=== PATIENT | female | born 1940 | race Caucasian/White ===

== ENCOUNTER 2020-10-01 11:09 | Outpatient (REF) | payer MEDICARE, SELFPAY | END 2020-10-01 11:10 | disposition home or self-care (01) | LOC: HO.HMGCLDS 11:09 | PROVIDERS: PCP Internal Medicine; Visit Provider Internal Medicine | DX: Z13.89 Encounter for screening for other disorder (principal) ==

== ENCOUNTER 2020-10-13 14:41 | Outpatient (REF) | payer MEDICARE, SELFPAY ==
--- NOTE | ~2020-10-13 | US_ITS ---
EXAMINATION: US EXTRACRANIAL CAROTID DUPLEX, BILATERAL CLINICAL INFORMATION: This is an 80-year-old female with left carotid bruit. Carotid artery disease. COMPARISON: None TECHNIQUE: Real-time ultrasound and Doppler techniques (integrating B-mode 2-D vascular images, Doppler spectral analysis and color-flow Doppler imaging) were utilized to interrogate the extracranial carotid arteries, the vertebral arteries and proximal subclavian arteries bilaterally. The degree of stenosis is determined by criteria similar to NASCET. FINDINGS: Right Side: 1. There is minimal atherosclerotic plaque seen in the bifurcation/proximal ICA region. 2. The common carotid artery PSV proximally is 123 cm/s and distally 104 cm/s. 3. The proximal internal carotid artery velocities are 95 cm/s systolic and 11 cm/s diastolic. 4. The proximal external carotid artery PSV is 106 cm/s. 5. The vertebral artery shows antegrade flow. 6. The subclavian artery waveforms are are stenotic with elevated velocities. The velocity measures 220 cm/s. Left Side: 1. There is minimal atherosclerotic plaque seen in the bifurcation/proximal ICA region. 2. The common carotid artery PSV proximally is 155 cm/s and distally 90 cm/s. 3. The proximal internal carotid artery velocities are 90 cm/s systolic and 22 cm/s diastolic. 4. The proximal external carotid artery PSV is 87 cm/s. 5. The vertebral artery shows antegrade flow. 6. The subclavian artery waveforms are normal. US/US carotid duplex BI IMPRESSION: 1. RIGHT: Minimal, non-hemodynamically significant stenosis of the proximal right internal carotid artery corresponding to a 0-49% stenosis by velocity criteria. 2. LEFT: Minimal, non-hemodynamically significant stenosis of the proximal left internal carotid artery corresponding to a 0-49% stenosis by velocity criteria. 3. There is a hemodynamically significant stenosis within the right subclavian artery. However, both vertebral arteries are antegrade.
== END 2020-10-13 14:42 | disposition home or self-care (01) ==
LOC: HO.US 14:41
PROVIDERS: PCP Internal Medicine; Visit Provider Internal Medicine
DX: R09.89 Other specified symptoms and signs involving the circulatory and respiratory systems (principal); E78.5 Hyperlipidemia, unspecified
CPT/HCPCS: 93880

== ENCOUNTER 2021-05-23 18:01 | Emergency (ER) | payer MEDICARE, SELFPAY ==
--- NOTE | ~2021-05-23 | CT_ITS ---
EXAMINATION: CT HEAD WITHOUT CONTRAST CLINICAL INFORMATION: Agitation. Altered mental status. COMPARISON: None TECHNIQUE: Contiguous axial imaging was performed from the skull base to vertex without intravenous administration of contrast. This CT examination was performed using dose optimization techniques as appropriate, variously including the following: *Automated exposure control *Adjustment of mA and/or kV according to patient size (this includes techniques or standardized protocols for targeted exams where dose is matched to indication/reason for exam; i.e. extremities or head) *Use of iterative reconstruction technique DLP: 647 mGy-cm FINDINGS: There is no evidence of an extra-axial collection. There is no evidence of intra or extra-axial hemorrhage. The ventricles and extra-axial CSF spaces are slightly prominent compatible with mild generalized atrophy. There is nonspecific periventricular white matter disease. No mass, mass effect or infarct is seen. Review of bone windows is normal. No skull fracture is seen. Visualized paranasal sinuses, mastoid air cells and middle ears are clear. CT/CT head/brain wo con IMPRESSION: No acute findings. Mild generalized atrophy and nonspecific periventricular white matter disease.
--- NOTE | ~2021-05-23 | XR_ITS ---
EXAMINATION: XR CHEST CLINICAL INFORMATION: Leukocytosis. Altered mental status. COMPARISON: None TECHNIQUE: Frontal view of the chest was obtained. FINDINGS: The cardiac and mediastinal contours are normal. There is question of atelectasis or small infiltrate at the right lung base. The lungs are otherwise clear. There is no pleural effusion or pneumothorax. There are degenerative changes of the spine. XR/XR chest 1V IMPRESSION: Question atelectasis or small infiltrate at the right lung base.
[2021-05-23 18:09] VITALS: BP 191/95; PULSE 86; RESP 18; TEMP 36.6; O2SAT 95; BMI 30.9
--- NOTE | 2021-05-23 18:33 | ECG_ITS ---
Test Reason : GENERAL MEDICAL Blood Pressure : / mmHG Vent. Rate : 091 BPM Atrial Rate : 091 BPM P-R Int : 174 ms QRS Dur : 072 ms QT Int : 376 ms P-R-T Axes : 063 028 043 degrees QTc Int : 462 ms Normal sinus rhythm Nonspecific ST abnormality Borderline ECG No previous ECGs available Referred By: Melina Bailey Electronically Signed By:LUIS DANIEL STEWART MD
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
[2021-05-23 19:32] LABS: MANUAL DIFF FLAG NO
[2021-05-23 19:33] LABS: Basophils Absolute Auto 0.1 X10*3/uL (0.0-0.2); Basophils Percent Auto 0.4 % (0-2); Eosinophils Absolute Auto 0.2 X10*3/uL (0.0-0.4); Eosinophils Percent Auto 1.2 % (0-4); Hematocrit 41.1 % (37.0-47.0); Hemoglobin 14.5 g/dl (12.0-16.0); Imm Gran Abs Auto 0.03 X10*3/uL (0.00-0.03); Imm Gran Pct Auto 0.2 % (0.0-0.4); Lymphocytes Absolute Auto 2.8 X10*3/uL (1.2-4.9); Lymphocytes Percent Auto 20.6 % (20-40); Mean Corpuscular HGB Conc 35.3 g/dl (31.0-35.0); Mean Corpuscular Hemoglobin 31.6 pg (27.0-33.0); Mean Corpuscular Volume 89.5 fL (80.0-98.0); Monocytes Absolute Auto 0.8 X10*3/uL (0.1-1.2); Monocytes Percent Auto 6.1 % (2-11); Neutrophils Absolute Auto 9.7 x10*3/uL (2.0-8.3); Neutrophils Percent Auto 71.5 % (45-73); Platelet Count 311 X10*3/uL (160-400); Red Blood Count 4.59 X10*6/uL (4.20-5.50); Red Cell Distribution Width 12.2 % (11.0-16.0); White Blood Count 13.5 X10*3/uL (4.8-10.8)
[2021-05-23 19:35] LABS: Appearance Urine CLEAR; Color Urine STRAW; Glucose Urine UA NEG (NEG); Leukocyte Esterase Urine NEG (NEG); Nitrite Urine NEG (NEG); Specific Gravity - Urine <= 1.005 (1.005-1.025); Urine Blood NEG (NEG); Urine Ketones 5 MG/DL (NEG); Urine Protein TRACE MG/DL (NEG-TRACE)
[2021-05-23 19:39] LABS: Ammonia 31 umol/L (13-55)
[2021-05-23 19:45] LABS: Ethanol < 10 mg/dL
[2021-05-23 19:48] LABS: Amphetamine Screen Urine Not Detected (Not Detect); Barbiturates, Urine Not Detected (Not Detect); Benzodiazepines Screen Urine Not Detected (Not Detect); Cannabinoid Screen Urine Not Detected (Not Detect); Cocaine Screen Urine Not Detected (Not Detect); Fentanyl, urine Not Detected (Not Detect); Opiate Screen Urine Not Detected (Not Detect); Phencyclidine Screen Urine Not Detected (Not Detect)
[2021-05-23 19:49] LABS: Alanine Aminotransferase 20 U/L (0-31); Albumin Level 4.4 g/dL (3.5-5.0); Alkaline Phosphatase 60 U/L (39-117); Anion Gap 15 (12-20); Aspartate Amino Transferase 27 U/L (5-31); Bilirubin Direct 0.3 mg/dL (0.0-0.5); Bilirubin Total 0.8 mg/dL (0.0-1.0); Blood Urea Nitrogen 11 mg/dL (9-16); Calcium 9.6 mg/dL (8.4-10.2); Carbon Dioxide 26 mmol/L (22-29); Chloride 103 mmol/L (96-108); Creatinine Clr Calc Pharmacy 42.7; Estimated Glomerular Filt Rate 54; Glucose Random 110 mg/dL (60-115); Magnesium 2.1 mg/dL (1.6-2.6); Potassium 3.5 mmol/L (3.3-5.1); Sodium 140 mmol/L (135-145); Total Protein 6.9 g/dL (6.5-8.0)
[2021-05-23 20:08] LABS: COVID-19 Test Negative (Negative)
[2021-05-23 23:28] VITALS: BP 134/55; PULSE 68; RESP 14; O2SAT 96
[2021-05-24 00:17] VITALS: BP 128/50; PULSE 68; RESP 16; TEMP 36.9; O2SAT 93
--- NOTE | 2021-05-24 04:23 | PC.NURSE ---
CHERELLE referral completed and confirmed by Berenice [facility] overnight intake specialists
--- NOTE | 2021-05-24 06:00 | PC.NURSE ---
Patient just got transferred from main ED, wandered little bit in the POD, currently in bed resting quietly, [facility] referral completed but on hold due to care team involvement with the patient, patient thought process is coherent, thought content paranoid, VSS, will continue to monitor.
--- NOTE | 2021-05-24 08:00 | PC.NURSE ---
patient appears to remain at rest at present respirations are even and unlabored, patient appears in no distress
--- NOTE | 2021-05-24 09:44 | MHC.CARE ---
CARE Team web development intern spoke with pt's son, Bennett, who expressed concerns regarding pt's recent memory difficulties and erratic behavior in the community. Bennett did not have specific concerns relating to medication management and advocated for inpatient admission due to concerns that pt will be upset when she returns home. This sports writer discussed the criteria for inpatient admission and recommendations from the CARE Team for further neurological testing in determining outpatient treatment course. This sports writer discussed with Bennett that case management will consult the case and reach out regarding available services and recommendations. CARE Team consulted case management who will follow up.
--- NOTE | 2021-05-24 11:27 | MHC.CM.ED ---
Received case management consult from Care Team. Patient was brought to the ER by Jostin MACEDO. Patient has been cleared by the Care Team. Patient's son, Bennett, is requesting additional resources. Patient has an undiagnosed memory issue. Information provided on [facility]. Bennett will be here around 11am to transport patient home. Farrah TRAMMELL and Dr Shah aware. Continue to monitor for d/c needs.
== END 2021-05-24 11:37 | disposition home or self-care (01) ==
PROVIDERS: Physician Assistant; Emergency Provider Emergency Medicine; PCP Internal Medicine
DX: R41.82 Altered mental status, unspecified (principal); R45.1 Restlessness and agitation; R51.9 Headache, unspecified; F43.20 Adjustment disorder, unspecified; F41.1 Generalized anxiety disorder; F43.0 Acute stress reaction; Z20.822 Contact with and (suspected) exposure to COVID-19; Z79.899 Other long term (current) drug therapy; Z63.79 Other stressful life events affecting family and household
CPT/HCPCS: 36415; 70450; 71045; 80048; 80076; 80307; 81003; 82077; 82140; 83735; 85025; 87635; 93005; 99284; 99285

== ENCOUNTER 2022-06-07 12:50 | Outpatient (REF) | payer OTHER, SELFPAY | END 2022-06-07 12:51 | disposition home or self-care (01) | LOC: HO.SH 12:50 | PROVIDERS: Visit Provider Internal Medicine | DX: Z01.118 Encounter for examination of ears and hearing with other abnormal findings (principal); H90.3 Sensorineural hearing loss, bilateral | CPT/HCPCS: 92557; 92567 ==

== ENCOUNTER 2022-08-31 15:01 | Outpatient (REF) | payer OTHER, SELFPAY ==
[2022-08-31 16:49] LABS: MANUAL DIFF FLAG NO
[2022-08-31 16:56] LABS: Basophils Absolute Auto 0.1 X10*3/uL (0.0-0.2); Basophils Percent Auto 0.8 % (0-2); Eosinophils Absolute Auto 0.2 X10*3/uL (0.0-0.4); Eosinophils Percent Auto 1.8 % (0-4); Hematocrit 41.5 % (37.0-47.0); Hemoglobin 14.2 g/dl (12.0-16.0); Imm Gran Abs Auto 0.03 X10*3/uL (0.00-0.03); Imm Gran Pct Auto 0.3 % (0.0-0.4); Lymphocytes Absolute Auto 3.8 X10*3/uL (1.2-4.9); Lymphocytes Percent Auto 35.5 % (20-40); Mean Corpuscular HGB Conc 34.2 g/dl (31.0-35.0); Mean Corpuscular Hemoglobin 31.1 pg (27.0-33.0); Mean Platelet Volume 10.6 fL (9.4-12.3); Monocytes Absolute Auto 0.7 X10*3/uL (0.1-1.2); Monocytes Percent Auto 6.8 % (2-11); Neutrophils Absolute Auto 5.8 x10*3/uL (2.0-8.3); Neutrophils Percent Auto 54.8 % (45-73); Platelet Count 373 X10*3/uL (160-400); Red Blood Count 4.56 X10*6/uL (4.20-5.50); Red Cell Distribution Width 11.9 % (11.0-16.0); White Blood Count 10.6 X10*3/uL (4.8-10.8)
[2022-08-31 18:28] LABS: Alanine Aminotransferase 20 U/L (0-31); Albumin Level 4.4 g/dL (3.5-5.0); Alkaline Phosphatase 76 U/L (39-117); Anion Gap 15 (12-20); Aspartate Amino Transferase 27 U/L (5-31); Bilirubin Total 0.6 mg/dL (0.0-1.0); Blood Urea Nitrogen 16 mg/dL (9-16); C Reactive Protein 0.98 mg/dL (< or = 0.50); Calcium 9.8 mg/dL (8.4-10.2); Carbon Dioxide 30 mmol/L (22-29); Chloride 101 mmol/L (96-108); Estimated Glomerular Filt Rate 50; Glucose Random 91 mg/dL (60-115); Potassium 4.6 mmol/L (3.3-5.1); Sodium 141 mmol/L (135-145)
[2022-08-31 18:48] LABS: Folate 11.6 ng/mL (> or = 4.0); TSH reflex Free T4 2.18 uIU/mL (0.32-4.0); Vitamin B12 600 pg/mL (200-900); Vitamin D 25-OH Total 54.9 ng/mL (>30)
== END 2022-08-31 15:02 | disposition home or self-care (01) ==
LOC: HO.HMGCLDS 15:01
PROVIDERS: PCP Internal Medicine; Visit Provider Internal Medicine
DX: R26.89 Other abnormalities of gait and mobility (principal); I10 Essential (primary) hypertension
CPT/HCPCS: 36415; 80053; 82306; 82607; 82746; 84443; 85025; 86140

== ENCOUNTER 2022-12-12 10:39 | Day surgery (SDC) | payer OTHER, MEDICARE, SELFPAY ==
[2022-12-07 13:20] VITALS: BMI 32.6
--- NOTE | 2022-12-09 08:12 | MHC.SHP ---
Pre-Procedural Eval Section A Date of Service: 12/09/22 The patient is an INPATIENT: No Changes since office visit: No Cold of Flu in the past 2 weeks, No New Medical Problems, No Changes in Medication and No Patient answered all questions The History & Physical has been completed within 30 days and I have reviewed it.: Yes Section B Chief Complaint: Age-related nuclear cataract, right eye Allergies: Allergies Allergy/AdvReac Type Severity Reaction Status Date / Time No Known Allergies Allergy Verified 12/07/22 12:39 Plan Diagnosis/Plan: Unchanged I have reviewed the history and physical and performed a pertinent physical examination on my patient. No changes have occurred unless specified. Time Spent With Patient Time: Total time managing care of this patient today ____ minutes.
--- NOTE | 2022-12-09 09:37 | P.CONAN_ITS ---
Documented by User: Bhumi Govea NP 12/09/22 09:38 HPI - Anesthesia Eval Consult details Narrative: 82yo F for Right Cataract Multifocal with IOL Insertion PCP cleared No previous cataract on record PMF Active Problems Active Problems: All Active Problems (Updated 12/07/22 @ 13:35 by Betty Arevalo MD) Cataract (Acute) Tooth pulpitis (Acute) Poor dentition (Acute) Hearing loss (Acute) HTN (hypertension) (Acute) Poor balance (Acute) Glaucoma (Acute) Hyperlipidemia (Acute) Left carotid bruit (Acute) Past Medical History Medical History Glaucoma Head trauma HTN (hypertension) Hyperlipidemia Left carotid bruit Family History Family History Father No problems noted. Mother No problems noted. Surgical History Surgical History H/O colonoscopy H/O left knee surgery Social History Social History Household Members: Children Household Members Other:: [facility] - assisted Living Housing: House Are you a primary property caretaker to a significant other at home: No Alcohol intake: current Alcohol intake frequency: holidays/special occasions only Patient Tobacco Use Status: Never used Tobacco e-Cigarette/Vaping Use: Never Used Second Hand Smoke Exposure: No Use of substances other than those prescribed or required for medical reasons: No Have you been hit, kicked, punched, or otherwise hurt by someone within the past year? If so, by whom?: No Are you DNR?: No Advance Directives: No Advance Directives Information Provided: Yes Advance Directives on File: No Recently lost weight without trying: No Eating poorly because of decreased appetite: No Nutrition Risks: No Nutritional Risk Current occupational status: retired Cognitive needs: No Hearing needs: No Vision needs: Yes Meds Allergies Allergy/AdvReac Type Severity Reaction Status Date / Time No Known Allergies Allergy Verified 12/07/22 12:39 Home Medications Medication Instructions Recorded Confirmed Last Taken Type brimonidine 0.2 % eye drops 1 drp ophthalmic (eye) BID 05/24/21 09/08/22 Unknown History latanoprost 0.005 % eye drops 1 drp ophthalmic (eye) BEDTIME 05/24/21 12/07/22 Unknown History omega-3 fatty acids 1,000 mg PO DAILY 05/24/21 12/07/22 Unknown History elderberry fruit 350 mg capsule mg PO 08/31/22 09/08/22 Unknown History Exam Exam Date and Time: December 09, 2022 0937 Height,Weight and Vital Signs: Height 5 ft 2 in Weight 80.739 kg Assessment and Plan Assessment Anesthesia Assessment: Chart Reviewed Documented by User: Jaycob Steiner MD 12/12/22 12:06 [facility]LY [facility] Past Medical History Medical History Glaucoma Head trauma HTN (hypertension) Hyperlipidemia Left carotid bruit Family History Family History Father No problems noted. Mother No problems noted. Family history of problems with anesthesia: No Surgical History Surgical History H/O colonoscopy H/O left knee surgery History of Problems with Anesthesia: No Social History Social History Household Members: Children Household Members Other:: [facility] - assisted Living Housing: House Are you a primary property caretaker to a significant other at home: No Alcohol intake: current Alcohol intake frequency: holidays/special occasions only Patient Tobacco Use Status: Never used Tobacco e-Cigarette/Vaping Use: Never Used Second Hand Smoke Exposure: No Use of substances other than those prescribed or required for medical reasons: No Have you been hit, kicked, punched, or otherwise hurt by someone within the past year? If so, by whom?: No Are you DNR?: No Advance Directives: No Advance Directives Information Provided: Yes Advance Directives on File: No Recently lost weight without trying: No Eating poorly because of decreased appetite: No Nutrition Risks: No Nutritional Risk Current occupational status: retired Cognitive needs: No Hearing needs: No Vision needs: Yes Meds Allergies Allergy/AdvReac Type Severity Reaction Status Date / Time No Known Allergies Allergy Verified 12/07/22 12:39 Home Medications Medication Instructions Recorded Confirmed Last Taken Type brimonidine 0.2 % eye drops 1 drp ophthalmic (eye) BID 05/24/21 09/08/22 Unknown History latanoprost 0.005 % eye drops 1 drp ophthalmic (eye) BEDTIME 05/24/21 12/07/22 Unknown History omega-3 fatty acids 1,000 mg PO DAILY 05/24/21 12/07/22 Unknown History elderberry fruit 350 mg capsule mg PO 08/31/22 09/08/22 Unknown History Exam Airway Mallampati Class: II TM Dist: >3cm Neck ROM: Full Loose/Missing/Broken Teeth: Yes (extremely poor dentition globally) Heart: [id number] Lungs: cta b/l Assessment and Plan Assessment Anesthesia Assessment: Anesthesia Plan Discussed Final Anesthetic Review Family History of Problems with Anesthesia: No History of Problems with Anesthesia: No NPO: Yes ASA Class: III Final Preanesthetic Review: No Changes in Pt Med Stat, Meds/Allgs Chart Reviewed, Consent Obtained/Reviewed and Anes Risks/Benef Reviewed Patient Risk: Intermediate Procedure Risk: Low Assessment/Block/Sedation in SS: Assess/Block/Sedation-SS Anesthetic Plan Anesthetic Plan: MAC: and Agree w/ Assess. and Plan Disposition: Standard PACU
[2022-12-12 11:14] VITALS: BP 157/75; PULSE 81; RESP 16; TEMP 36.4; O2SAT 95
[2022-12-12] MEDS: Tetracaine HCl/PF 0.5% Oph Sol 4 ML DROPS 1 DROP EYE-RIGHT (11:17)
[2022-12-12] MEDS: Lactated Ringers 500 ML 50 ML IV (11:17)
[2022-12-12] MEDS: Cyclopentolate 1 % Ophth Sol 2 ML DRPBTL 1 DROP EYE-RIGHT ×3 (11:18→11:28)
[2022-12-12] MEDS: Tropicamide 1 % Ophth Sol 3 ML BTL 1 DROP EYE-RIGHT ×3 (11:19→11:29)
[2022-12-12] MEDS: Ketorolac Tromethamine 0.5% Op 5 ML DROPS 1 DROP EYE-RIGHT ×3 (11:20→11:29)
[2022-12-12] MEDS: Phenylephrine HCL 2.5% Oph SoL 2 ML BOTTLE 1 DROP EYE-RIGHT ×3 (11:23→11:31)
--- NOTE | 2022-12-12 11:54 | HO.PNOPHT ---
Ophthalmology Procedure Procedure Date of Service: 12/12/22 Ophthalmology Viscoelastic: Jes Umanzort Dual Pack Pro Ophthalmology Lenses: TECSHALOM [id number] (21) Procedure Notes: PREOPERATIVE DIAGNOSIS: Decreased visual acuity right eye secondary to cataract POSTOPERATIVE DIAGNOSIS: Same PROCEDURE: Right cataract extraction with intraocular lens insertion SURGEON: Chintan Good M.D. ANESTHESIA: Topical/MAC ESTIMATED BLOOD LOSS: None COMPLICATIONS: None After obtaining informed consent, the patient was brought to the operating room suite and placed in the supine position. After adequate sedation per anesthesia, topical drops of Tetracaine were given to the right eye. The eye was then prepped and draped in the usual sterile fashion. The operating room microscope was then positioned over the operative eye and a lid speculum placed. A paracentesis was created. Viscoelastic was then instilled into the anterior chamber. A three plane incision was then created temporally, utilizing a 2.85 mm keratome. Capsulotomy forceps were then utilized to create a circular tear capsulotomy. Hydrodissection and hydrodelineation were carried out until adequate mobilization of the nucleus occurred. Phacoemulsification was then utilized to remove the dense central nucleus followed by removal of the cortical material utilizing the automated aspiration irrigation unit. Viscoelastic was instilled into the posterior capsular bag followed by placement of a posterior chamber intraocular lens without difficulty. The residual Viscoelastic was then removed utilizing the automated IA machine. The wound was checked and found to be watertight. The patient tolerated the procedure well and the lid speculum was removed. Intracameral injection of Vigamox 0.1 mL followed by a subtenon injection of Kenalog-40 0.2 mL were administered. The patient will be seen in the a.m.
[2022-12-12 12:30] VITALS: BP 160/69; PULSE 64; RESP 18; TEMP 36.3; O2SAT 99
== END 2022-12-12 12:41 | disposition home or self-care (01) ==
PROVIDERS: PCP Internal Medicine; Visit Provider Ophthalmology
PROC: (CPT 66985; principal; 2022-12-12 12:50)
DX: H25.11 Age-related nuclear cataract, right eye (principal); H54.7 Unspecified visual loss; H40.1422 Capsular glaucoma with pseudoexfoliation of lens, left eye, moderate stage; Z83.511 Family history of glaucoma; I10 Essential (primary) hypertension; J45.909 Unspecified asthma, uncomplicated; Z79.899 Other long term (current) drug therapy; Z88.8 Allergy status to other drugs, medicaments and biological substances; Z87.891 Personal history of nicotine dependence
CPT/HCPCS: 66984; J2250; J3301; V2632

== ENCOUNTER 2022-12-26 09:22 | Day surgery (SDC) | payer OTHER, SELFPAY ==
[2022-09-07 10:30] VITALS: BMI 31.1
[2022-12-07 15:18] VITALS: BMI 32.6
--- NOTE | 2022-12-22 14:58 | HO.ANESPROP2 ---
Documented by User: Bhumi Govea NP 12/22/22 14:59 HPI - Anesthesia Eval Consult details Narrative: 82yo F for Left Cataract Multifocal with IOL Insertion PCP cleared Right eye 12/12/22 with MAC: midaz 1 PMFSH Active Problems Active Problems: All Active Problems (Updated 12/07/22 @ 13:35 by Betty Arevalo MD) Cataract (Acute) Tooth pulpitis (Acute) Poor dentition (Acute) Hearing loss (Acute) HTN (hypertension) (Acute) Poor balance (Acute) Glaucoma (Acute) Hyperlipidemia (Acute) Left carotid bruit (Acute) Past Medical History Medical History Glaucoma Head trauma HTN (hypertension) Hyperlipidemia Left carotid bruit Family History Family History Father No problems noted. Mother No problems noted. Family history of problems with anesthesia: No Surgical History Surgical History H/O colonoscopy H/O left knee surgery History of Problems with Anesthesia: No Social History Social History Household Members: Children Household Members Other:: [facility] - assisted Living Housing: House Are you a primary healthcare network pricing consultant to a significant other at home: No Alcohol intake: current Alcohol intake frequency: holidays/special occasions only Patient Tobacco Use Status: Never used Tobacco e-Cigarette/Vaping Use: Never Used Second Hand Smoke Exposure: No Are you DNR?: No Advance Directives: No Advance Directives Information Provided: Yes Advance Directives on File: No Recently lost weight without trying: No Nutrition Risks: No Nutritional Risk Current occupational status: retired Cognitive needs: No Hearing needs: No Vision needs: Yes Meds Allergies Allergy/AdvReac Type Severity Reaction Status Date / Time No Known Allergies Allergy Verified 12/07/22 12:39 Home Medications Medication Instructions Recorded Confirmed Last Taken Type brimonidine 0.2 % eye drops 1 drp ophthalmic (eye) BID 05/24/21 09/08/22 Unknown History latanoprost 0.005 % eye drops 1 drp ophthalmic (eye) BEDTIME 05/24/21 12/07/22 Unknown History omega-3 fatty acids 1,000 mg PO DAILY 05/24/21 12/07/22 Unknown History elderberry fruit 350 mg capsule mg PO 08/31/22 09/08/22 Unknown History Exam Exam Date and Time: December 22, 2022 1458 Height,Weight and Vital Signs: Height 5 ft 2 in Weight 80.739 kg Assessment and Plan Assessment Anesthesia Assessment: Chart Reviewed Final Anesthetic Review Family History of Problems with Anesthesia: No History of Problems with Anesthesia: No Documented by User: Sachin Ibrahim MD 12/26/22 10:08 [facility] Past Medical History Medical History Glaucoma Head trauma HTN (hypertension) Hyperlipidemia Left carotid bruit Family History Family History Father No problems noted. Mother No problems noted. Surgical History Surgical History H/O colonoscopy H/O left knee surgery Social History Social History Household Members: Children Household Members Other:: [facility] - assisted Living Housing: House Are you a primary healthcare network pricing consultant to a significant other at home: No Alcohol intake: current Alcohol intake frequency: holidays/special occasions only Patient Tobacco Use Status: Never used Tobacco e-Cigarette/Vaping Use: Never Used Second Hand Smoke Exposure: No Are you DNR?: No Advance Directives: No Advance Directives Information Provided: Yes Advance Directives on File: No Recently lost weight without trying: No Nutrition Risks: No Nutritional Risk Current occupational status: retired Cognitive needs: No Hearing needs: No Vision needs: Yes Meds Allergies Allergy/AdvReac Type Severity Reaction Status Date / Time No Known Allergies Allergy Verified 12/07/22 12:39 Home Medications Medication Instructions Recorded Confirmed Last Taken Type brimonidine 0.2 % eye drops 1 drp ophthalmic (eye) BID 05/24/21 09/08/22 Unknown History latanoprost 0.005 % eye drops 1 drp ophthalmic (eye) BEDTIME 05/24/21 12/07/22 Unknown History omega-3 fatty acids 1,000 mg PO DAILY 05/24/21 12/07/22 Unknown History elderberry fruit 350 mg capsule mg PO 08/31/22 09/08/22 Unknown History Exam Airway Mallampati Class: II TM Dist: >3cm Neck ROM: Full Loose/Missing/Broken Teeth: Yes, Upper and Lower Assessment and Plan Assessment Anesthesia Assessment: Anesthesia Plan Discussed Final Anesthetic Review NPO: Yes ASA Class: II Final Preanesthetic Review: No Changes in Pt Med Stat, Meds/Allgs Chart Reviewed, Consent Obtained/Reviewed and Anes Risks/Benef Reviewed Patient Risk: Low Procedure Risk: Low Anesthetic Plan Anesthetic Plan: MAC: Disposition: Standard PACU
--- NOTE | 2022-12-23 08:56 | MHC.SHP ---
Pre-Procedural Eval Section A Date of Service: 12/23/22 The patient is an INPATIENT: No Changes since office visit: No Cold of Flu in the past 2 weeks, No New Medical Problems, No Changes in Medication and No Patient answered all questions The History & Physical has been completed within 30 days and I have reviewed it.: Yes Section B Chief Complaint: Age-related nuclear cataract, left eye Allergies: Allergies Allergy/AdvReac Type Severity Reaction Status Date / Time No Known Allergies Allergy Verified 12/07/22 12:39 Plan Diagnosis/Plan: Unchanged I have reviewed the history and physical and performed a pertinent physical examination on my patient. No changes have occurred unless specified. Time Spent With Patient Time: Total time managing care of this patient today ____ minutes.
[2022-12-26 09:28] VITALS: BP 170/89; PULSE 77; RESP 20; TEMP 36.1; O2SAT 98
[2022-12-26] MEDS: Phenylephrine HCL 2.5% Oph SoL 2 ML BOTTLE 1 DROP EYE-LEFT ×3 (09:45→09:47)
[2022-12-26] MEDS: Cyclopentolate 1 % Ophth Sol 2 ML DRPBTL 1 DROP EYE-LEFT ×3 (09:45→09:47)
[2022-12-26] MEDS: Ketorolac Tromethamine 0.5% Op 5 ML DROPS 1 DROP EYE-LEFT ×3 (09:45→09:47)
[2022-12-26] MEDS: Tetracaine HCl/PF 0.5% Oph Sol 4 ML DROPS 1 DROP EYE-LEFT (09:45)
[2022-12-26] MEDS: Tropicamide 1 % Ophth Sol 3 ML BTL 1 DROP EYE-LEFT ×3 (09:45→09:47)
[2022-12-26] MEDS: Lactated Ringers 500 ML 50 ML IV (09:45)
--- NOTE | 2022-12-26 10:09 | PC.NURSE ---
PT FELL YESTERDAY DENIES LOC DENIES HITTING HEAD DENIES PAIN ANESTHESIA AWARE NEUROS INTACT
--- NOTE | 2022-12-26 10:33 | HO.PNOPHT ---
Ophthalmology Procedure Procedure Date of Service: 12/26/22 Ophthalmology Viscoelastic: Healon Duet Dual Pack Pro Ophthalmology Lenses: TECNIS [id number] (20.5) Procedure Notes: PREOPERATIVE DIAGNOSIS: Decreased visual acuity left eye secondary to cataract POSTOPERATIVE DIAGNOSIS: Same PROCEDURE: Left cataract extraction with intraocular lens insertion SURGEON: Chintan Good M.D. ANESTHESIA: Topical/MAC ESTIMATED BLOOD LOSS: None COMPLICATIONS: None After obtaining informed consent, the patient was brought to the operation room suite and placed in the supine position. After adequate sedation per anesthesia, topical drops of Tetracaine were given to the left eye. The eye was then prepped and draped in the usual sterile fashion. The operating room microscope was then positioned over the operative eye and a lid speculum placed. A paracentesis was created. Viscoelastic was then instilled into the anterior chamber. A three plane incision was then created temporally, utilizing a 2.85 mm keratome. Capsulotomy forceps were then utilized to create a circular tear capsulotomy. Hydrodissection and hydrodelineation were carried out until adequate mobilization of the nucleus occurred. Phacoemulsification was then utilized to remove the dense central nucleus followed by removal of the cortical material utilizing the automated aspiration irrigation unit. Viscoat elastic was instilled into the posterior capsular bag followed by placement of a posterior chamber intraocular lens without difficulty. The residual Viscoat elastic was then removed utilizing the automated IA machine. The wound was check and found to be watertight. The patient tolerated the procedure well and the lid speculum was removed. Intracameral injection of Vigamox 0.1 mL followed by a subtenon injection of Kenalog-40 0.2 mL were administered. The patient will be seen in the a.m.
[2022-12-26 11:03] VITALS: BP 177/78; PULSE 66; RESP 18; TEMP 36.2; O2SAT 97
== END 2022-12-26 11:06 | disposition home or self-care (01) ==
PROVIDERS: PCP Internal Medicine; Visit Provider Ophthalmology
PROC: (CPT 66985; principal; 2022-12-26 10:50)
DX: H25.12 Age-related nuclear cataract, left eye (principal); H54.7 Unspecified visual loss; H40.1422 Capsular glaucoma with pseudoexfoliation of lens, left eye, moderate stage; I10 Essential (primary) hypertension; E78.5 Hyperlipidemia, unspecified; D64.9 Anemia, unspecified; J45.909 Unspecified asthma, uncomplicated; Z79.899 Other long term (current) drug therapy
CPT/HCPCS: 66984; J2250; J3301; V2632

== ENCOUNTER 2023-03-23 12:17 | Outpatient (AMB) | payer OTHER, SELFPAY ==
--- NOTE | 2023-03-23 12:53 | MHC.PC.OV ---
Vital Signs 03/23/23 12:54 Height 5 ft 2 in Weight 196 lb BMI 35.8 BP 140/82 H Blood Pressure Location Lt brachial Position Sitting Pulse 86 Pulse Source Pulse Oximeter Pulse Oximetry (%) 97 Oxygen Delivery Method Room Air Intake Visit Reasons: ER [facility] after fall 03/17 Intake Note: Pt is here today for ER follow up. Allergies No Known Allergies Allergy (Verified 03/23/23 12:54) Tobacco use date assessed: 03/23/23 Fall risk assessment: 2 + Falls in past year Last assessed Fall Risk: 03/23/23 Dental Screening Dental Screen Date: 03/23/23 Did you have a dental visit in the last 12 months?: No Did you have a dental problem in the last 6 months where you did not have access to dental care?: No Was dental information given to patient?: Patient declined HPI ER [facility] after fall 03/17 HPI Details Pt presents for f/u of ER visit after a fall. She fell on the right side and developed hematoma over the right buttock and thigh that is slowly improving. Workup in the ER including brain CT was negative. Hypertension is controlled on amlodipine PFSH Medical History HTN (hypertension) Hyperlipidemia Left carotid bruit Head trauma Glaucoma Surgical History H/O left knee surgery H/O colonoscopy Family History Father No problems noted. Mother No problems noted. Social History Household Members: Children Household Members Other:: [facility] - assisted Living Housing: House Are you a primary patient care technician to a significant other at home: No Alcohol intake: current Alcohol intake frequency: holidays/special occasions only Patient Tobacco Use Status: Never used Tobacco e-Cigarette/Vaping Use: Never Used Second Hand Smoke Exposure: No Current occupational status: retired Cognitive needs: No Hearing needs: No Vision needs: Yes Questionnaire Thrive Questionnaire Date Thrive assessed: 08/31/22 RADHA-7 AMB Questionnaire RADHA-7 Date RADHA - 7 assessed: 08/31/22 Source: Developed by Drs. Jan Lebron, Rachel Azul, Gualberto Parada and colleagues, with an educational chava from [employer]. Review of Systems Const All systems reviewed & are unremarkable except as noted in HPI and below Reports no additional complaints Eyes Reports no additional complaints ENT Reports no additional complaints Card Reports no additional complaints Resp Reports no additional complaints GI Reports no additional complaints Reports no additional complaints Physical exam (Primary Care) Vital Signs: Last Vital Signs Pulse 86 03/23/23 12:54 BP 160/82 H 03/23/23 12:54 Pulse Ox 97 03/23/23 12:54 Oxygen Delivery Method Room Air 03/23/23 12:54 BMI result Body Mass Index 35.8 Tobacco/Smoking Status: Tobacco use Status Tobacco use date assessed 03/23/23 03/23/23 13:03 Patient Tobacco Use Status Never used Tobacco 03/23/23 13:03 e-Cigarette/Vaping Use Never Used 03/23/23 12:53 Thrive Assessment: Date of Thrive Assessment Date Thrive assessed 08/31/22 03/23/23 12:53 Const General: no acute distress HENMT Mouth: Normal oral and palatal mucosa present Eyes General: appearance normal, both eyes and all related structures Neck Neck: Yes supple Resp Auscultation: clear to auscultation bilaterally Cardio Rhythm: regular rhythm Heart sounds: S1 normal heart sound present and S2 normal heart sound present GI Palpation (GI): Soft to palpation Auscultation: normal bowel sounds Skin Other: Extensive subcutaneous hematoma over right buttock and lateral thigh Assessment and Plan Assessment & Plan (1) HTN (hypertension): Code(s): I10 - Essential (primary) hypertension Plan: Increase amlodipine to 2.5 mg twice a day, patient will monitor blood pressure at home and follow-up in 1 month for blood pressure check (2) Hematoma: Code(s): T14.8XXA - Other injury of unspecified body region, initial encounter Plan: Supportive care discussed with the patient Coding Level of Care Code Est Pt Level 3 (68110) Diagnoses HTN (hypertension) I10 Hematoma T14.8XXA
[2023-03-23 12:54] VITALS: BP 140/82; PULSE 86; O2SAT 97; BMI 35.8
== END 2023-03-23 15:18 | disposition home or self-care (01) ==
PROVIDERS: PCP Internal Medicine; Visit Provider Internal Medicine
DX: I10 Essential (primary) hypertension (principal); T14.8XXA Other injury of unspecified body region, initial encounter
CPT/HCPCS: 99213

== ENCOUNTER 2024-03-28 14:24 | Outpatient (AMB) | payer MEDICARE, OTHER, SELFPAY ==
[2024-03-28 14:31] VITALS: BP 135/80; PULSE 76; O2SAT 97; BMI 34.0
--- NOTE | 2024-03-28 14:31 | MHC.PC.OV ---
Vital Signs 03/28/24 14:31 03/28/24 15:09 Height 5 ft 2 in Weight 186 lb BMI 34.0 BP 135/80 139/78 Blood Pressure Location Rt brachial Rt brachial Position Sitting Standing Pulse 76 Pulse Source Pulse Oximeter Pulse Oximetry (%) 97 Oxygen Delivery Method Room Air Intake Visit Reasons: multiple falls Intake Note: Pt is here today for a follow up visit. Pt states that she had multiple falls. Allergies No Known Allergies Allergy (Verified 03/28/24 14:34) Medication List - Last Reconciled 03/28/24 by Betty Arevalo MD amlodipine 2.5 mg PO DAILY blood pressure monitor As directed to monitor blood pressure brimonidine 0.2% 1 drp ophthalmic (eye) BID cholecalciferol (vitamin D3) (Vitamin D3) 25 mcg PO DAILY elderberry fruit mg PO latanoprost 0.005% 1 drp ophthalmic (eye) BEDTIME miscellaneous medical supply Blood pressure cuff as directed QD; omega-3 fatty acids 1,000 mg PO DAILY Tobacco use date assessed: 03/23/23 Dental Screening Dental Screen Date: 03/23/23 HPI multiple falls HPI Details Patient presents for the follow-up of ER visits for frequent falls. She has been tripping over and falling but denies head injury. Patient reports feeling off balance when standing up. She denies lightheadedness chest pain shortness of breath palpitations. Patient denies weakness or numbness in extremities, change in bowel bladder function. Patient has been taking amlodipine and her blood pressure is usually well controlled according to the patient. [facility] Medical History HTN (hypertension) Hyperlipidemia Left carotid bruit Head trauma Glaucoma Surgical History H/O left knee surgery H/O colonoscopy Family History Father No problems noted. Mother No problems noted. Social History Household Members: Children Household Members Other:: [facility] assisted [facility] Housing: House Are you a primary health care consultant to a significant other at home: No Alcohol intake: current Alcohol intake frequency: holidays/special occasions only Patient Tobacco Use Status: Never used Tobacco e-Cigarette/Vaping Use: Never Used Second Hand Smoke Exposure: No Current occupational status: retired Cognitive needs: No Hearing needs: No Vision needs: Yes Questionnaire PHQ-9 Over the last 2 weeks, how often have you been bothered by any of the following problems? 1. Little interest or pleasure in doing things: not at all 2. Feeling down, depressed, or hopeless: not at all 3. Trouble falling or staying asleep, or sleeping too much: not at all 4. Feeling tired or having little energy: not at all 5. Poor appetite or overeating: not at all 6. Feeling bad about yourself - or that you are a failure or have let yourself or your family down: not at all 7. Trouble concentrating on things, such as reading the newspaper or watching television: not at all 8. Moving or speaking so slowly that other people could have noticed. Or the opposite - being so fidgety or restless that you have been moving around a lot more than usual: not at all 9. Thoughts that you would be better off or of hurting yourself in some way: not at all Total score: 0 Depression Screening Interpretation: Negative Depression Screening Done: Yes 89754 - PHQ-9 Billing: Yes Source: Developed by Drs. Jan Lebron, Rachel Azul, Gualberto Parada and colleagues, with an educational chava from [employer]. Thrive Questionnaire Date Thrive assessed: 03/28/24 I am a: Patient What is your living situation today?: I choose not to answer this question Within the past 12 months, did the food you bought not last and you didn't have the money to get more?: I choose not to answer this question Within the past 12 months, did you worry whether your food would run out before you got money to buy more?: I choose not to answer this question Do you have trouble paying for medicines?: I choose not to answer this question Do you have trouble getting transportation to medical appointments?: I choose not to answer this question Do you have trouble paying your heating and electricity bill?: I choose not to answer this question Do you have trouble taking care of your child, family member or friend?: I choose not to answer this question Do you have trouble with day-to-day activities such as bathing, preparing meals, shopping, managing finances, etc.?: I choose not to answer this question Are you currently unemployed and looking for a job?: I choose not to answer this question Are you interested in more education?: I choose not to answer this question Please select the resources that you would like help with: None Currently or been in a relationship where the following occur: I choose not to answer THRIVE Score: 0 AUDIT C Alcohol Use Questionnaire (AUDIT-C) 1. How often do you have a drink containing alcohol?: Never 3. How often do you have six or more drinks on one occasion?: Never Total Score: 0 RADHA-7 AMB Questionnaire RADHA-7 Date RADHA - 7 assessed: 03/28/24 Feeling nervous, anxious, or on edge: 0 = Not at all Not being able to stop or control worryin = Not at all Worrying too much about different things: 0 = Not at all Trouble relaxin = Not at all Being so restless that it is hard to sit still: 0 = Not at all Becoming easily annoyed or irritable: 0 = Not at all Feeling afraid as if something awful might happen: 0 = Not at all Total RADHA-7 score (0-4 normal; 5-9 mild; 10-14 moderate; 15-21 severe): 0 Source: Developed by Drs. Jan Lebron, Rachel Azul, Gualberto Parada and colleagues, with an educational chava from [employer]. RADHA-7 Assessment Billing RADHA-7 Assessment Tool: RADHA-7 Assessment 22828 Review of Systems Const All systems reviewed & are unremarkable except as noted in HPI and below Eyes Reports no additional complaints Card Reports no additional complaints Resp Reports no additional complaints GI Reports no additional complaints Reports no additional complaints Physical exam (Primary Care) Vital Signs: Last Vital Signs Pulse 76 03/28/24 14:31 Pulse Ox 97 03/28/24 14:31 Oxygen Delivery Method Room Air 03/28/24 14:31 BMI result Body Mass Index 34.0 Tobacco/Smoking Status: Tobacco use Status Tobacco use date assessed 03/23/23 03/28/24 14:37 Patient Tobacco Use Status Never used Tobacco 03/28/24 14:37 e-Cigarette/Vaping Use Never Used 03/28/24 14:37 PHQ-9: PHQ-9 Score PHQ-9: Total score 0 03/28/24 14:37 Depression Screening Interpretation: Negative Thrive Assessment: Date of Thrive Assessment Date Thrive assessed 03/28/24 03/28/24 14:37 Currently or been in a relationship where the following occur: I choose not to answer Const General: no acute distress HENMT Head: Yes normal to inspection Ears: hearing grossly normal bilaterally Eyes General: appearance normal, both eyes and all related structures Neck Neck: Yes supple Resp Effort & Inspection: normal respiratory effort Auscultation: clear to auscultation bilaterally Cardio Rhythm: regular rhythm Heart sounds: S1 normal heart sound present and S2 normal heart sound present GI Inspection: Yes normal to inspection Palpation (GI): Soft to palpation Neuro Other: Masklike face, increase muscle tone upper and lower extremities bilaterally General: CN's II-XI intact bilaterally Gait exam (Neuro): Shuffling gait present Motor exam (neuro): 5/5 motor strength present throughout and Motor abnormalities not present Coordination: [id number] test normal Romberg Test: Negative Assessment and Plan Assessment & Plan (1) HTN (hypertension): Code(s): I10 - Essential (primary) hypertension Plan: Continue amlodipine. Patient will have blood pressure monitored at the assisted living and amlodipine may need to be increased to twice a day if the blood pressure is persistently elevated (2) Poor balance: Code(s): R26.89 - Other abnormalities of gait and mobility Plan: Start physical therapy and refer to [facility] neurologist for evaluation for possible Parkinson's disease Orders: Referrals Neurology Referral G20.A1 - Parkinson's disease without dyskinesia, without mention of fluctuations, R26.89 - Other abnormalities of gait and mobility Coding Level of Care Code Est Pt Level 4 (42958) Diagnoses HTN (hypertension) I10 Poor balance R26.89 Additional Codes RADHA-7 Assessment Billing - RADHA-7 Assessment Tool: RADHA-7 Assessment 09967 ([id number])
[2024-03-28 15:09] VITALS: BP 139/78
== END 2024-03-28 15:06 | disposition home or self-care (01) ==
PROVIDERS: PCP Internal Medicine; Visit Provider Internal Medicine
DX: I10 Essential (primary) hypertension (principal); R26.89 Other abnormalities of gait and mobility

== ENCOUNTER → 2024-03-28 14:24 | Outpatient (BNVA) | payer OTHER, SELFPAY | PROVIDERS: PCP Internal Medicine; Visit Provider Internal Medicine | DX: I10 Essential (primary) hypertension (principal); R26.89 Other abnormalities of gait and mobility; Z79.899 Other long term (current) drug therapy | CPT/HCPCS: 96127; 99212 ==

== ENCOUNTER 2024-06-06 10:59 | Outpatient (AMB) | payer MEDICARE, SELFPAY ==
[2024-06-06 11:16] VITALS: BP 126/66; PULSE 79; O2SAT 97; BMI 34.6
--- NOTE | 2024-06-06 11:16 | A.OFFPC_ITS ---
Vital Signs 06/06/24 11:16 Height 5 ft 2 in Weight 189 lb BMI 34.6 BP 126/66 Blood Pressure Location Lt brachial Position Sitting Pulse 79 Pulse Source Pulse Oximeter Pulse Oximetry (%) 97 Oxygen Delivery Method Room Air Intake Visit Reasons: Follow up Intake Note: Pt is here today for a follow up visit. Pt states that she has been having swelling in her lower legs and feet. Allergies No Known Allergies Allergy (Verified 06/06/24 11:20) Medication List - Last Reconciled 06/06/24 by Betty Arevalo MD amlodipine 10 mg PO DAILY atorvastatin 40 mg PO BEDTIME blood pressure monitor As directed to monitor blood pressure brimonidine 0.2% 1 drp ophthalmic (eye) BID cholecalciferol (vitamin D3) (Vitamin D3) 25 mcg PO DAILY elderberry fruit mg PO latanoprost 0.005% 1 drp ophthalmic (eye) BEDTIME miscellaneous medical supply Blood pressure cuff as directed QD; omega-3 fatty acids 1,000 mg PO DAILY Tobacco use date assessed: 06/06/24 Dental Screening Dental Screen Date: 06/06/24 Did you have a dental visit in the last 12 months?: Yes Did you have a dental problem in the last 6 months where you did not have access to dental care?: No Was dental information given to patient?: Patient has dentist HPI Follow up HPI Details Patient presents for the follow-up of hypertension. She reports increased lower extremities swelling since she increase the dose of amlodipine to 10 mg. She denies chest pain shortness of breath palpitations PND orthopnea. Patient's son reports patient's memory getting progressively worse and patient having difficulty with the balance, tripping and falling. She lives in [facility]. [facility] Medical History HTN (hypertension) Hyperlipidemia Left carotid bruit Head trauma Glaucoma Surgical History H/O left knee surgery H/O colonoscopy Family History Father No problems noted. Mother No problems noted. Social History Household Members: Children Household Members Other:: [facility] assisted [facility] Housing: House Are you a primary child day care provider to a significant other at home: No Alcohol intake: current Alcohol intake frequency: holidays/special occasions only Patient Tobacco Use Status: Never used Tobacco e-Cigarette/Vaping Use: Never Used Second Hand Smoke Exposure: No service: No Current occupational status: retired Cognitive needs: No Hearing needs: No Vision needs: Yes Questionnaire Thrive Questionnaire Date Thrive assessed: 03/28/24 I am a: Patient What is your living situation today?: I choose not to answer this question Within the past 12 months, did the food you bought not last and you didn't have the money to get more?: I choose not to answer this question Within the past 12 months, did you worry whether your food would run out before you got money to buy more?: I choose not to answer this question Do you have trouble paying for medicines?: I choose not to answer this question Do you have trouble getting transportation to medical appointments?: I choose not to answer this question Do you have trouble paying your heating and electricity bill?: I choose not to answer this question Do you have trouble taking care of your child, family member or friend?: I choose not to answer this question Do you have trouble with day-to-day activities such as bathing, preparing meals, shopping, managing finances, etc.?: I choose not to answer this question Are you interested in more education?: I choose not to answer this question Please select the resources that you would like help with: None Currently or been in a relationship where the following occur: I choose not to answer THRIVE Score: 0 RADHA-7 AMB Questionnaire RADHA-7 Date RADHA - 7 assessed: 03/28/24 Source: Developed by Drs. Jan Lebron, Rachel Azul, Gualberto Parada and colleagues, with an educational chava from [employer] Review of Systems Const All systems reviewed & are unremarkable except as noted in HPI and below Eyes Reports no additional complaints ENT Reports no additional complaints Card Reports no additional complaints Resp Reports no additional complaints GI Reports no additional complaints Reports no additional complaints Physical exam (Primary Care) Vital Signs: Last Vital Signs Pulse 79 06/06/24 11:16 BP 126/66 06/06/24 11:16 Pulse Ox 97 06/06/24 11:16 Oxygen Delivery Method Room Air 06/06/24 11:16 BMI result Body Mass Index 34.6 Tobacco/Smoking Status: Tobacco use Status Tobacco use date assessed 06/06/24 06/06/24 11:24 Patient Tobacco Use Status Never used Tobacco 06/06/24 11:16 e-Cigarette/Vaping Use Never Used 06/06/24 11:16 Thrive Assessment: Date of Thrive Assessment Date Thrive assessed 03/28/24 06/06/24 11:16 Currently or been in a relationship where the following occur: I choose not to answer Const General: no acute distress HENMT Head: Yes normal to inspection Throat: Yes posterior oropharynx normal Neck Neck: Yes supple Resp Effort & Inspection: normal respiratory effort Auscultation: clear to auscultation bilaterally Cardio Rhythm: regular rhythm Heart sounds: S1 normal heart sound present and S2 normal heart sound present Neuro Cranial nerves: Yes CN's II-XII intact bilaterally Gait exam (Neuro): Shuffling gait present Motor exam (neuro): 5/5 motor strength present throughout Coordination: [id number] test normal Extrem Other: 3+ pitting edema bilaterally Coding Level of Care Code Est Pt Level 4 (61146) Diagnoses HTN (hypertension) I10 Hyperlipidemia E78.5 Dementia F03.90 Edema R60.9 Poor balance R26.89 Assessment & Plan Assessment & Plan (1) HTN (hypertension): Code(s): I10 - Essential (primary) hypertension Category: Medical Plan: Change amlodipine 10 mg to amlodipine with olmesartan 5/20 mg. Follow-up in 1 month (2) Hyperlipidemia: Comment: Stop Lipitor per patient's son request Code(s): E78.5 - Hyperlipidemia, unspecified Category: Medical Plan: Continue low-cholesterol diet (3) Dementia: Code(s): F03.90 - Unspecified dementia, unspecified severity, without behavioral disturbance, psychotic disturbance, mood disturbance, and anxiety Category: Medical Plan: Check TSH B12 and D level, start donepezil 5 mg a day referred to neurologist (4) Edema: Code(s): R60.9 - Edema, unspecified Category: Medical Plan: Decrease amlodipine to 5 mg (5) Poor balance: Code(s): R26.89 - Other abnormalities of gait and mobility Category: Medical Plan: Patient will schedule physical therapy at [facility] Orders: Orders 2 Lipid Panel Today E78.5 - Hyperlipidemia, unspecified, F03.90 - Unspecified dementia, unspecified severity, without behavioral disturbance, psychotic disturbance, mood disturbance, and anxiety, I10 - Essential (primary) hypertension, R60.9 - Edema, unspecified B Type Natriuretic Peptide Today E78.5 - Hyperlipidemia, unspecified, F03.90 - Unspecified dementia, unspecified severity, without behavioral disturbance, psychotic disturbance, mood disturbance, and anxiety, I10 - Essential (primary) hypertension, R60.9 - Edema, unspecified TSH reflex Free T4 Today E78.5 - Hyperlipidemia, unspecified, F03.90 - Unspecified dementia, unspecified severity, without behavioral disturbance, psychotic disturbance, mood disturbance, and anxiety, I10 - Essential (primary) hypertension, R60.9 - Edema, unspecified Vitamin D 25-OH Total Today E78.5 - Hyperlipidemia, unspecified, F03.90 - Unspecified dementia, unspecified severity, without behavioral disturbance, psychotic disturbance, mood disturbance, and anxiety, I10 - Essential (primary) hypertension, R60.9 - Edema, unspecified Comprehensive [place]. Panel Fast Today E78.5 - Hyperlipidemia, unspecified, F03.90 - Unspecified dementia, unspecified severity, without behavioral disturbance, psychotic disturbance, mood disturbance, and anxiety, I10 - Essential (primary) hypertension, R60.9 - Edema, unspecified Complete Blood Count Auto Diff Today E78.5 - Hyperlipidemia, unspecified, F03.90 - Unspecified dementia, unspecified severity, without behavioral disturbance, psychotic disturbance, mood disturbance, and anxiety, I10 - Essential (primary) hypertension, R60.9 - Edema, unspecified Vitamin B12 and Folate Today E78.5 - Hyperlipidemia, unspecified, F03.90 - Unspecified dementia, unspecified severity, without behavioral disturbance, psychotic disturbance, mood disturbance, and anxiety, I10 - Essential (primary) hypertension, R60.9 - Edema, unspecified PT Evaluation and Treatment Today R26.89 - Other abnormalities of gait and mobility Referrals Neurology Referral E78.5 - Hyperlipidemia, unspecified, F03.90 - Unspecified dementia, unspecified severity, without behavioral disturbance, psychotic disturbance, mood disturbance, and anxiety, I10 - Essential (primary) hypertension, R60.9 - Edema, unspecified Medications: New amlodipine-olmesartan 5-20 mg 1 tab PO DAILY 90 tabs 0RF donepezil 5 mg PO BEDTIME 90 tabs 0RF Discontinued amlodipine Discontinued Reason: Doctor's Order 10 mg PO DAILY 90 tabs 1RF atorvastatin Discontinued Reason: Doctor's Order 40 mg PO BEDTIME 90 tabs 1RF
--- OUTSIDE RECORDS SUMMARY | 2024-06-12 01:48 | XMS_ITS | Clinical Summary ---
Author Organization Unknown Care Team Providers Care Asparagus Buncher Name Role Phone ALIYAH DAVIDSON, SHRUTHI Unavailable Unavailable TINO RN, FARIDEH Unavailable Unavailable ANNAMARIA PT, FATIMAH Unavailable Unavailable DAMIAN SHOE SPRAYER, FRANSISCA Unavailable Unavailable [place] OT, SALENA Unavailable Unavailable KATHERIN LÓPEZN, VADIM Unavailable Unavailable Payers Payer Name Policy Type Policy Number Effective Date Expira tion Date HUMANA.HI.PPO.C.AUTH [id number] Problems Condition Name Condition Details Condition Category Status Onset Date Resolution Date Last Treatment Date Treating Clinician Comments ESSENTIAL (PRIMARY) HYPERTENSION Active 03-20 00:00: 00 REPEATED FALLS Active 03-20 00:00: 00 CONTUSION OF LOWER BACK AND PELVIS, SUBSEQUENT ENCOUNTER Active 03-20 00:00: 00 HYPERLIPIDEM IA, UNSPECIFIED Active 03-20 00:00: 00 UNSPECIFIED GLAUCOMA Active 03-20 00:00: 00 HISTORY OF FALLING Active 03-20 00:00: 00 Allergies, Adverse Reactions, Alerts Allergy Name Allergy Type Status Severity Reaction(s) Onset Date Inactive Date Treating Clinician Comments SEASONAL AIRBORN ALLERGIES Propensity to adverse reactions Active 03-31 18:20: 00 Medications Ordered Medication Name Filled Medication Name Start Date Stop Date Current Medication? Ordering Clinician Indication Dosage Frequency Signature (SIG) Comments Components amlodipine 2.5 mg tablet 03-19 00:00: 00 04-10 23:59 :00 No [id number] HTN 1 tablet DAILY 1 tablet DAILY (route: oral) Med Classific ation: Cardiovas cular Therapy Agents brimonidine 0.2 % eye drops 03-28 00:00: 00 Yes [id number] GLAUCOMA 1 drops 2 TIMES DAILY 1 drops 2 TIMES DAILY (route: ophthalmic (eye)) Med Classific ation: Ophthalmi c Agents cholecalcif corina (vitamin D3) 25 mcg (1,000 unit) capsule 03-28 00:00: 00 Yes [id number] SUPPLEMENT 1 capsule DAILY 1 capsule DAILY (route: oral) Med Classific ation: Electroly te Balance-N utritiona l Products Elderberry Immune Health 45 mg-3.75 mg-50 mg chewable tablet 03-28 00:00: 00 Yes [id number] SUPPLEMENT 1 tablet DAILY 1 tablet DAILY (route: oral) Med Classific ation: Electroly te Balance-N utritiona l Products latanoprost 0.005 % eye drops 03-28 00:00: 00 Yes [id number] GLAUCOMA 1 drops BEDTIME 1 drops BEDTIME (route: ophthalmic (eye)) Med Classific ation: Ophthalmi c Agents omega 3-dha 100 mg-epa 400 mg-fish oil 1,000 mg capsule 03-28 00:00: 00 Yes [id number] SUPPLEMENT 1 capsule DAILY 1 capsule DAILY (route: oral) Med Classific ation: Cardiovas cular Therapy Agents amlodipine 5 mg tablet 2023-07 00:00: 00 Yes [id number] HIGH BLOOD PRESSURE 1 tablet DAILY 1 tablet DAILY (route: oral) Med Classific ation: Cardiovas cular Therapy Agents Vital Signs Vital Name Observation Time Observation Value Commen ts Temperature 2024-04-22 08:31:00.000 98.2 [degF] Temperature 2024-04-18 15:52:00.000 98.7 [degF] Temperature 2024-04-15 10:14:00.000 98 [degF] Temperature 2024-04-10 10:51:00.000 97.6 [degF] Temperature 2024-04-10 10:21:00.000 97.8 [degF] Temperature 2024-04-03 14:08:00.000 97 [degF] Temperature 2024-04-02 10:25:00.000 98 [degF] Temperature 2024-04-01 10:46:00.000 97.2 [degF] Temperature 2024-03-29 11:24:00.000 96.8 [degF] BMI (%) 2024-03-29 11:24:00.000 34 kg/m2 Height 2024-03-29 11:24:00.000 62 [in_us] Pulse 2024-04-22 08:31:00.000 72 /min Pulse 2024-04-18 15:52:00.000 80 /min Pulse 2024-04-15 10:14:00.000 68 /min Pulse 2024-04-10 10:51:00.000 65 /min Pulse 2024-04-10 10:21:00.000 68 /min Pulse 2024-04-03 14:08:00.000 77 /min Pulse 2024-04-02 10:25:00.000 89 /min Pulse 2024-04-01 10:46:00.000 76 /min Pulse 2024-03-29 11:24:00.000 74 /min O2 Saturation (%) 2024-04-22 08:32:00.000 96 % O2 Saturation (%) 2024-04-18 15:52:00.000 97 % O2 Saturation (%) 2024-04-10 10:51:00.000 96 % O2 Saturation (%) 2024-04-03 14:08:00.000 97 % O2 Saturation (%) 2024-04-02 10:25:00.000 96 % O2 Saturation (%) 2024-04-01 10:47:00.000 97 % O2 Saturation (%) 2024-03-29 11:24:00.000 96 % Respirations 2024-04-22 08:31:00.000 18 /min Respirations 2024-04-18 15:52:00.000 16 /min Respirations 2024-04-15 10:14:00.000 18 /min Respirations 2024-04-10 10:51:00.000 16 /min Respirations 2024-04-10 10:21:00.000 18 /min Respirations 2024-04-03 14:08:00.000 16 /min Respirations 2024-04-02 10:25:00.000 16 /min Respirations 2024-04-01 10:46:00.000 18 /min Respirations 2024-03-29 11:24:00.000 18 /min Weight (lbs) 2024-03-29 11:24:00.000 186 [lb_av] Systolic Blood Pressure 2024-04-22 08:31:00.000 168 mm [Hg] Systolic Blood Pressure 2024-04-18 15:52:00.000 170 mm [Hg] Systolic Blood Pressure 2024-04-15 10:14:00.000 176 mm [Hg] Systolic Blood Pressure 2024-04-10 10:51:00.000 166 mm [Hg] Systolic Blood Pressure 2024-04-10 10:21:00.000 180 mm [Hg] Systolic Blood Pressure 2024-04-03 14:08:00.000 150 mm [Hg] Systolic Blood Pressure 2024-04-02 10:25:00.000 140 mm [Hg] Systolic Blood Pressure 2024-04-01 10:46:00.000 118 mm [Hg] Systolic Blood Pressure 2024-03-29 11:24:00.000 122 mm [Hg] Diastolic Blood Pressure 2024-04-22 08:31:00.000 74 mm [Hg] Diastolic Blood Pressure 2024-04-18 15:52:00.000 80 mm [Hg] Diastolic Blood Pressure 2024-04-15 10:14:00.000 74 mm [Hg] Diastolic Blood Pressure 2024-04-10 10:51:00.000 66 mm [Hg] Diastolic Blood Pressure 2024-04-10 10:21:00.000 70 mm [Hg] Diastolic Blood Pressure 2024-04-03 14:08:00.000 80 mm [Hg] Diastolic Blood Pressure 2024-04-02 10:25:00.000 74 mm [Hg] Diastolic Blood Pressure 2024-04-01 10:46:00.000 78 mm [Hg] Diastolic Blood Pressure 2024-03-29 11:24:00.000 70 mm [Hg] Plan of Treatment Planned Activity Planned Date Details Comments Future Scheduled Test RN TO OBSE RVE, ASSESS, EVALUATE, AND DEVELOP AN INDIVIDUALIZED PLAN OF CARE. AGENCY MAY ACCEPT ORDERS FROM CONSULTING PHYSICIANS. REGISTERED NURSE TO OBSERVE AND ASSESS/LICENSED PRACTICAL NURSE TO OBSERVE FOR RISK FOR FALLS AND INSTRUCT IN FALL PREVENTION, HOME SAFETY, MEDICATION MANAGEMENT, INFECTION PREVENTION, AND NUTRITION MANAGEMENT. REGISTERED NURSE/LICENSED PRACTICAL NURSE MAY PERFORM O2 SATURATION LEVEL ON ADMISSION AND FOR RN TO ASSESS/ENGLISH AND READING INSTRUCTOR TO OBSERVE PATIENT, WITH NOTIFICATION TO THE PHYSICIAN IF SATURATION IS 90% IN THE ABSENCE OF MORE SPECIFIC PARAMETERS FROM THE PHYSICIAN. AGENCY MAY PERFORM A RESUMPTION OF CARE VISIT FOLLOWING ANY HOSPITAL ADMISSION. REGISTERED NURSE/LICENSED PRACTICAL NURSE TO MONITOR CO-MORBID CONDITIONS LISTED ON THE PLAN OF CARE AND ANY NEW CONDITIONS THAT PRESENT THEMSELVES DURING THIS EPISODE TO IDENTIFY CHANGES AND INTERVENE TO MINIMIZE COMPLICATIONS. [code = RN TO OBSERVE, ASSESS, EVALUATE, AND DEVELOP AN INDIVIDUALIZED PLAN OF CARE. AGENCY MAY ACCEPT ORDERS FROM CONSULTING PHYSICIANS. REGISTERED NURSE TO OBSERVE AND ASSESS/LICENSED PRACTICAL NURSE TO OBSERVE FOR RISK FOR FALLS AND INSTRUCT IN FALL PREVENTION, HOME SAFETY, MEDICATION MANAGEMENT, INFECTION PREVENTION, AND NUTRITION MANAGEMENT. REGISTERED NURSE/LICENSED PRACTICAL NURSE MAY PERFORM O2 SATURATION LEVEL ON ADMISSION AND FOR RN TO ASSESS/ENGLISH AND READING INSTRUCTOR TO OBSERVE PATIENT, WITH NOTIFICATION TO THE PHYSICIAN IF SATURATION IS 90% IN THE ABSENCE OF MORE SPECIFIC PARAMETERS FROM THE PHYSICIAN. AGENCY MAY PERFORM A RESUMPTION OF CARE VISIT FOLLOWING ANY HOSPITAL ADMISSION. REGISTERED NURSE/LICENSED PRACTICAL NURSE TO MONITOR CO-MORBID CONDITIONS LISTED ON THE PLAN OF CARE AND ANY NEW CONDITIONS THAT PRESENT THEMSELVES DURING THIS EPISODE TO IDENTIFY CHANGES AND INTERVENE TO MINIMIZE COMPLICATIONS.] Future Scheduled Test RISK FOR H OSPITALIZATION; REGISTERED NURSE TO ASSESS /TEACH, LICENSED PRACTICAL NURSE TO OBSERVE/TEACH PATIENT/CAREGIVER ON RISK FOR HOSPITALIZATION/EMERGENCY ROOM VISITS, TEACH SIGNS AND SYMPTOMS THAT PUT PATIENT AT RISK, WHEN TO NOTIFY NURSE/PHYSICIAN OF COMPLICATIONS/DECLINE, AND WHEN TO CALL 911. [code = RISK FOR HOSPITALIZATION; REGISTERED NURSE TO ASSESS /TEACH, LICENSED PRACTICAL NURSE TO OBSERVE/TEACH PATIENT/CAREGIVER ON RISK FOR HOSPITALIZATION/EMERGENCY ROOM VISITS, TEACH SIGNS AND SYMPTOMS THAT PUT PATIENT AT RISK, WHEN TO NOTIFY NURSE/PHYSICIAN OF COMPLICATIONS/DECLINE, AND WHEN TO CALL 911.] Future Scheduled Test MEDICATION MANAGEMENT; REGISTERED NURSE/LICENSED PRACTICAL NURSE TO REVIEW MEDICATIONS FOR INTERACTIONS, EFFECTIVENESS OF DRUG THERAPY, AND SIGNS/SYMPTOMS OF ADVERSE REACTIONS. MAY INSTRUCT AND REINFORCE MEDICATION TEACHING RELATED TO THE USE OF MEDICATIONS, DOSAGE, FREQUENCY, PURPOSE, SIDE EFFECTS, AND TO REPORT COMPLICATIONS. [code = MEDICATION MANAGEMENT; REGISTERED NURSE/LICENSED PRACTICAL NURSE TO REVIEW MEDICATIONS FOR INTERACTIONS, EFFECTIVENESS OF DRUG THERAPY, AND SIGNS/SYMPTOMS OF ADVERSE REACTIONS. MAY INSTRUCT AND REINFORCE MEDICATION TEACHING RELATED TO THE USE OF MEDICATIONS, DOSAGE, FREQUENCY, PURPOSE, SIDE EFFECTS, AND TO REPORT COMPLICATIONS.] Future Scheduled Test CARDIOVASC ULAR SYSTEM; REGISTERED NURSE TO ASSESS /TEACH, LICENSED PRACTICAL NURSE TO OBSERVE/TEACH RELATED TO ALTERED CARDIOVASCULAR STATUS TO MINIMIZE COMPLICATIONS AND REDUCE HOSPITALIZATION. [code = CARDIOVASCULAR SYSTEM; REGISTERED NURSE TO ASSESS /TEACH, LICENSED PRACTICAL NURSE TO OBSERVE/TEACH RELATED TO ALTERED CARDIOVASCULAR STATUS TO MINIMIZE COMPLICATIONS AND REDUCE HOSPITALIZATION.] Future Scheduled Test HYPERTENSI ON MANAGEMENT; REGISTERED NURSE TO ASSESS AND TEACH/LICENSED PRACTICAL NURSE TO OBSERVE AND TEACH WARNING SIGNS AND SYMPTOMS TO AVOID HOSPITALIZATION. [code = HYPERTENSION MANAGEMENT; REGISTERED NURSE TO ASSESS AND TEACH/LICENSED PRACTICAL NURSE TO OBSERVE AND TEACH WARNING SIGNS AND SYMPTOMS TO AVOID HOSPITALIZATION.] Future Scheduled Test PAIN MANAG EMENT; REGISTERED NURSE TO ASSESS AND TEACH/LICENSED PRACTICAL NURSE TO OBSERVE AND TEACH AND PROVIDE EDUCATION ON PAIN MANAGEMENT TECHNIQUES. [code = PAIN MANAGEMENT; REGISTERED NURSE TO ASSESS AND TEACH/LICENSED PRACTICAL NURSE TO OBSERVE AND TEACH AND PROVIDE EDUCATION ON PAIN MANAGEMENT TECHNIQUES.] Future Scheduled Test FALL REDUC TION MANAGEMENT; REGISTERED NURSE TO ASSESS AND TEACH/LICENSED PRACTICAL NURSE TO OBSERVE AND TEACH ON EDUCATION AND INTERVENTION TO IDENTIFY FALL RISK FACTORS SUCH MEDICATIONS THAT MAY CAUSE DIZZINESS, CHRONIC DISEASES, PSYCHOLOGICAL FACTORS, AND EMPOWER/EDUCATE PATIENT/CAREGIVER TO MINIMIZE FALL RISK. [code = FALL REDUCTION MANAGEMENT; REGISTERED NURSE TO ASSESS AND TEACH/LICENSED PRACTICAL NURSE TO OBSERVE AND TEACH ON EDUCATION AND INTERVENTION TO IDENTIFY FALL RISK FACTORS SUCH MEDICATIONS THAT MAY CAUSE DIZZINESS, CHRONIC DISEASES, PSYCHOLOGICAL FACTORS, AND EMPOWER/EDUCATE PATIENT/CAREGIVER TO MINIMIZE FALL RISK.] Future Scheduled Test PHYSICAL T HERAPIST TO EVALUATE FOR STRENGTH AND ENDURANCE TRAINING [code = PHYSICAL THERAPIST TO EVALUATE FOR STRENGTH AND ENDURANCE TRAINING ] Future Scheduled Test OCCUPATION AL THERAPIST TO EVALUATE FOR BATHING, DRESSING AND GROOMING STRATEGIES [code = OCCUPATIONAL THERAPIST TO EVALUATE FOR BATHING, DRESSING AND GROOMING STRATEGIES ] Future Scheduled Test AGENCY MAY PERFORM A RESUMPTION OF CARE VISIT FOLLOWING ANY HOSPITAL ADMISSION. PT TO EVALUATE, OBSERVE / ASSESS, AND MONITOR, SHOE SPRAYER TO OBSERVE AND MONITOR, PROVIDE SKILLED THERAPEUTIC INTERVENTION, ACTIVITY, EDUCATION, AND TRAINING TO ADDRESS; PT/SHOE SPRAYER TO PROVIDE GAIT TRAINING FOR IMPROVED MOBILITY AND /OR TO NORMALIZE GAIT PATTERN NEUROMUSCULAR RE-EDUCATION / BALANCE / POSTURAL CONTROL (PT) BED TRANSFERS (PT/SHOE SPRAYER) SIT TO/FROM STAND TRANSFERS (PT/SHOE SPRAYER) PT / SHOE SPRAYER TO MONITOR AND EDUCATE ON OXYGEN SATURATION DURING ADLS/IADLS, NOTIFY PHYSICIAN AND/OR THE RN CLINICAL EXTENSION SERVICE SPECIALIST IN CHARGE FOR PHYSICIAN NOTIFICATION AND IF O2 SATS BELOW PHYSICIAN ORDERED PARAMETERS AFTER 10 MIN OF REST PT/SHOE SPRAYER TO IDENTIFY FALL RISK FACTORS; EDUCATE THE PATIENT/CAREGIVER ON WAYS TO REDUCE FALL RISK FACTORS AND ESTABLISH HOME EXERCISE PROGRAM TO MINIMIZE FALL RISK. MAY TEACH THE PATIENT FLOOR RECOVERY WHEN CLINICALLY APPROPRIATE PT / SHOE SPRAYER MAY EDUCATE ON PAIN MANAGEMENT CLINICALLY INDICATED, INCLUDING NON-PHARMACOLOGICAL PAIN REDUCTION TECHNIQUES. [code = AGENCY MAY PERFORM A RESUMPTION OF CARE VISIT FOLLOWING ANY HOSPITAL ADMISSION. PT TO EVALUATE, OBSERVE / ASSESS, AND MONITOR, SHOE SPRAYER TO OBSERVE AND MONITOR, PROVIDE SKILLED THERAPEUTIC INTERVENTION, ACTIVITY, EDUCATION, AND TRAINING TO ADDRESS; PT/SHOE SPRAYER TO PROVIDE GAIT TRAINING FOR IMPROVED MOBILITY AND /OR TO NORMALIZE GAIT PATTERN NEUROMUSCULAR RE-EDUCATION / BALANCE / POSTURAL CONTROL (PT) BED TRANSFERS (PT/SHOE SPRAYER) SIT TO/FROM STAND TRANSFERS (PT/SHOE SPRAYER) PT / SHOE SPRAYER TO MONITOR AND EDUCATE ON OXYGEN SATURATION DURING ADLS/IADLS, NOTIFY PHYSICIAN AND/OR THE RN CLINICAL EXTENSION SERVICE SPECIALIST IN CHARGE FOR PHYSICIAN NOTIFICATION AND IF O2 SATS BELOW PHYSICIAN ORDERED PARAMETERS AFTER 10 MIN OF REST PT/SHOE SPRAYER TO IDENTIFY FALL RISK FACTORS; EDUCATE THE PATIENT/CAREGIVER ON WAYS TO REDUCE FALL RISK FACTORS AND ESTABLISH HOME EXERCISE PROGRAM TO MINIMIZE FALL RISK. MAY TEACH THE PATIENT FLOOR RECOVERY WHEN CLINICALLY APPROPRIATE PT / SHOE SPRAYER MAY EDUCATE ON PAIN MANAGEMENT CLINICALLY INDICATED, INCLUDING NON-PHARMACOLOGICAL PAIN REDUCTION TECHNIQUES. ] Future Scheduled Test OCCUPATION AL THERAPY EVALUATION PERFORMED. NO ADDITIONAL VISITS REQUIRED. PROVIDED SKILLED INTERVENTION INCLUDING ORGANIZATION OF BEDROOM AND CLEANING OUT WHAT SHE DOES NOT NEED FOR FALL PREVENTION. BEDROOM IS VERY SMALL. [code = OCCUPATIONAL THERAPY EVALUATION PERFORMED. NO ADDITIONAL VISITS REQUIRED. PROVIDED SKILLED INTERVENTION INCLUDING ORGANIZATION OF BEDROOM AND CLEANING OUT WHAT SHE DOES NOT NEED FOR FALL PREVENTION. BEDROOM IS VERY SMALL. ] Goal 2024-04-22 Patient Goal - NO MORE FALLS Goal Provider Goal - A PLAN OF CARE WILL BE ESTABLISHED THAT MEETS THE PATIENTS NEEDS. PATIENT WILL DEMONSTRATE OXYGEN SATURATION WITHIN NORMAL LIMITS OR PATIENTS OPTIMAL LEVEL ESTABLISHED BY THE PHYSICIAN THROUGHOUT CARE. CHANGES TO CO-MORBID CONDITIONS AND ANY NEW CONDITIONS WILL BE IDENTIFIED AND REPORTED TO THE PHYSICIAN. Goal Provider Goal - PATIENT/CAREGIVER WILL VERBALIZE UNDERSTANDING OF SIGNS AND SYMPTOMS THAT PUT THE PATIENT AT RISK FOR HOSPITALIZATION /EMERGENCY ROOM VISITS, WHEN TO NOTIFY NURSE/PHYSICIAN OF COMPLICATIONS/DECLINE AND WHEN TO CALL 911. Goal Provider Goal - PATIENT/CAREGIVER TO VERBALIZE, AND CONSISTENTLY DEMONSTRATE EFFECTIVE, SAFE MANAGEMENT OF MEDICATION INCLUDING KNOWLEDGE OF EFFECTIVENESS, POTENTIAL SIDE EFFECTS AND DRUG REACTIONS AND WHEN TO CONTACT THE APPROPRIATE CARE PROVIDER. PATIENT/CAREGIVER WILL BE ABLE TO VERBALIZE UNDERSTANDING OF MEDICATION REGIMEN AND ACCURATELY TAKE MEDICATIONS PRESCRIBED WITHOUT ADVERSE EFFECTS BY 05/27/24. Goal Provider Goal - PATIENT / CAREGIVER WILL VERBALIZE/DEMONSTRATE UNDERSTANDING OF MEASURES TO MANAGE ALTERED CARDIOVASCULAR STATUS BY 05/27/24. Goal Provider Goal - PATIENT / CAREGIVER WILL VERBALIZE/DEMONSTRATE AN ABILITY TO ADHERE TO SELF-MANAGEMENT OF HTN TO MINIMIZE COMPLICATIONS AND AVOID HOSPITALIZATION BY END OF EPISODE. Goal Provider Goal - PATIENT / CAREGIVER WILL VERBALIZE / DEMONSTRATE UNDERSTANDING OF PAIN CONTROL MEASURES BY 05/27/24. Goal Provider Goal - PATIENT/CAREGIVER ABLE TO IDENTIFY FALL RISK FACTORS AND IMPLEMENT STRATEGIES TO MINIMIZE FALL RISK. PATIENT/CAREGIVER WILL VERBALIZE/DEMONSTRATE AN ABILITY TO ADHERE TO FALL REDUCTION SELF MANAGEMENT AND LIFE-STYLE CHANGES AT DISCHARGE. PERSONAL GOAL(S) STATED BY PATIENT/CAREGIVER WILL BE MET BY 05/27/24. Goal Provider Goal - PATIENT WILL IMPROVE HOUSEHOLD AMBULATION FROM CGA TO INDEPENDENT IN 8 WEEKS WITH SPC TO PROMOTE IMPROVED MOBILITY THROUGHOUT JENNIFER PATIENT WILL IMPROVE TUG SCORE 24 TO 18 SECONDS AND FIVE TIMES SIT TO STAND FROM 28 TO 18 SECONDS IN 8 WEEKS TO PROMOTE IMPROVED BALANCE INPUT INTEGRATION PATIENT WILL DEMO INDEP PERFORMANCE OF HOUSEHOLD TRANSFERS WITHOUT AD USE IN 4 WEEKS TO PROMOTE IMPROVED FUNCTIONAL MOBILITY PT LTG: PATIENT WILL MAINTAIN OXYGEN SATURATION WITHIN PHYSICIAN ORDERED PARAMETERS THROUGHOUT EPISODE OF CARE. PT LTG: PATIENT/CAREGIVER WILL DEMONSTRATE ADHERENCE TO FALL REDUCTION SELF-MANAGEMENT AND REDUCING FALL RISK FACTORS TO MINIMIZE FALL RISK BY END OF EPISODE PT LTG: PATIENT WILL BE INDEPENDENT WITH IMPLEMENTATION OF HEP WITHIN 4 WEEKS PT LTG: CAREGIVER WILL BE INDEPENDENT ASSISTING PATIENT TO COMPLETE HEP WITHIN 4 WEEKS PT GOAL: PATIENT WILL DEMONSTRATE UNDERSTANDING OF PAIN MANAGEMENT TECHNIQUES BY END OF EPISODE. Goal Provider Goal - PATIENT / CAREGIVER WITHIN 1 VISIT WILL BE ABLE TO VERBALIZE / DEMONSTRATE UNDERSTANDING OF CLEAN UP OF BEDROOM AND REMOVAL OF ITEMS SHE DOES NOT NEED TO PREVENT FURTHER FALLS AND INJURIES. Reason for Visit PATIENT IN FACILITY AT END OF EPISODE Encounters Start Date/Time End Date/Time Encounter Type Admission Type Attending Clinicians Care Facility Care Department Encounter ID Discharge Date Discharge Status Discharge Condition Discharge Reason Percent Goals Met 2024-03-29 00:00:00 2024-04-22 00:00:00 Outpatient NEW ADMISSION EKATERINA JIMÉNEZTHIA [facility] [id number] 2024-04-22 00:00:00 DISCHARGED /TRANSFERR ED TO A HALFWAY FACILITY (SNF) WITH MEDICARE CERTIFICAT ION IN ANTICIPATI ON OF SKILLED CARE PATIENT IN FACILITY AT END OF EPISODE HH ONLY - TRANSFER TO HOSPITAL 34.62
== END 2024-06-06 12:06 | disposition home or self-care (01) ==
PROVIDERS: PCP Internal Medicine; Visit Provider Internal Medicine
DX: I10 Essential (primary) hypertension (principal); E78.5 Hyperlipidemia, unspecified; F03.90 Unspecified dementia, unspecified severity, without behavioral disturbance, psychotic disturbance, mood disturbance, and anxiety; R60.9 Edema, unspecified; R26.89 Other abnormalities of gait and mobility

== ENCOUNTER → 2024-06-06 10:59 | Outpatient (BNVA) | payer MEDICARE, SELFPAY | PROVIDERS: PCP Internal Medicine; Visit Provider Internal Medicine | DX: I10 Essential (primary) hypertension (principal); E78.5 Hyperlipidemia, unspecified; F03.90 Unspecified dementia, unspecified severity, without behavioral disturbance, psychotic disturbance, mood disturbance, and anxiety; R60.9 Edema, unspecified; R26.89 Other abnormalities of gait and mobility | CPT/HCPCS: 99212 ==

== ENCOUNTER 2024-06-07 09:32 | Outpatient (REF) | payer MEDICARE, SELFPAY ==
[2024-06-07 12:57] LABS: MANUAL DIFF FLAG NO
[2024-06-07 13:05] LABS: Basophils Absolute Auto 0.1 X10*3/uL (0.0-0.2); Basophils Percent Auto 0.9 % (0-2); Eosinophils Absolute Auto 0.2 X10*3/uL (0.0-0.4); Eosinophils Percent Auto 2.1 % (0-4); Hemoglobin 13.7 g/dl (12.0-16.0); Imm Gran Abs Auto 0.05 X10*3/uL (0.00-0.03); Imm Gran Pct Auto 0.6 % (0.0-0.4); Lymphocytes Absolute Auto 2.2 X10*3/uL (1.2-4.9); Lymphocytes Percent Auto 24.9 % (20-40); Mean Corpuscular HGB Conc 34.3 g/dl (31.0-35.0); Mean Corpuscular Hemoglobin 31.4 pg (27.0-33.0); Mean Corpuscular Volume 91.7 fL (80.0-98.0); Mean Platelet Volume 11.1 fL (9.4-12.3); Monocytes Absolute Auto 0.7 X10*3/uL (0.1-1.2); Monocytes Percent Auto 7.4 % (2-11); Neutrophils Absolute Auto 5.7 x10*3/uL (2.0-8.3); Neutrophils Percent Auto 64.1 % (45-73); Platelet Count 304 X10*3/uL (160-400); Red Blood Count 4.36 X10*6/uL (4.20-5.50); Red Cell Distribution Width 12.4 % (11.0-16.0); White Blood Count 8.9 X10*3/uL (4.8-10.8)
[2024-06-07 13:17] LABS: B Type Natriuretic Peptide 69 pg/mL (<100)
[2024-06-07 13:23] LABS: Alanine Aminotransferase 28 U/L (0-31); Albumin Level 4.3 g/dL (3.5-5.0); Alkaline Phosphatase 82 U/L (39-117); Anion Gap 12 (12-20); Aspartate Amino Transferase 38 U/L (5-31); Bilirubin Total 0.9 mg/dL (0.0-1.0); Blood Urea Nitrogen 17 mg/dL (9-16); Calcium 9.9 mg/dL (8.4-10.2); Carbon Dioxide 30 mmol/L (22-29); Chloride 106 mmol/L (96-108); Cholesterol 136 mg/dL (<200); Estimated Glomerular Filt Rate 58; Glucose Fasting 99 mg/dL (60-99); HDL Cholesterol 65 mg/dL (>40); LDL Cholesterol Calculated 54 mg/dL (<100); Potassium 3.7 mmol/L (3.3-5.1); Sodium 144 mmol/L (135-145); Total Protein 7.3 g/dL (6.5-8.0); Triglycerides 89 mg/dL (<150)
[2024-06-07 13:41] LABS: TSH reflex Free T4 2.61 uIU/mL (0.32-4.0); Vitamin D 25-OH Total 90.8 ng/mL (>30)
[2024-06-07 13:48] LABS: Vitamin B12 408 pg/mL (200-900)
--- OUTSIDE RECORDS SUMMARY | 2024-06-12 07:02 | XMS_ITS | Clinical Summary ---
Author Organization Unknown Care Team Providers Care Intramural Director Name Role Phone ALIYAH DAVIDSON, SHRUTHI Unavailable Unavailable TINO RN, FARIDEH Unavailable Unavailable ANNAMARIA PT, FATIMAH Unavailable Unavailable DAMIAN LAW FIRM CONSULTANT, FRANSISCA Unavailable Unavailable [place] OT, [place] Unavailable Unavailable KATHERIN LÓPEZN, VADIM Unavailable Unavailable Payers Payer Name Policy Type Policy Number Effective Date Expira tion Date HUMA[employer].AL.PPO.C.AUTH [id number] Problems Condition Name Condition Details Condition Category [...] 03-19 00:00: 00 04-10 23:59 :00 No [id number] HTN 1 tablet DAILY 1 tablet DAILY (route: oral) Med Classific ation: Cardiovas cular Therapy Agents brimonidine 0.2 % eye drops 03-28 00:00: 00 Yes [id number] GLAUCOMA 1 drops 2 TIMES DAILY 1 drops 2 TIMES DAILY (route: ophthalmic (eye)) Med Classific ation: Ophthalmi c Agents cholecalcif corina (vitamin D3) 25 mcg (1,000 unit) capsule 03-28 00:00: 00 Yes [id number] SUPPLEMENT 1 capsule DAILY 1 capsule DAILY (route: oral) Med Classific ation: Electroly te Balance-N utritiona l Products Elderberry Immune Health 45 mg-3.75 mg-50 mg chewable tablet 03-28 00:00: 00 Yes [id number] SUPPLEMENT 1 tablet DAILY 1 tablet DAILY (route: oral) Med Classific ation: Electroly te Balance-N utritiona l Products latanoprost 0.005 % eye drops 03-28 00:00: 00 Yes [id number] GLAUCOMA 1 drops BEDTIME 1 drops BEDTIME (route: ophthalmic (eye)) Med Classific ation: Ophthalmi c Agents omega 3-dha 100 mg-epa 400 mg-fish oil 1,000 mg capsule 03-28 00:00: 00 Yes [id number] SUPPLEMENT 1 capsule DAILY 1 capsule DAILY (route: oral) Med Classific ation: Cardiovas cular Therapy Agents amlodipine 5 mg tablet 2023-07 00:00: 00 Yes [id number] HIGH BLOOD PRESSURE 1 tablet DAILY 1 [...] LEVEL ON ADMISSION AND FOR RN TO ASSESS/SYSTEMS ENGINEER TO OBSERVE PATIENT, WITH NOTIFICATION TO THE [...] LEVEL ON ADMISSION AND FOR RN TO ASSESS/SYSTEMS ENGINEER TO OBSERVE PATIENT, WITH NOTIFICATION TO THE [...] TO EVALUATE, OBSERVE / ASSESS, AND MONITOR, LAW FIRM CONSULTANT TO OBSERVE AND MONITOR, PROVIDE SKILLED THERAPEUTIC INTERVENTION, ACTIVITY, EDUCATION, AND TRAINING TO ADDRESS; PT/LAW FIRM CONSULTANT TO PROVIDE GAIT TRAINING FOR IMPROVED MOBILITY AND /OR TO NORMALIZE GAIT PATTERN NEUROMUSCULAR RE-EDUCATION / BALANCE / POSTURAL CONTROL (PT) BED TRANSFERS (PT/LAW FIRM CONSULTANT) SIT TO/FROM STAND TRANSFERS (PT/LAW FIRM CONSULTANT) PT / LAW FIRM CONSULTANT TO MONITOR AND EDUCATE ON OXYGEN SATURATION DURING ADLS/IADLS, NOTIFY PHYSICIAN AND/OR THE RN CLINICAL PRINTED CIRCUIT BOARD DESIGNER FOR PHYSICIAN NOTIFICATION AND IF O2 SATS BELOW PHYSICIAN ORDERED PARAMETERS AFTER 10 MIN OF REST PT/LAW FIRM CONSULTANT TO IDENTIFY FALL RISK FACTORS; EDUCATE THE PATIENT/CAREGIVER ON WAYS TO REDUCE FALL RISK FACTORS AND ESTABLISH HOME EXERCISE PROGRAM TO MINIMIZE FALL RISK. MAY TEACH THE PATIENT FLOOR RECOVERY WHEN CLINICALLY APPROPRIATE PT / LAW FIRM CONSULTANT MAY EDUCATE ON PAIN MANAGEMENT CLINICALLY INDICATED, INCLUDING NON-PHARMACOLOGICAL PAIN REDUCTION TECHNIQUES. [code = AGENCY MAY PERFORM A RESUMPTION OF CARE VISIT FOLLOWING ANY HOSPITAL ADMISSION. PT TO EVALUATE, OBSERVE / ASSESS, AND MONITOR, LAW FIRM CONSULTANT TO OBSERVE AND MONITOR, PROVIDE SKILLED THERAPEUTIC INTERVENTION, ACTIVITY, EDUCATION, AND TRAINING TO ADDRESS; PT/LAW FIRM CONSULTANT TO PROVIDE GAIT TRAINING FOR IMPROVED MOBILITY AND /OR TO NORMALIZE GAIT PATTERN NEUROMUSCULAR RE-EDUCATION / BALANCE / POSTURAL CONTROL (PT) BED TRANSFERS (PT/LAW FIRM CONSULTANT) SIT TO/FROM STAND TRANSFERS (PT/LAW FIRM CONSULTANT) PT / LAW FIRM CONSULTANT TO MONITOR AND EDUCATE ON OXYGEN SATURATION DURING ADLS/IADLS, NOTIFY PHYSICIAN AND/OR THE RN CLINICAL PRINTED CIRCUIT BOARD DESIGNER FOR PHYSICIAN NOTIFICATION AND IF O2 SATS BELOW PHYSICIAN ORDERED PARAMETERS AFTER 10 MIN OF REST PT/LAW FIRM CONSULTANT TO IDENTIFY FALL RISK FACTORS; EDUCATE THE PATIENT/CAREGIVER ON WAYS TO REDUCE FALL RISK FACTORS AND ESTABLISH HOME EXERCISE PROGRAM TO MINIMIZE FALL RISK. MAY TEACH THE PATIENT FLOOR RECOVERY WHEN CLINICALLY APPROPRIATE PT / LAW FIRM CONSULTANT MAY EDUCATE ON PAIN MANAGEMENT CLINICALLY INDICATED, [...] 2024-04-22 00:00:00 Outpatient NEW ADMISSION EKATERINA JIMÉNEZTHIA [facility] [id number] 2024-04-22 00:00:00 DISCHARGED /TRANSFERR ED TO A SENIOR LIVING FACILITY (SNF) WITH MEDICARE CERTIFICAT ION IN ANTICIPATI ON OF SKILLED CARE PATIENT IN FACILITY AT END OF EPISODE HH ONLY - TRANSFER TO HOSPITAL 34.62
--- OUTSIDE RECORDS SUMMARY | 2024-06-12 07:02 | XMS_ITS | Clinical Summary ---
Author Organization Unknown Care Team Providers Care Film Technician Name Role Phone ALIYAH DAVIDSON, SHRUTHI Unavailable Unavailable TINO RN, FARIDEH Unavailable Unavailable ANNAMARIA PT, FATIMAH Unavailable Unavailable DAMIAN GUEST EXPERIENCE REPRESENTATIVE, FRANSISCA Unavailable Unavailable [place] OT, [place] Unavailable Unavailable KATHERIN LÓPEZN, VADIM Unavailable Unavailable Payers Payer Name Policy Type Policy Number Effective Date Expira tion Date [employer]MANA.[place].PPO.[place].AUTH [id number] Problems Condition Name Condition Details Condition Category [...] 03-19 00:00: 00 04-10 23:59 :00 No [id number] HTN 1 tablet DAILY 1 tablet DAILY (route: oral) Med Classific ation: Cardiovas cular Therapy Agents brimonidine 0.2 % eye drops 03-28 00:00: 00 Yes [id number] GLAUCOMA 1 drops 2 TIMES DAILY 1 drops 2 TIMES DAILY (route: ophthalmic (eye)) Med Classific ation: Ophthalmi c Agents cholecalcif corina (vitamin D3) 25 mcg (1,000 unit) capsule 03-28 00:00: 00 Yes [id number] SUPPLEMENT 1 capsule DAILY 1 capsule DAILY (route: oral) Med Classific ation: Electroly te Balance-N utritiona l Products Elderberry Immune Health 45 mg-3.75 mg-50 mg chewable tablet 03-28 00:00: 00 Yes [id number] SUPPLEMENT 1 tablet DAILY 1 tablet DAILY (route: oral) Med Classific ation: Electroly te Balance-N utritiona l Products latanoprost 0.005 % eye drops 03-28 00:00: 00 Yes [id number] GLAUCOMA 1 drops BEDTIME 1 drops BEDTIME (route: ophthalmic (eye)) Med Classific ation: Ophthalmi c Agents omega 3-dha 100 mg-epa 400 mg-fish oil 1,000 mg capsule 03-28 00:00: 00 Yes [id number] SUPPLEMENT 1 capsule DAILY 1 capsule DAILY (route: oral) Med Classific ation: Cardiovas cular Therapy Agents amlodipine 5 mg tablet 2023-07 00:00: 00 Yes [id number] HIGH BLOOD PRESSURE 1 tablet DAILY 1 [...] LEVEL ON ADMISSION AND FOR RN TO ASSESS/RESEARCH NURSE PRACTITIONER TO OBSERVE PATIENT, WITH NOTIFICATION TO THE [...] LEVEL ON ADMISSION AND FOR RN TO ASSESS/RESEARCH NURSE PRACTITIONER TO OBSERVE PATIENT, WITH NOTIFICATION TO THE [...] TO EVALUATE, OBSERVE / ASSESS, AND MONITOR, GUEST EXPERIENCE REPRESENTATIVE TO OBSERVE AND MONITOR, PROVIDE SKILLED THERAPEUTIC INTERVENTION, ACTIVITY, EDUCATION, AND TRAINING TO ADDRESS; PT/GUEST EXPERIENCE REPRESENTATIVE TO PROVIDE GAIT TRAINING FOR IMPROVED MOBILITY AND /OR TO NORMALIZE GAIT PATTERN NEUROMUSCULAR RE-EDUCATION / BALANCE / POSTURAL CONTROL (PT) BED TRANSFERS (PT/GUEST EXPERIENCE REPRESENTATIVE) SIT TO/FROM STAND TRANSFERS (PT/GUEST EXPERIENCE REPRESENTATIVE) PT / GUEST EXPERIENCE REPRESENTATIVE TO MONITOR AND EDUCATE ON OXYGEN SATURATION DURING ADLS/IADLS, NOTIFY PHYSICIAN AND/OR THE RN CLINICAL DOCUMENTATION MANAGER FOR PHYSICIAN NOTIFICATION AND IF O2 SATS BELOW PHYSICIAN ORDERED PARAMETERS AFTER 10 MIN OF REST PT/GUEST EXPERIENCE REPRESENTATIVE TO IDENTIFY FALL RISK FACTORS; EDUCATE THE PATIENT/CAREGIVER ON WAYS TO REDUCE FALL RISK FACTORS AND ESTABLISH HOME EXERCISE PROGRAM TO MINIMIZE FALL RISK. MAY TEACH THE PATIENT FLOOR RECOVERY WHEN CLINICALLY APPROPRIATE PT / GUEST EXPERIENCE REPRESENTATIVE MAY EDUCATE ON PAIN MANAGEMENT CLINICALLY INDICATED, INCLUDING NON-PHARMACOLOGICAL PAIN REDUCTION TECHNIQUES. [code = AGENCY MAY PERFORM A RESUMPTION OF CARE VISIT FOLLOWING ANY HOSPITAL ADMISSION. PT TO EVALUATE, OBSERVE / ASSESS, AND MONITOR, GUEST EXPERIENCE REPRESENTATIVE TO OBSERVE AND MONITOR, PROVIDE SKILLED THERAPEUTIC INTERVENTION, ACTIVITY, EDUCATION, AND TRAINING TO ADDRESS; PT/GUEST EXPERIENCE REPRESENTATIVE TO PROVIDE GAIT TRAINING FOR IMPROVED MOBILITY AND /OR TO NORMALIZE GAIT PATTERN NEUROMUSCULAR RE-EDUCATION / BALANCE / POSTURAL CONTROL (PT) BED TRANSFERS (PT/GUEST EXPERIENCE REPRESENTATIVE) SIT TO/FROM STAND TRANSFERS (PT/GUEST EXPERIENCE REPRESENTATIVE) PT / GUEST EXPERIENCE REPRESENTATIVE TO MONITOR AND EDUCATE ON OXYGEN SATURATION DURING ADLS/IADLS, NOTIFY PHYSICIAN AND/OR THE RN CLINICAL DOCUMENTATION MANAGER FOR PHYSICIAN NOTIFICATION AND IF O2 SATS BELOW PHYSICIAN ORDERED PARAMETERS AFTER 10 MIN OF REST PT/GUEST EXPERIENCE REPRESENTATIVE TO IDENTIFY FALL RISK FACTORS; EDUCATE THE PATIENT/CAREGIVER ON WAYS TO REDUCE FALL RISK FACTORS AND ESTABLISH HOME EXERCISE PROGRAM TO MINIMIZE FALL RISK. MAY TEACH THE PATIENT FLOOR RECOVERY WHEN CLINICALLY APPROPRIATE PT / GUEST EXPERIENCE REPRESENTATIVE MAY EDUCATE ON PAIN MANAGEMENT CLINICALLY INDICATED, [...] 2024-04-22 00:00:00 Outpatient NEW ADMISSION EKATERINA JIMÉNEZTHIA [facility] [id number] 2024-04-22 00:00:00 DISCHARGED /TRANSFERR ED TO A [facility] FACILITY (SNF) WITH MEDICARE CERTIFICAT ION IN ANTICIPATI ON OF SKILLED CARE PATIENT IN FACILITY AT END OF EPISODE HH ONLY - TRANSFER TO HOSPITAL 34.62
== END 2024-06-07 09:33 | disposition home or self-care (01) ==
LOC: HO.HMGCLDS 09:32
PROVIDERS: PCP Internal Medicine; Visit Provider Internal Medicine
DX: I10 Essential (primary) hypertension (principal); E78.5 Hyperlipidemia, unspecified; F03.90 Unspecified dementia, unspecified severity, without behavioral disturbance, psychotic disturbance, mood disturbance, and anxiety; R60.9 Edema, unspecified
CPT/HCPCS: 36415; 80053; 80061; 82306; 82607; 82746; 83880; 84443; 85025

== ENCOUNTER 2024-06-20 11:05 | Outpatient (AMB) | payer MEDICARE, SELFPAY ==
--- NOTE | 2024-06-20 11:07 | A.OFFPC_ITS ---
Vital Signs 06/20/24 11:08 Height 5 ft 2 in Weight 192 lb BMI 35.1 BP 110/56 L Blood Pressure Location Rt brachial Position Sitting Pulse 69 Pulse Source Pulse Oximeter Pulse Oximetry (%) 95 Oxygen Delivery Method Room Air Intake Visit Reasons: [facility]-fall, med change Intake Note: Pt is here today for hospital follow up visit. Pt states that she was on Furosemide 20 mg daily. Pt states that her legs are still swollen. Allergies No Known Allergies Allergy (Verified 06/20/24 11:13) Medication List - Last Reconciled 06/20/24 by Betty Arevalo MD amlodipine-olmesartan 5-20 mg 1 tab PO DAILY blood pressure monitor As directed to monitor blood pressure brimonidine 0.2% 1 drp ophthalmic (eye) BID cholecalciferol (vitamin D3) (Vitamin D3) 25 mcg PO DAILY donepezil 5 mg PO BEDTIME elderberry fruit mg PO Lasix (furosemide) 20 mg PO Q OTHER DAY NS latanoprost 0.005% 1 drp ophthalmic (eye) BEDTIME miscellaneous medical supply Blood pressure cuff as directed QD; omega-3 fatty acids 1,000 mg PO DAILY Tobacco use date assessed: 06/06/24 Dental Screening Dental Screen Date: 06/06/24 HPI [facility] [place] ER-[facility], med change HPI Details Patient presents for the follow-up of ER visit for trip and fall while last week. Patient denies any serious injuries. She complains of lower extremity swelling was started on furosemide with some relief. Hypertension has been controlled on current medications. [facility] Medical History HTN (hypertension) Hyperlipidemia Left carotid bruit Head trauma Glaucoma Surgical History H/O left knee surgery H/O colonoscopy Family History Father No problems noted. Mother No problems noted. Social History Household Members: Children Household Members Other:: [facility] - assisted [facility] Housing: House Are you a primary ocular care technician to a significant other at home: No Alcohol intake: current Alcohol intake frequency: holidays/special occasions only Patient Tobacco Use Status: Never used Tobacco e-Cigarette/Vaping Use: Never Used Second Hand Smoke Exposure: No service: No Current occupational status: retired Cognitive needs: No Hearing needs: No Vision needs: Yes Questionnaire Thrive Questionnaire Date Thrive assessed: 03/28/24 I am a: Patient What is your living situation today?: I choose not to answer this question Within the past 12 months, did the food you bought not last and you didn't have the money to get more?: I choose not to answer this question Within the past 12 months, did you worry whether your food would run out before you got money to buy more?: I choose not to answer this question Do you have trouble paying for medicines?: I choose not to answer this question Do you have trouble getting transportation to medical appointments?: I choose not to answer this question Do you have trouble paying your heating and electricity bill?: I choose not to answer this question Do you have trouble taking care of your child, family member or friend?: I choose not to answer this question Do you have trouble with day-to-day activities such as bathing, preparing meals, shopping, managing finances, etc.?: I choose not to answer this question Are you interested in more education?: I choose not to answer this question Please select the resources that you would like help with: None Currently or been in a relationship where the following occur: I choose not to answer THRIVE Score: 0 RADHA-7 AMB Questionnaire RADHA-7 Date RADHA - 7 assessed: 03/28/24 Source: Developed by Drs. Jan Lebron, Rachel Azul, Gualberto Parada and colleagues, with an educational chava from [employer]. Review of Systems Const All systems reviewed & are unremarkable except as noted in HPI and below Eyes Reports no additional complaints Card Reports no additional complaints Resp Reports no additional complaints GI Reports no additional complaints Physical exam (Primary Care) Vital Signs: Last Vital Signs Pulse 69 06/20/24 11:08 BP 110/56 L 06/20/24 11:08 Pulse Ox 95 06/20/24 11:08 Oxygen Delivery Method Room Air 06/20/24 11:08 BMI result Body Mass Index 35.1 Tobacco/Smoking Status: Tobacco use Status Tobacco use date assessed 06/06/24 06/20/24 11:11 Patient Tobacco Use Status Never used Tobacco 12/19/24 11:11 e-Cigarette/Vaping Use Never Used 06/20/24 11:11 Thrive Assessment: Date of Thrive Assessment Date Thrive assessed 03/28/24 06/20/24 11:11 Currently or been in a relationship where the following occur: I choose not to answer Const General: no acute distress HENMT Head: Yes normal to inspection Mouth: Normal oral and palatal mucosa present Eyes General: appearance normal, both eyes and all related structures Resp Effort & Inspection: normal respiratory effort Auscultation: clear to auscultation bilaterally Cardio Rhythm: regular rhythm Heart sounds: S1 normal heart sound present and S2 normal heart sound present GI Inspection: Yes normal to inspection Extrem Other: 2+ pitting edema bilaterally Coding Level of Care Code Est Pt Level 4 (91214) Complex EM visit Add On G2211 Diagnoses Edema R60.9 Dementia F03.90 HTN (hypertension) I10 Assessment & Plan Assessment & Plan (1) Edema: Code(s): R60.9 - Edema, unspecified Category: Medical Plan: Continue furosemide every other day. Patient was advised to use compression knee-highs, elevate lower extremity and increase physical activity. She will be starting physical therapy at assisted living facility (2) Dementia: Code(s): F03.90 - Unspecified dementia, unspecified severity, without behavioral disturbance, psychotic disturbance, mood disturbance, and anxiety Category: Medical Plan: Continue donepezil (3) HTN (hypertension): Code(s): I10 - Essential (primary) hypertension Category: Medical Plan: Continue current medications Medications: New Lasix (furosemide) 20 mg PO Q OTHER DAY 30 tabs 3RF NS
[2024-06-20 11:08] VITALS: BP 110/56; PULSE 69; O2SAT 95; BMI 35.1
--- OUTSIDE RECORDS SUMMARY | 2024-06-20 11:09 | XMS_ITS | Clinical Summary ---
Author Organization Unknown Care Team Providers Care Fabric Worker Name Role Phone ALIYAH DAVIDSON, SHRUTHI Unavailable Unavailable TINO RN, FARIDEH Unavailable Unavailable ANNAMARIA PT, FATIMAH Unavailable Unavailable DAMIAN LEAD INFORMATICA DEVELOPER, FRANSISCA Unavailable Unavailable [place] OT, [place] Unavailable Unavailable KATHERIN LÓPEZN, VADIM Unavailable Unavailable Payers Payer Name Policy Type Policy Number Effective Date Expira tion Date [employer].[place].PP[place].AUTH [id number] Problems Condition Name Condition Details Condition Category [...] 03-19 00:00: 00 04-10 23:59 :00 No [id number] HTN 1 tablet DAILY 1 tablet DAILY (route: oral) Med Classific ation: Cardiovas cular Therapy Agents brimonidine 0.2 % eye drops 03-28 00:00: 00 Yes [id number] GLAUCOMA 1 drops 2 TIMES DAILY 1 drops 2 TIMES DAILY (route: ophthalmic (eye)) Med Classific ation: Ophthalmi c Agents cholecalcif corina (vitamin D3) 25 mcg (1,000 unit) capsule 03-28 00:00: 00 Yes [id number] SUPPLEMENT 1 capsule DAILY 1 capsule DAILY (route: oral) Med Classific ation: Electroly te Balance-N utritiona l Products Elderberry Immune Health 45 mg-3.75 mg-50 mg chewable tablet 03-28 00:00: 00 Yes [id number] SUPPLEMENT 1 tablet DAILY 1 tablet DAILY (route: oral) Med Classific ation: Electroly te Balance-N utritiona l Products latanoprost 0.005 % eye drops 03-28 00:00: 00 Yes [id number] GLAUCOMA 1 drops BEDTIME 1 drops BEDTIME (route: ophthalmic (eye)) Med Classific ation: Ophthalmi c Agents omega 3-dha 100 mg-epa 400 mg-fish oil 1,000 mg capsule 03-28 00:00: 00 Yes [id number] SUPPLEMENT 1 capsule DAILY 1 capsule DAILY (route: oral) Med Classific ation: Cardiovas cular Therapy Agents amlodipine 5 mg tablet 2023-07 00:00: 00 Yes [id number] HIGH BLOOD PRESSURE 1 tablet DAILY 1 [...] LEVEL ON ADMISSION AND FOR RN TO ASSESS/GLOBAL COMPENSATION ANALYST TO OBSERVE PATIENT, WITH NOTIFICATION TO THE [...] LEVEL ON ADMISSION AND FOR RN TO ASSESS/GLOBAL COMPENSATION ANALYST TO OBSERVE PATIENT, WITH NOTIFICATION TO THE [...] TO EVALUATE, OBSERVE / ASSESS, AND MONITOR, LEAD INFORMATICA DEVELOPER TO OBSERVE AND MONITOR, PROVIDE SKILLED THERAPEUTIC INTERVENTION, ACTIVITY, EDUCATION, AND TRAINING TO ADDRESS; PT/LEAD INFORMATICA DEVELOPER TO PROVIDE GAIT TRAINING FOR IMPROVED MOBILITY AND /OR TO NORMALIZE GAIT PATTERN NEUROMUSCULAR RE-EDUCATION / BALANCE / POSTURAL CONTROL (PT) BED TRANSFERS (PT/LEAD INFORMATICA DEVELOPER) SIT TO/FROM STAND TRANSFERS (PT/LEAD INFORMATICA DEVELOPER) PT / LEAD INFORMATICA DEVELOPER TO MONITOR AND EDUCATE ON OXYGEN SATURATION DURING ADLS/IADLS, NOTIFY PHYSICIAN AND/OR THE RN CLINICAL TRANSITION SOCIAL WORKER FOR PHYSICIAN NOTIFICATION AND IF O2 SATS BELOW PHYSICIAN ORDERED PARAMETERS AFTER 10 MIN OF REST PT/LEAD INFORMATICA DEVELOPER TO IDENTIFY FALL RISK FACTORS; EDUCATE THE PATIENT/CAREGIVER ON WAYS TO REDUCE FALL RISK FACTORS AND ESTABLISH HOME EXERCISE PROGRAM TO MINIMIZE FALL RISK. MAY TEACH THE PATIENT FLOOR RECOVERY WHEN CLINICALLY APPROPRIATE PT / LEAD INFORMATICA DEVELOPER MAY EDUCATE ON PAIN MANAGEMENT CLINICALLY INDICATED, INCLUDING NON-PHARMACOLOGICAL PAIN REDUCTION TECHNIQUES. [code = AGENCY MAY PERFORM A RESUMPTION OF CARE VISIT FOLLOWING ANY HOSPITAL ADMISSION. PT TO EVALUATE, OBSERVE / ASSESS, AND MONITOR, LEAD INFORMATICA DEVELOPER TO OBSERVE AND MONITOR, PROVIDE SKILLED THERAPEUTIC INTERVENTION, ACTIVITY, EDUCATION, AND TRAINING TO ADDRESS; PT/LEAD INFORMATICA DEVELOPER TO PROVIDE GAIT TRAINING FOR IMPROVED MOBILITY AND /OR TO NORMALIZE GAIT PATTERN NEUROMUSCULAR RE-EDUCATION / BALANCE / POSTURAL CONTROL (PT) BED TRANSFERS (PT/LEAD INFORMATICA DEVELOPER) SIT TO/FROM STAND TRANSFERS (PT/LEAD INFORMATICA DEVELOPER) PT / LEAD INFORMATICA DEVELOPER TO MONITOR AND EDUCATE ON OXYGEN SATURATION DURING ADLS/IADLS, NOTIFY PHYSICIAN AND/OR THE RN CLINICAL TRANSITION SOCIAL WORKER FOR PHYSICIAN NOTIFICATION AND IF O2 SATS BELOW PHYSICIAN ORDERED PARAMETERS AFTER 10 MIN OF REST PT/LEAD INFORMATICA DEVELOPER TO IDENTIFY FALL RISK FACTORS; EDUCATE THE PATIENT/CAREGIVER ON WAYS TO REDUCE FALL RISK FACTORS AND ESTABLISH HOME EXERCISE PROGRAM TO MINIMIZE FALL RISK. MAY TEACH THE PATIENT FLOOR RECOVERY WHEN CLINICALLY APPROPRIATE PT / LEAD INFORMATICA DEVELOPER MAY EDUCATE ON PAIN MANAGEMENT CLINICALLY INDICATED, [...] 2024-04-22 00:00:00 Outpatient NEW ADMISSION EKATERINA JIMÉNEZTHIA [facility] [id number] 2024-04-22 00:00:00 DISCHARGED /TRANSFERR ED TO A [facility] FACILITY (SNF) WITH MEDICARE CERTIFICAT ION IN ANTICIPATI ON OF SKILLED CARE PATIENT IN FACILITY AT END OF EPISODE HH ONLY - TRANSFER TO HOSPITAL 34.62
== END 2024-06-20 15:57 | disposition home or self-care (01) ==
PROVIDERS: PCP Internal Medicine; Visit Provider Internal Medicine
DX: R60.9 Edema, unspecified (principal); F03.90 Unspecified dementia, unspecified severity, without behavioral disturbance, psychotic disturbance, mood disturbance, and anxiety; I10 Essential (primary) hypertension

== ENCOUNTER → 2024-06-20 11:05 | Outpatient (BNVA) | payer MEDICARE, SELFPAY | PROVIDERS: PCP Internal Medicine; Visit Provider Internal Medicine | DX: R60.9 Edema, unspecified (principal); F03.90 Unspecified dementia, unspecified severity, without behavioral disturbance, psychotic disturbance, mood disturbance, and anxiety; I10 Essential (primary) hypertension | CPT/HCPCS: 99212 ==

== ENCOUNTER 2024-07-02 10:26 | Outpatient (REF) | payer MEDICARE, SELFPAY ==
--- OUTSIDE RECORDS SUMMARY | 2024-07-02 10:35 | XMS_ITS | Clinical Summary ---
Author Organization Unknown Care Team Providers Care Change Management Name Role Phone ALIYAH DAVIDSON, SHRUTHI Unavailable Unavailable TINO RN, FARIDEH Unavailable Unavailable ANNAMARIA PT, FATIMAH Unavailable Unavailable DAMIAN HARDNESS TESTER, FRANSISCA Unavailable Unavailable [place] OT, [place] Unavailable Unavailable KATHERIN LÓPEZN, VADIM Unavailable Unavailable Payers Payer Name Policy Type Policy Number Effective Date Expira tion Date [employer].PPO.[place].AUTH [id number] Problems Condition Name Condition Details Condition Category [...] 03-19 00:00: 00 04-10 23:59 :00 No [id number] HTN 1 tablet DAILY 1 tablet DAILY (route: oral) Med Classific ation: Cardiovas cular Therapy Agents brimonidine 0.2 % eye drops 03-28 00:00: 00 Yes [id number] GLAUCOMA 1 drops 2 TIMES DAILY 1 drops 2 TIMES DAILY (route: ophthalmic (eye)) Med Classific ation: Ophthalmi c Agents cholecalcif corina (vitamin D3) 25 mcg (1,000 unit) capsule 03-28 00:00: 00 Yes [id number] SUPPLEMENT 1 capsule DAILY 1 capsule DAILY (route: oral) Med Classific ation: Electroly te Balance-N utritiona l Products Elderberry Immune Health 45 mg-3.75 mg-50 mg chewable tablet 03-28 00:00: 00 Yes [id number] SUPPLEMENT 1 tablet DAILY 1 tablet DAILY (route: oral) Med Classific ation: Electroly te Balance-N utritiona l Products latanoprost 0.005 % eye drops 03-28 00:00: 00 Yes [id number] GLAUCOMA 1 drops BEDTIME 1 drops BEDTIME (route: ophthalmic (eye)) Med Classific ation: Ophthalmi c Agents omega 3-dha 100 mg-epa 400 mg-fish oil 1,000 mg capsule 03-28 00:00: 00 Yes [id number] SUPPLEMENT 1 capsule DAILY 1 capsule DAILY (route: oral) Med Classific ation: Cardiovas cular Therapy Agents amlodipine 5 mg tablet 2023-07 00:00: 00 Yes [id number] HIGH BLOOD PRESSURE 1 tablet DAILY 1 [...] LEVEL ON ADMISSION AND FOR RN TO ASSESS/COMMERCIAL ART INSTRUCTOR TO OBSERVE PATIENT, WITH NOTIFICATION TO [...] LEVEL ON ADMISSION AND FOR RN TO ASSESS/COMMERCIAL ART INSTRUCTOR TO OBSERVE PATIENT, WITH NOTIFICATION TO [...] TO EVALUATE, OBSERVE / ASSESS, AND MONITOR, HARDNESS TESTER TO OBSERVE AND MONITOR, PROVIDE SKILLED THERAPEUTIC INTERVENTION, ACTIVITY, EDUCATION, AND TRAINING TO ADDRESS; PT/HARDNESS TESTER TO PROVIDE GAIT TRAINING FOR IMPROVED MOBILITY AND /OR TO NORMALIZE GAIT PATTERN NEUROMUSCULAR RE-EDUCATION / BALANCE / POSTURAL CONTROL (PT) BED TRANSFERS (PT/HARDNESS TESTER) SIT TO/FROM STAND TRANSFERS (PT/HARDNESS TESTER) PT / HARDNESS TESTER TO MONITOR AND EDUCATE ON OXYGEN SATURATION DURING ADLS/IADLS, NOTIFY PHYSICIAN AND/OR THE RN CLINICAL PHOTO OFFSET PRINTER FOR PHYSICIAN NOTIFICATION AND IF O2 SATS BELOW PHYSICIAN ORDERED PARAMETERS AFTER 10 MIN OF REST PT/HARDNESS TESTER TO IDENTIFY FALL RISK FACTORS; EDUCATE THE PATIENT/CAREGIVER ON WAYS TO REDUCE FALL RISK FACTORS AND ESTABLISH HOME EXERCISE PROGRAM TO MINIMIZE FALL RISK. MAY TEACH THE PATIENT FLOOR RECOVERY WHEN CLINICALLY APPROPRIATE PT / HARDNESS TESTER MAY EDUCATE ON PAIN MANAGEMENT CLINICALLY INDICATED, INCLUDING NON-PHARMACOLOGICAL PAIN REDUCTION TECHNIQUES. [code = AGENCY MAY PERFORM A RESUMPTION OF CARE VISIT FOLLOWING ANY HOSPITAL ADMISSION. PT TO EVALUATE, OBSERVE / ASSESS, AND MONITOR, HARDNESS TESTER TO OBSERVE AND MONITOR, PROVIDE SKILLED THERAPEUTIC INTERVENTION, ACTIVITY, EDUCATION, AND TRAINING TO ADDRESS; PT/HARDNESS TESTER TO PROVIDE GAIT TRAINING FOR IMPROVED MOBILITY AND /OR TO NORMALIZE GAIT PATTERN NEUROMUSCULAR RE-EDUCATION / BALANCE / POSTURAL CONTROL (PT) BED TRANSFERS (PT/HARDNESS TESTER) SIT TO/FROM STAND TRANSFERS (PT/HARDNESS TESTER) PT / HARDNESS TESTER TO MONITOR AND EDUCATE ON OXYGEN SATURATION DURING ADLS/IADLS, NOTIFY PHYSICIAN AND/OR THE RN CLINICAL PHOTO OFFSET PRINTER FOR PHYSICIAN NOTIFICATION AND IF O2 SATS BELOW PHYSICIAN ORDERED PARAMETERS AFTER 10 MIN OF REST PT/HARDNESS TESTER TO IDENTIFY FALL RISK FACTORS; EDUCATE THE PATIENT/CAREGIVER ON WAYS TO REDUCE FALL RISK FACTORS AND ESTABLISH HOME EXERCISE PROGRAM TO MINIMIZE FALL RISK. MAY TEACH THE PATIENT FLOOR RECOVERY WHEN CLINICALLY APPROPRIATE PT / HARDNESS TESTER MAY EDUCATE ON PAIN MANAGEMENT CLINICALLY INDICATED, [...] 2024-04-22 00:00:00 Outpatient NEW ADMISSION EKATERINA JIMÉNEZTHIA [facility] [id number] 2024-04-22 00:00:00 DISCHARGED /TRANSFERR ED TO A CORRECTION FACILITY (SNF) WITH MEDICARE CERTIFICAT ION IN ANTICIPATI ON OF SKILLED CARE PATIENT IN FACILITY AT END OF EPISODE HH ONLY - TRANSFER TO HOSPITAL 34.62
--- OUTSIDE RECORDS SUMMARY | 2024-07-02 10:35 | XMS_ITS | Clinical Summary ---
Author Organization Unknown Care Team Providers Care Toll Test Worker Name Role Phone ALIYAH DAVIDSON, SHRUTHI Unavailable Unavailable TINO RN, FARIDEH Unavailable Unavailable ANNAMARIA PT, FATIMAH Unavailable Unavailable DAMIAN BANQUET PILOT, FRANSISCA Unavailable Unavailable [place] OT, SALENA Unavailable Unavailable KATHERIN LÓPEZN, VADIM Unavailable Unavailable Payers Payer Name Policy Type Policy Number Effective Date Expira tion Date [employer].PPO.C.AUTH [id number] Problems Condition Name Condition Details Condition Category [...] 03-19 00:00: 00 04-10 23:59 :00 No [id number] HTN 1 tablet DAILY 1 tablet DAILY (route: oral) Med Classific ation: Cardiovas cular Therapy Agents brimonidine 0.2 % eye drops 03-28 00:00: 00 Yes [id number] GLAUCOMA 1 drops 2 TIMES DAILY 1 drops 2 TIMES DAILY (route: ophthalmic (eye)) Med Classific ation: Ophthalmi c Agents cholecalcif corina (vitamin D3) 25 mcg (1,000 unit) capsule 03-28 00:00: 00 Yes [id number] SUPPLEMENT 1 capsule DAILY 1 capsule DAILY (route: oral) Med Classific ation: Electroly te Balance-N utritiona l Products Elderberry Immune Health 45 mg-3.75 mg-50 mg chewable tablet 03-28 00:00: 00 Yes [id number] SUPPLEMENT 1 tablet DAILY 1 tablet DAILY (route: oral) Med Classific ation: Electroly te Balance-N utritiona l Products latanoprost 0.005 % eye drops 03-28 00:00: 00 Yes [id number] GLAUCOMA 1 drops BEDTIME 1 drops BEDTIME (route: ophthalmic (eye)) Med Classific ation: Ophthalmi c Agents omega 3-dha 100 mg-epa 400 mg-fish oil 1,000 mg capsule 03-28 00:00: 00 Yes [id number] SUPPLEMENT 1 capsule DAILY 1 capsule DAILY (route: oral) Med Classific ation: Cardiovas cular Therapy Agents amlodipine 5 mg tablet 2023-07 00:00: 00 Yes [id number] HIGH BLOOD PRESSURE 1 tablet DAILY 1 [...] LEVEL ON ADMISSION AND FOR RN TO ASSESS/FICTION AND NONFICTION PROSE WRITER TO OBSERVE PATIENT, WITH NOTIFICATION TO THE [...] LEVEL ON ADMISSION AND FOR RN TO ASSESS/FICTION AND NONFICTION PROSE WRITER TO OBSERVE PATIENT, WITH NOTIFICATION TO THE [...] TO EVALUATE, OBSERVE / ASSESS, AND MONITOR, BANQUET PILOT TO OBSERVE AND MONITOR, PROVIDE SKILLED THERAPEUTIC INTERVENTION, ACTIVITY, EDUCATION, AND TRAINING TO ADDRESS; PT/BANQUET PILOT TO PROVIDE GAIT TRAINING FOR IMPROVED MOBILITY AND /OR TO NORMALIZE GAIT PATTERN NEUROMUSCULAR RE-EDUCATION / BALANCE / POSTURAL CONTROL (PT) BED TRANSFERS (PT/BANQUET PILOT) SIT TO/FROM STAND TRANSFERS (PT/BANQUET PILOT) PT / BANQUET PILOT TO MONITOR AND EDUCATE ON OXYGEN SATURATION DURING ADLS/IADLS, NOTIFY PHYSICIAN AND/OR THE RN CLINICAL AIRCRAFT NAVIGATOR FOR PHYSICIAN NOTIFICATION AND IF O2 SATS BELOW PHYSICIAN ORDERED PARAMETERS AFTER 10 MIN OF REST PT/BANQUET PILOT TO IDENTIFY FALL RISK FACTORS; EDUCATE THE PATIENT/CAREGIVER ON WAYS TO REDUCE FALL RISK FACTORS AND ESTABLISH HOME EXERCISE PROGRAM TO MINIMIZE FALL RISK. MAY TEACH THE PATIENT FLOOR RECOVERY WHEN CLINICALLY APPROPRIATE PT / BANQUET PILOT MAY EDUCATE ON PAIN MANAGEMENT CLINICALLY INDICATED, INCLUDING NON-PHARMACOLOGICAL PAIN REDUCTION TECHNIQUES. [code = AGENCY MAY PERFORM A RESUMPTION OF CARE VISIT FOLLOWING ANY HOSPITAL ADMISSION. PT TO EVALUATE, OBSERVE / ASSESS, AND MONITOR, BANQUET PILOT TO OBSERVE AND MONITOR, PROVIDE SKILLED THERAPEUTIC INTERVENTION, ACTIVITY, EDUCATION, AND TRAINING TO ADDRESS; PT/BANQUET PILOT TO PROVIDE GAIT TRAINING FOR IMPROVED MOBILITY AND /OR TO NORMALIZE GAIT PATTERN NEUROMUSCULAR RE-EDUCATION / BALANCE / POSTURAL CONTROL (PT) BED TRANSFERS (PT/BANQUET PILOT) SIT TO/FROM STAND TRANSFERS (PT/BANQUET PILOT) PT / BANQUET PILOT TO MONITOR AND EDUCATE ON OXYGEN SATURATION DURING ADLS/IADLS, NOTIFY PHYSICIAN AND/OR THE RN CLINICAL AIRCRAFT NAVIGATOR FOR PHYSICIAN NOTIFICATION AND IF O2 SATS BELOW PHYSICIAN ORDERED PARAMETERS AFTER 10 MIN OF REST PT/BANQUET PILOT TO IDENTIFY FALL RISK FACTORS; EDUCATE THE PATIENT/CAREGIVER ON WAYS TO REDUCE FALL RISK FACTORS AND ESTABLISH HOME EXERCISE PROGRAM TO MINIMIZE FALL RISK. MAY TEACH THE PATIENT FLOOR RECOVERY WHEN CLINICALLY APPROPRIATE PT / BANQUET PILOT MAY EDUCATE ON PAIN MANAGEMENT CLINICALLY INDICATED, [...] 2024-04-22 00:00:00 Outpatient NEW ADMISSION EKATERINA [facility]IM[facility]NEZTH[facility] [id number] 2024-04-22 00:00:00 DISCHARGED /TRANSFERR ED TO A SNF FACILITY (SNF) WITH MEDICARE CERTIFICAT ION IN ANTICIPATI ON OF SKILLED CARE PATIENT IN FACILITY AT END OF EPISODE HH ONLY - TRANSFER TO HOSPITAL 34.62
[2024-07-02 12:26] LABS: Vitamin B12 457 pg/mL (200-900)
[2024-07-03 06:34] LABS: Lyme Abs Screen <0.90 index
== END 2024-07-02 10:27 | disposition home or self-care (01) ==
LOC: HO.LAB 10:26
PROVIDERS: PCP Internal Medicine; Visit Provider Psychiatry & Neurology Neurology
DX: F03.90 Unspecified dementia, unspecified severity, without behavioral disturbance, psychotic disturbance, mood disturbance, and anxiety (principal)
CPT/HCPCS: 36415; 82607; 86617; 86618

== ENCOUNTER 2024-07-25 10:17 | Outpatient (AMB) | payer MEDICARE, SELFPAY ==
[2024-07-25 10:50] VITALS: BP 120/62; PULSE 63; TEMP 36.5; O2SAT 97; BMI 33.3
--- NOTE | 2024-07-25 10:50 | A.OFFPC_ITS ---
Vital Signs 07/25/24 10:50 Height 5 ft 2 in Weight 182 lb BMI 33.3 BP 120/62 Blood Pressure Location Rt brachial Position Sitting Pulse 63 Pulse Source Pulse Oximeter Temp 97.7 F Temp Source Oral Pulse Oximetry (%) 97 Oxygen Delivery Method Room Air Intake Visit Reasons: 1m follow up Intake Note: Pt is here today for 1 month follow up visit. Allergies No Known Allergies Allergy (Verified 07/25/24 10:55) Medication List - Last Reconciled 07/25/24 by Betty Arevalo MD amlodipine-olmesartan 5-20 mg 1 tab PO DAILY aspirin (Adult Low Dose Aspirin) 81 mg PO DAILY blood pressure monitor As directed to monitor blood pressure brimonidine 0.2% 1 drp ophthalmic (eye) BID carbidopa-levodopa 25-100 mg 1 tab PO QID cholecalciferol (vitamin D3) (Vitamin D3) 25 mcg PO DAILY donepezil 5 mg PO BEDTIME elderberry fruit mg PO furosemide (Lasix) 20 mg PO Q OTHER DAY latanoprost 0.005% 1 drp ophthalmic (eye) BEDTIME miscellaneous medical supply Blood pressure cuff as directed QD; omega-3 fatty acids 1,000 mg PO DAILY Tobacco use date assessed: 07/25/24 Fall risk assessment: 2 + Falls in past year Last assessed Fall Risk: 07/25/24 Dental Screening Dental Screen Date: 07/25/24 Did you have a dental visit in the last 12 months?: Yes Did you have a dental problem in the last 6 months where you did not have access to dental care?: No Was dental information given to patient?: Patient has dentist HPI 1m follow up HPI Details Patient presents for the follow-up on hypertension chronic lower extremity edema newly diagnosed Parkinson's disease started on carbidopa levodopa by neurologist. Patient is doing better. She is ambulating with a walker and lives in assisted living facility [facility] Medical History HTN (hypertension) Hyperlipidemia Left carotid bruit Head trauma Glaucoma Surgical History H/O left knee surgery H/O colonoscopy Family History Father No problems noted. Mother No problems noted. Social History Household Members: Children Household Members Other:: [facility] - assisted Living Housing: House Are you a primary post acute care nurse practitioner to a significant other at home: No Alcohol intake: current Alcohol intake frequency: holidays/special occasions only Patient Tobacco Use Status: Never used Tobacco e-Cigarette/Vaping Use: Never Used Second Hand Smoke Exposure: No service: No Current occupational status: retired Cognitive needs: No Hearing needs: No Vision needs: Yes Questionnaire PHQ-9 Over the last 2 weeks, how often have you been bothered by any of the following problems? 1. Little interest or pleasure in doing things: not at all 2. Feeling down, depressed, or hopeless: not at all 3. Trouble falling or staying asleep, or sleeping too much: more than half the days 4. Feeling tired or having little energy: not at all 5. Poor appetite or overeating: not at all 6. Feeling bad about yourself - or that you are a failure or have let yourself or your family down: several days 7. Trouble concentrating on things, such as reading the newspaper or watching television: not at all 8. Moving or speaking so slowly that other people could have noticed. Or the opposite - being so fidgety or restless that you have been moving around a lot more than usual: not at all 9. Thoughts that you would be better off or of hurting yourself in some way: not at all Total score: 3 Depression Screening Interpretation: Negative Depression Screening Done: Yes 46363 - PHQ-9 Billing: Yes Source: Developed by Drs. Jan Lebron, Rachel Azul, Gualberto Parada and colleagues, with an educational chava from [employer]. Thrive Questionnaire Date Thrive assessed: 07/25/24 I am a: Patient What is your living situation today?: I have a steady place to live Within the past 12 months, did the food you bought not last and you didn't have the money to get more?: Never true Within the past 12 months, did you worry whether your food would run out before you got money to buy more?: Never true Do you have trouble paying for medicines?: No Do you have trouble getting transportation to medical appointments?: No Do you have trouble paying your heating and electricity bill?: No Do you have trouble taking care of your child, family member or friend?: I choose not to answer this question Do you have trouble with day-to-day activities such as bathing, preparing meals, shopping, managing finances, etc.?: No Are you currently unemployed and looking for a job?: No Are you interested in more education?: No Please select the resources that you would like help with: None Currently or been in a relationship where the following occur: No concerns reported THRIVE Score: 0 AUDIT C Alcohol Use Questionnaire (AUDIT-C) 1. How often do you have a drink containing alcohol?: Monthly or less 2. How many drinks containing alcohol do you have on a typical day when you are drinking?: 1 or 2 3. How often do you have six or more drinks on one occasion?: Never Total Score: 1 RADHA-7 AMB Questionnaire RADHA-7 Date RADHA - 7 assessed: 07/25/24 Feeling nervous, anxious, or on edge: 1 = Several days Not being able to stop or control worryin = Not at all Worrying too much about different things: 0 = Not at all Trouble relaxin = Not at all Being so restless that it is hard to sit still: 0 = Not at all Becoming easily annoyed or irritable: 1 = Several days Feeling afraid as if something awful might happen: 1 = Several days Total RADHA-7 score (0-4 normal; 5-9 mild; 10-14 moderate; 15-21 severe): 3 Source: Developed by Drs. Jan Lebron, Rachel Azul, Gualberto Parada and colleagues, with an educational chava from [employer]. RADHA-7 Assessment Billing RADHA-7 Assessment Tool: RADHA-7 Assessment 63436 Review of Systems Const All systems reviewed & are unremarkable except as noted in HPI and below Eyes Reports no additional complaints ENT Reports no additional complaints Card Reports no additional complaints Resp Reports no additional complaints GI Reports no additional complaints Reports no additional complaints Physical exam (Primary Care) Vital Signs: Last Vital Signs Temp 97.7 F 07/25/24 10:50 Pulse 63 07/25/24 10:50 BP 120/62 07/25/24 10:50 Pulse Ox 97 07/25/24 10:50 Oxygen Delivery Method Room Air 07/25/24 10:50 BMI result Body Mass Index 33.3 Tobacco/Smoking Status: Tobacco use Status Tobacco use date assessed 07/25/24 07/25/24 10:55 Patient Tobacco Use Status Never used Tobacco 07/25/24 10:51 e-Cigarette/Vaping Use Never Used 07/25/24 10:51 PHQ-9: PHQ-9 Score PHQ-9: Total score 3 07/25/24 11:06 Depression Screening Interpretation: Negative Thrive Assessment: Date of Thrive Assessment Date Thrive assessed 07/25/24 07/25/24 11:06 Currently or been in a relationship where the following occur: No concerns reported Const General: no acute distress HENMT Face and sinus: Yes normal facial exam Neck Neck: Yes no lymphadenopathy and Yes supple Resp Effort & Inspection: normal respiratory effort Auscultation: clear to auscultation bilaterally Cardio Rhythm: regular rhythm Heart sounds: S1 normal heart sound present and S2 normal heart sound present GI Inspection: Yes normal to inspection Palpation (GI): Soft to palpation Percussion: Yes normal to percussion Auscultation: normal bowel sounds Coding Level of Care Code Est Pt Level 4 (42035) Complex EM visit Add On G2211 Diagnoses Hyperlipidemia E78.5 HTN (hypertension) I10 Dementia F03.90 Parkinson disease G20.A1 Additional Codes RADHA-7 Assessment Billing - RADHA-7 Assessment Tool: RADHA-7 Assessment 97101 ([id number]) PHQ-9 - 81800 - PHQ-9 Billing: Yes ([id number]) Assessment & Plan Assessment & Plan (1) Hyperlipidemia: Comment: Stop Lipitor per patient's son request Code(s): E78.5 - Hyperlipidemia, unspecified Category: Medical Plan: Continue low-cholesterol diet (2) HTN (hypertension): Code(s): I10 - Essential (primary) hypertension Category: Medical Plan: Continue current medications (3) Dementia: Code(s): F03.90 - Unspecified dementia, unspecified severity, without behavioral disturbance, psychotic disturbance, mood disturbance, and anxiety Category: Medical Plan: Continue donepezil (4) Parkinson disease: Comment: Follow-up with [facility] Neurology Code(s): G20.A1 - Parkinson's disease without dyskinesia, without mention of fluctuations Category: Medical Plan: Continue current medications follow-up with Neurology, pt will return in 6 months with a fasting labs before Orders: Orders Comprehensive [place]. Panel Fast 6 Months E78.5 - Hyperlipidemia, unspecified, F03.90 - Unspecified dementia, unspecified severity, without behavioral disturb ance, psychotic disturbance, mood disturbance, and anxiety, I10 - Essential (primary) hypertension TSH reflex Free T4 6 Months E78.5 - Hyperlipidemia, unspecified, F03.90 - Unspecified dementia, unspecified severity, without behavioral disturbance, psychotic disturbance, mood disturbance, and anxiety, I10 - Essential (primary) hypertension Complete Blood Count Auto Diff 6 Months E78.5 - Hyperlipidemia, unspecified, F03.90 - Unspecified dementia, unspecified severity, without behavioral disturbance, psychotic disturbance, mood disturbance, and anxiety, I10 - Essential (primary) hypertension
== END 2024-07-25 11:47 | disposition home or self-care (01) ==
PROVIDERS: PCP Internal Medicine; Visit Provider Internal Medicine
DX: E78.5 Hyperlipidemia, unspecified (principal); I10 Essential (primary) hypertension; F03.90 Unspecified dementia, unspecified severity, without behavioral disturbance, psychotic disturbance, mood disturbance, and anxiety; G20.A1 Parkinson's disease without dyskinesia, without mention of fluctuations

== ENCOUNTER → 2024-07-25 10:17 | Outpatient (BNVA) | payer MEDICARE, SELFPAY | PROVIDERS: PCP Internal Medicine; Visit Provider Internal Medicine | DX: E78.5 Hyperlipidemia, unspecified (principal); I10 Essential (primary) hypertension; F03.90 Unspecified dementia, unspecified severity, without behavioral disturbance, psychotic disturbance, mood disturbance, and anxiety; G20.A1 Parkinson's disease without dyskinesia, without mention of fluctuations | CPT/HCPCS: 96127; 99212 ==

== ENCOUNTER 2024-08-22 10:09 | Outpatient (AMB) | payer MEDICARE, SELFPAY ==
--- NOTE | 2024-08-22 10:10 | A.OFFPC_ITS ---
Vital Signs 08/22/24 10:14 Height 5 ft 2 in Weight 182 lb BMI 33.3 BP 118/62 Blood Pressure Location Lt brachial Position Sitting Respiration 16 Pulse 73 Pulse Source Pulse Oximeter Temp 97.4 F Temp Source Oral Pulse Oximetry (%) 97 Oxygen Delivery Method Room Air Intake Visit Reasons: f/u finger pain Allergies No Known Allergies Allergy (Verified 08/22/24 10:11) Medication List - Last Reconciled 08/22/24 by Betty Arevalo MD albuterol sulfate 90 mcg/actuation 2 puffs inhalation Q6H PRN amlodipine-olmesartan 5-20 mg 1 tab PO DAILY aspirin 81 mg PO DAILY blood pressure monitor As directed to monitor blood pressure brimonidine 0.2% 1 drp ophthalmic (eye) BID carbidopa-levodopa 25-100 mg 1 tab PO QID cholecalciferol (vitamin D3) (Vitamin D3) 25 mcg PO DAILY donepezil 5 mg PO BEDTIME elderberry fruit mg PO furosemide (Lasix) 20 mg PO Q OTHER DAY latanoprost 0.005% 1 drp ophthalmic (eye) BEDTIME miscellaneous medical supply Blood pressure cuff as directed QD; omega-3 fatty acids 1,000 mg PO DAILY Tobacco use date assessed: 07/25/24 Fall risk assessment: No Falls in past year Last assessed Fall Risk: 08/22/24 Dental Screening Dental Screen Date: 08/22/24 HPI f/u finger pain HPI Details Patient presents complaining of having coughing and choking occasionally when eating solids like rice. She denies odynophagia sore throat GERD symptoms. Patient is established with Neurology for Parkinson's disease and has been taking carbidopa levodopa. Hypertension is controlled on current medications. Patient pulled her 5th right finger a few days ago and went to walk-in. XR was negative. The pain has been improving the patient has been using her hand without difficulty [facility] Medical History (Updated 08/22/24 @ 10:47 by Betty Arevalo MD) HTN (hypertension) Hyperlipidemia Left carotid bruit Head trauma Glaucoma Surgical History H/O left knee surgery H/O colonoscopy Family History Father No problems noted. Mother No problems noted. Social History Household Members: Children Household Members Other:: [facility] - assisted Living Housing: House Are you a primary critical care unit nurse to a significant other at home: No Alcohol intake: current Alcohol intake frequency: holidays/special occasions only Patient Tobacco Use Status: Never used Tobacco e-Cigarette/Vaping Use: Never Used Second Hand Smoke Exposure: No service: No Current occupational status: retired Cognitive needs: No Hearing needs: No Vision needs: Yes Questionnaire Thrive Questionnaire Date Thrive assessed: 07/25/24 RADHA-7 AMB Questionnaire RADHA-7 Date RADHA - 7 assessed: 07/25/24 Source: Developed by Drs. Jan Lebron, Rachel Azul, Gualberto Parada and colleagues, with an educational chava from [employer]. Review of Systems Const All systems reviewed & are unremarkable except as noted in HPI and below Eyes Reports no additional complaints ENT Reports no additional complaints Card Reports no additional complaints Resp Reports no additional complaints GI Reports no additional complaints Reports no additional complaints Physical exam (Primary Care) Vital Signs: Last Vital Signs Temp 97.4 F 08/22/24 10:14 Pulse 73 08/22/24 10:14 Resp 16 08/22/24 10:14 BP 118/62 08/22/24 10:14 Pulse Ox 97 08/22/24 10:14 Oxygen Delivery Method Room Air 08/22/24 10:14 BMI result Body Mass Index 33.3 Tobacco/Smoking Status: Tobacco use Status Tobacco use date assessed 07/25/24 08/22/24 10:10 Patient Tobacco Use Status Never used Tobacco 08/22/24 10:10 e-Cigarette/Vaping Use Never Used 08/22/24 10:10 Thrive Assessment: Date of Thrive Assessment Date Thrive assessed 07/25/24 08/22/24 10:10 Const General: no acute distress HENMT Head: Yes normal to inspection Face and sinus: Yes normal facial exam Mouth: Normal oral and palatal mucosa present Throat: Yes posterior oropharynx normal Neck Neck: Yes supple Resp Effort & Inspection: normal respiratory effort Auscultation: clear to auscultation bilaterally Cardio Rhythm: regular rhythm Heart sounds: S1 normal heart sound present and S2 normal heart sound present Coding Level of Care Code Est Pt Level 4 (86068) Diagnoses Lung nodule R91.1 Aspiration into airway T17.908A HTN (hypertension) I10 Parkinson disease G20.A1 Assessment & Plan Assessment & Plan (1) Lung nodule: Comment: [address] 06/2024, repeat in 6-8 months Code(s): R91.1 - Solitary pulmonary nodule Category: Medical Plan: Repeat CT in 6 months (2) Aspiration into airway: Code(s): T17.908A - Unspecified foreign body in respiratory tract, part unspecified causing other injury, initial encounter Category: Medical Plan: Obtain swallow evaluation to rule out aspiration (3) HTN (hypertension): Code(s): I10 - Essential (primary) hypertension Category: Medical Plan: Continue current medications (4) Parkinson disease: Comment: Follow-up with [facility] Neurology Code(s): G20.A1 - Parkinson's disease without dyskinesia, without mention of fluctuations Category: Medical Plan: Continue current medications Orders: Orders [place] Modified Barium Swallow Today T17.908A - Unspecified foreign body in re spiratory tract, part unspecified causing other injury, initial encounter CT chest wo IV con 6 Months R91.1 - Solitary pulmonary nodule Medications: New albuterol sulfate 90 mcg/actuation 2 puffs inhalation Q6H PRN 6.7 grams 0RF shortness of breath or wheezing
[2024-08-22 10:14] VITALS: BP 118/62; PULSE 73; RESP 16; TEMP 36.3; O2SAT 97; BMI 33.3
--- OUTSIDE RECORDS SUMMARY | 2024-08-22 11:15 | XMS_ITS | Encounter Summary ---
Author Organization [facility] Address [address] [place] [address] Care Team Providers Care Manager Unit Name Role Phone Betty Arevalo MD Primary Care Provider [phone] Encounter Details Date Type Department Care Team (Late st Contact Info) Description 08/22/2024 9:04 AM EST Hospital Encounter [facility] Ortho Xray [address] [place] [address] Pain Social History Tobacco Use Types Packs/Day Years Used Date Smoking Tobacco: Former Cigarettes Smokeless Tobacco: Never Comments:Remote tobacco smok er Alcohol Use Standard Drinks/Week Comments Yes 0 (1 standard drink = 0.6 oz pur e alcohol) very rare Interpersonal Safety Answer Date Record ed Physical Abuse 06/23/2024 Verbal Abuse 06/23/2024 Comments Unknown Sex and Gender Information Value Date Recorded Sex Assigned at Female 06/13/2024 11:26 AM EST Legal Sex Female 3:56 PM EST Gender Identity Female 06/13/2024 11:26 AM EST Sexual Orientation Straight 08/17/2024 9: 18 PM EST Occupation Industry Job Start Date Job End Date Retired nurse Not on file Not on file Not on file documented as of this encounter Functional Status * Are you deaf or do you have serious difficulty hearing? Answer Date of Assessment Author No 06/13/2024 11:19 AM Mitch Eugene RN * Are you blind or do you have serious difficulty seeing, even when wearing glasses? Answer Date of Assessment Author No 06/13/2024 11:19 AM Mitch Eugene RN * Do you have serious difficulty walking or climbing stairs? Answer Date of Assessment Author No 06/13/2024 11:19 AM Mitch Eugene RN * Do you have serious difficulty dressing or bathing? Answer Date of Assessment Author No 06/13/2024 11:19 AM Mitch Eugene RN * Because of a physical, mental, or emotional condition, do you have serious difficulty doing errandsalone such as visiting the doctor? Answer Date of Assessment Author No 06/13/2024 11:19 AM Mitch Eugene RN documented as of this encounter Mental Status * Because of a physical, mental, or emotional condition, do you have serious difficulty concentrating, remembering, or making decisions? (5 years old or older) Answer Entry Date Author No 06/13/2024 11:19 AM Mitch Eugene RN documented in this encounter Plan of Treatment Not on file documented as of this encounter Procedures Procedure Name Priority Date/Time Associated Diagnosis Comments XR HAND 3+ VIEWS RIGHT Routine 08/22/2024 9:15 AM EST Pain documented in this encounter Results * XR Hand 3+ Views Right (08/22/2024 9:15 AM EST) Narrative RIS PACS/VR - 08/22/2024 9:15 AM EST This order has been auto-finalized and does not contain a result. Jayjay Patel MD IMG XR PROCEDURES Final Result RIS PACS/VR documented in this encounter Visit Diagnoses Diagnosis Pain Generalized pain documented in this encounter Care Teams Manager Unit Relationship Specialty Start Date End Date Betty Arevalo MD [address] [place] [address] PCP - General Internal Medicine 06/13/24 documented as of this encounter
--- OUTSIDE RECORDS SUMMARY | 2024-08-22 11:15 | XMS_ITS | Encounter Summary ---
Author Organization [facility] Address [address] [place] [address] Care Team Providers Care Stake Driver Name Role Phone Betty Arevalo MD Primary Care Provider [phone] Reason for Referral * Consultation (Routine) - Pending Review Specialty Diagnoses / Procedures Referred By Renate caputo Referred To Contact Orthopaedics / Orthopedic Procedures [place] VISIT OFFICE OUTPATIENT ESTABLISHED MODERATE LEVEL Jan Moses PA [address] [place] [address] Phone: tel: fax: Referral ID Status Reason Start Date Expiration Date Visits Requested Visits Authorized [id number] Pending Review Specialty Services Required 08/17/2024 08/17/2025 1 1 Reason for Visit * Reason Comments Hand Pain Right 5th finger inj ury after fall last night Encounter Details Date Type Department Care Team (Late st Contact Info) Description 08/17/2024 9:00 PM EST - 08/17/2024 10:34 PM EST Emergency [facility] Emergency [address] [place] [address] Closed dislocation of finger of right hand, initial encounter (Primary Dx) Discharge Disposition: Home or Self Care Social History Tobacco Use Types Packs/Day Years [...] on file documented as of this encounter Last Filed Vital Signs Vital Sign Reading Time Taken Comments Blood Pressure 133/62 08/17/2024 8:03 PM EST Pulse 70 08/17/2024 8:03 PM EST Temperature 37.1 ??C (98.8 ??F) 08/17/2024 8:03 PM ES T Respiratory Rate 18 08/17/2024 8:03 PM EST Oxygen Saturation 97% 08/17/2024 8:03 PM EST Inhaled Oxygen Concentration - - Weight 86.2 kg (190 lb) 08/17/2024 8:03 PM EST Height 157.5 cm (5' 2 ) 08/17/2024 8:03 PM EST Body Mass Index 34.75 08/17/2024 8:03 PM EST documented in this encounter Functional Status * Are you [...] Mitch Eugene RN documented in this encounter Discharge Instructions * Discharge Instructions* YANNI Middleton - 08/17/2024 9:54 PM EST You had a dislocation of your right fifth digit, also known as the pinky finger. Medicine was injected at the base of the finger for numbing purposes and the finger was put back into place. He should keep the splint on throughout the day. Please call the orthopedic office Monday morning and make an appointment to follow-up with them next week. I have given you their contact information, as well as put a referral in. Take Tylenol as needed for any discomfort. Ice the finger. Return to the ER with any new or worsening symptoms. documented in this encounter Medications at Time of Discharge amLODIPine-olmesa rtan (DIONISIO) 5-20 mg per tablet Take 1 tablet by mouth 1 (one) time each day. 06/11/2024 donepeziL (ARICEPT) 5 mg tablet Take 1 tablet (5 mg total) by mouth at bedtime. 06/14/2024 documented as of this encounter Discharge Disposition Disposition Code Departure Means Destination Comment s Home or Self Care documented in this encounter Progress Notes * Ya Dong RN - 08/17/2024 8:11 PM EST PT ARRIVES WITH RT 5TH DIGIT COMPLAINT, STATES FALL LAST PM, NO HEAD STRIKE, NO LOC, DENIES ANY OTHER INJURIES, DENIES ANY SYNCOPE, CHEST PAIN, STATES TRIP AND FALL * Daniel Garcia RN - 08/17/2024 7:49 PM EST BIBA from assisted living c/o right 5th finger pain after fall last night. Denies any other injuries. Obvious deformity and bruising. * YANNI Middleton - 08/17/2024 7:45 PM ESTAssociated Order(s): Digital Block; Splint Application; Orthopedic Injury Treatment - Upper Extremity [facility] Emergency Department Encounter Note Patient Name: Shelby Garner Initial Evaluation: 08/17/2024 : 1940 Patient's PCP: Betty Arevalo MD Emergency Physician: YANNI Monique History of Present Illness Chief Complaint: Chief Complaint Patient presents with Hand Pain Right 5th finger injury after fall last night HPI: Shelby is a pleasant 84 year-old female with reported history of dementia, HTN; who present for evaluation of painful right fifth digit deformity s/p fall last night. Reportedly tripped and fell, denies head strike or LOC. Able to get herself up. Initially thought she'd manage it herself, but with persistent pain today, elected to present by EMS for evaluation. Denies any associated chest pain, dyspnea, lightness, dizziness, visual change or loss. No other complaints. ROS: I have performed a ROS with the pertinent positives and negatives documented in the history ofpresent illness. Previous History Past Medical History: Diagnosis Date Asthma Dementia (CMS/HCC) Hyperlipidemia Hypertension Past Surgical History: Procedure Laterality Date SECTION OOPHORECTOMY TONSILLECTOMY ADENOIDECTOMY, BILATERAL MYRINGOTOMY AND TUBES Social History Tobacco Use Smoking status: Former Types: Cigarettes Smokeless tobacco: Never Tobacco comments: Remote tobacco smoker Substance Use Topics Alcohol use: Yes Comment: very rare Drug use: Never Family History Problem Relation Name Age of Onset Allergies Mother Dementia Sister Dementia Brother has No Known Allergies. No current facility-administered medications on file prior to encounter. Current Outpatient Medications on File Prior to Encounter Medication Sig Dispense Refill amLODIPine-olmesartan (DIONISIO) 5-20 mg per tablet Take 1 tablet by mouth 1 (one) time each day. donepeziL (ARICEPT) 5 mg tablet Take 1 tablet (5 mg total) by mouth at bedtime. furosemide (LASIX) 20 mg tablet Take 1 tablet (20 mg total) by mouth 1 (one) time per week. 4 each 0 Physical Exam ED Triage Vitals [08/17/242002] Temp Heart Rate Resp BP 37.1 ??C (98.8 ??F) 70 18 133/62 SpO2 Temp Source Heart Rate Source Patient Position 97 % Temporal Other (Comment) Sitting BP Location FiO2 (%) -- -- GENERAL: Non-toxic appearing, no acute distress. SKIN: [place], warm, dry. HEENT: Normocephalic, atraumatic. EOMI. NECK: Supple, full ROM. CARDIOVASCULAR: RRR, no MRG. PULMONARY: Breathing adequately on room air. CTAB. ABDOMINAL: No active GI upset. MUSCULOSKELETAL: RUE: Obvious, edematous, closed deformity at the fifth PIP. Unable to actively range due to mechanical intubation. Mild tenderness distally. Otherwise nontender to palpation about the limb. Grossly neurovascularly intact. LUE: Nontender to palpation about the length of the limb. Nonpainful and purposeful movements alongall aspects. Grossly NVI. RLE: Nontender to palpation about the length of the limb. Nonpainful and purposeful movements alongall aspects. Calf supple/nontender. Active dorsiflexion/plantarflexion ability. Grossly NVI. LLE: Nontender to palpation about the length of the limb. Nonpainful and purposeful movements alongall aspects. Calf supple/nontender. Active dorsiflexion/plantarflexion ability. Grossly NVI. NEURO: AOx3 PSYCHIATRIC: Normal affect, fluid speech, good eye contact and appropriate demeanor. Results Labs Reviewed - No data to display Abnormal Labs Reviewed - No data to display XR Fingers 2+ Views Right ED Interpretation Three-view postreduction radiographs of the right fifth digit independently reviewed, demonstratingsuccessful reduction of previously noted dislocation at the PIP. There does appear to be a subcentimeter avulsion fracture from the volar base of the middle phalanx. XR Fingers 2+ Views Right ED Interpretation Three-view radiographs of the right fifth digit independent reviewed, demonstrating an anterior subluxation at the PIP. I have discussed the incidental/abnormal imaging and/or lab abnormalities with the patient and haveinstructed them the need for further evaluation and workup with their primary care doctor. I have provided the patient with a paper copy of the abnormality. The laboratory results, imaging results and other diagnostic exam results were reviewed in the EMR. Differential Diagnosis Finger dislocation Finger fracture Finger sprain Finger strain ? Medical Decision Making On my exam is NAD, nontoxic-appearing, hemodynamically stable and afebrile. Overall she is clinically well-appearing. AOx3, GCS 15. Head is normocephalic and atraumatic. She has no lateralizing or focal deficits. She provides a consistent story, and is adamant that there was no head strike. There is no evidence of head injury on examination. No evidence to support basal skull fracture. Midline spinous processes are without any tenderness. No step-off, deviation or deformity. C-spine cleared perNexus criteria. She is adamant that this fall was mechanical in nature. Radiographs confirmed dislocation of the right fifth PIP. She underwent digital block with good effect, successful reduction confirmed with radiographs, also showing a subcentimeter avulsion fracture at the base of the middle phalanx. None of this appears to be operative in nature. She was placed into a splint. Referral has been given to orthopedics. Recommend Tylenol as needed for discomfort. Ice. Patient is thankful for care provided here today. She has no other complaints and would like to be discharged at this time. She will be discharged back to her assisted living facility. Medically and hemodynamically stable. While she appears to be mentating appropriately with me, she does have a documented history of dementia and would be returning to an assisted living facility. I am hesitant to provide a lift transport for considering the current snowstorm. Will coordinate for EMS transfer back home. Clinical Impressions as of 08/17/242153 Closed dislocation of finger of right hand, initial encounter Medications lidocaine (XYLOCAINE) 1 % injection 20 mL (20 mL infiltration Given 08/17/242136) Procedures Digital Block Date/Time: 08/17/2024 9:14 PM Performed by: YANNI Middleton Authorized by: YANNI Middleton Consent: Consent obtained: Verbal Consent given by: Patient Risks, benefits, and alternatives were discussed: yes Risks discussed: Infection, nerve damage, swelling, intravascular injection, bleeding and allergic reaction Alternatives discussed: No treatment [place] protocol: Procedure explained and questions answered to patient or proxy's satisfaction: yes Imaging studies available: yes Patient identity confirmed: Verbally with patient Indications: Indications: Procedural anesthesia Location: Block location: Finger Finger blocked: R little finger Pre-procedure details: Neurovascular status: intact Skin preparation: Povidone-iodine Procedure details: Needle gauge: 25 G Anesthetic injected: Lidocaine 1% w/o epi Technique: Three-sided block (Volar) Injection procedure: Anatomic landmarks identified, anatomic landmarks palpated, introduced needle,incremental injection and negative aspiration for blood Post-procedure details: Outcome: Anesthesia achieved Procedure completion: Tolerated Splint Application Date/Time: 08/17/2024 9:32 PM Performed by: YANNI Middleton Authorized by: YANNI Middleton Consent: Consent obtained: Verbal Consent given by: Patient Alternatives discussed: No treatment [place] protocol: Procedure explained and questions answered to patient or proxy's satisfaction: yes Imaging studies available: yes Patient identity confirmed: Verbally with patient and arm band Pre-procedure details: Distal neurologic exam: Normal Distal perfusion: distal pulses strong Procedure details: Location: Finger Finger location: R small finger Splint type: Finger Supplies: Fiberglass Post-procedure details: Distal neurologic exam: Normal Distal perfusion: distal pulses strong Procedure completion: Tolerated Orthopedic Injury Treatment - Upper Extremity Date/Time: 08/17/2024 9:33 PM Performed by: YANNI Middleton Authorized by: YANNI Middleton Consent: Consent obtained: Verbal Consent given by: Patient Risks, benefits, and alternatives were discussed: yes Risks discussed: Recurrent dislocation, stiffness, restricted joint movement and irreducible dislocation Alternatives discussed: No treatment [place] protocol: Procedure explained and questions answered to patient or proxy's satisfaction: yes Imaging studies available: yes Patient identity confirmed: Verbally with patient and arm band Location: Location: Finger Finger location: R little finger Finger dislocation type: PIP Pre-procedure details: Pre-procedure imaging: X-ray Imaging findings: no joint dislocation and no fracture Distal perfusion: normal Sedation: Sedation type: None Anesthesia: Anesthesia method: None (see procedure note for digital block) Procedure details: Manipulation performed: yes Finger reduction method: Direct traction Reduction successful: yes Reduction confirmed with imaging: yes Immobilization: Splint Post-procedure details: Neurological function: normal Distal perfusion: normal Range of motion: normal Procedure completion: Tolerated Diagnosis 1. Closed dislocation of finger of right hand, initial encounter Disposition Discharge ED Prescriptions None Physician Attestation Electronically signed by YANNI Monique PA 08/17/242133 YANNI Middleton 08/17/242153 YANNI Middleton 08/17/242219 Cosigned by Jeffrey Hwang MD at 08/18/2024 11:38 PM EST documented in this encounter Plan of Treatment Scheduled Referrals Name Type Priority Associated Diagnoses Order Schedule Ambulatory referral to Orthopedic Outpatient Referral Routine 1 Occurrence s starting 08/17/2024 until 08/17/2025 documented as of this encounter Procedures Procedure Name Priority Date/Time Associated Diagnosis Comments XR FINGERS 2+ VIEWS RIGHT STAT 08/17/2024 9:48 PM EST ED ORTHOPEDIC INJURY TREATMENT - UPPER EXTREMITY Routine 08/17/2024 9:33 PM EST IA CLOSED TX IPJ DISLOCATION SINGLE W/MANIPULATION WO ANESTHESIA Routine 08/17/2024 9:33 PM EST ED SPLINT APPLICATION Routine 08/17/2024 9:32 PM EST IA APPLICATION SPLINT STATIC FINGER Routine 08/17/2024 9:32 PM EST ED DIGITAL BLOCK Routine 08/17/2024 9:14 PM EST XR FINGERS 2+ VIEWS RIGHT STAT 08/17/2024 8:15 PM EST documented in this encounter Results * XR Fingers 2+ Views Right (08/17/2024 9:48 PM EST) Anatomical Region Laterality Modality Upper Extremities, Fingers Right Radio graphic Imaging 08/18/2024 10:5 1 AM EST Impressions 08/18/2024 10:52 AM EST FINDINGS/IMPRESSION: Three views of the right 5th finger demonstrate successful reduction radiographs now in anatomic alignment with visible avulsion fracture at the volar aspect. ??Age-indeterminate avulsion fragment at the distal interphalangeal joint dorsally. ??Prominent soft tissue swelling. ??Osteopenia. -------- FINAL REPORT -------- Dictated By: Roslyn Haney Dictated Date: 08/18/2024 10:51 ET Assigned Physician: Roslyn Haney Reviewed and Electronically Signed By: Roslyn Haney Signed Date: 08/18/2024 10:52 ET Workstation ID: [id number] Transcribed By: Self Edit Transcribed Date: 08/18/2024 10:51 ET Narrative 08/18/2024 10:52 AM EST XR FINGERS 2+ VIEWS RIGHT INDICATION: post reduction TECHNIQUE: XR FINGERS 2+ VIEWS RIGHT COMPARISON: No priors available. Procedure Note Roslyn Haney MD - 08/18/2024 XR FINGERS 2+ VIEWS RIGHT INDICATION: post reduction TECHNIQUE: XR FINGERS 2+ VIEWS RIGHT COMPARISON: No priors available. IMPRESSION: FINDINGS/IMPRESSION: Three views of the right 5th finger demonstratesuccessful reduction radiographs now in anatomic alignment with visibleavulsion fracture at the volar aspect. Age-indeterminate avulsionfragment at the distal interphalangeal joint dorsally. Prominent softtissue swelling. Osteopenia. -------- FINAL REPORT -------- Dictated By: Roslyn Haney Dictated Date: 08/18/2024 10:51 ET Assigned Physician: Roslyn Haney Reviewed and Electronically Signed By: Roslyn Haney Signed Date: 08/18/2024 10:52 ET Workstation ID: [id number] Transcribed By: Self Edit Transcribed Date: 08/18/2024 10:51 ET us Jan LIAO IMG XR PROCEDURES Final R esult * IA CLOSED TX IPJ DISLOCATION SINGLE W/MANIPULATION WO ANESTHESIA, HC TREATMENT DISLOCATION (08/17/2024 9:33 PM EST) Narrative Jeffrey Hwang MD - 08/17/2024 9:33 PM EST YANNI Middleton ? 08/17/2024 10:20 PM Orthopedic Injury Treatment - Upper Extremity Date/Time: 08/17/2024 9:33 PM Performed by: YANNI Middleton Authorized by: YANNI Middleton ?? Consent: ??Consent obtained: ??Verbal ??Consent given by: ??Patient ??Risks, benefits, and alternatives were discussed: yes ?Risks discussed: ??Recurrent dislocation, stiffness, restricted joint movement and irreducible dislocation ??Alternatives discussed: ??No treatment [place] protocol: ??Procedure explained and questions answered to patient or proxy's satisfaction: yes ?Imaging studies available: yes ?Patient identity confirmed: ??Verbally with patient and arm band Location: ??Location: ??Finger ??Finger location: ??R little finger ??Finger dislocation type: PIP ?? Pre-procedure details: ??Pre-procedure imaging: ??X-ray ??Imaging findings: no joint dislocation and no fracture ?Distal perfusion: normal ?? Sedation: ??Sedation type: ??None Anesthesia: ??Anesthesia method: ??None (see procedure note for digital block) Procedure details: ??Manipulation performed: yes ?Finger reduction method: ??Direct traction ??Reduction successful: yes ?Reduction confirmed with imaging: yes ?Immobilization: ??Splint Post-procedure details: ??Neurological function: normal ?Distal perfusion: normal ?Range of motion: normal ?Procedure completion: ??Tolerated us Jan LIAO IN CLINIC/BEDSIDE ORDERAB LES Final Result * IA APPLICATION SPLINT STATIC FINGER, HC APPLICATION SPLINT/CAST/STRAP (08/17/2024 9:32 PM EST) Narrative Jeffrey Hwang MD - 08/17/2024 9:32 PM EST YANNI Middleton ? 08/17/2024 10:20 PM Splint Application Date/Time: 08/17/2024 9:32 PM Performed by: YANNI Middleton Authorized by: YANNI Middleton ?? Consent: ??Consent obtained: ??Verbal ??Consent given by: ??Patient ??Alternatives discussed: ??No treatment [place] protocol: ??Procedure explained and questions answered to patient or proxy's satisfaction: yes ?Imaging studies available: yes ?Patient identity confirmed: ??Verbally with patient and arm band Pre-procedure details: ??Distal neurologic exam: ??Normal ??Distal perfusion: distal pulses strong ?? Procedure details: ??Location: ??Finger ??Finger location: ??R small finger ??Splint type: ??Finger ??Supplies: ??Fiberglass Post-procedure details: ??Distal neurologic exam: ??Normal ??Distal perfusion: distal pulses strong ?Procedure completion: ??Tolerated us Jan LIAO IN CLINIC/BEDSIDE ORDERAB LES Final Result * ED DIGITAL BLOCK (08/17/2024 9:14 PM EST) Narrative Jeffrey Hwang MD - 08/17/2024 9:14 PM EST YANNI Middleton ? 08/17/2024 10:20 PM Digital Block Date/Time: 08/17/2024 9:14 PM Performed by: YANNI Middleton Authorized by: YANNI Middleton ?? Consent: ??Consent obtained: ??Verbal ??Consent given by: ??Patient ??Risks, benefits, and alternatives were discussed: yes ?Risks discussed: ??Infection, nerve damage, swelling, intravascular injection, bleeding and allergic reaction ??Alternatives discussed: ??No treatment [place] protocol: ??Procedure explained and questions answered to patient or proxy's satisfaction: yes ?Imaging studies available: yes ?Patient identity confirmed: ??Verbally with patient Indications: ??Indications: ??Procedural anesthesia Location: ??Block location: ??Finger ??Finger blocked: ??R little finger Pre-procedure details: ??Neurovascular status: intact ?Skin preparation: ??Povidone-iodine Procedure details: ??Needle gauge: ??25 G ??Anesthetic injected: ??Lidocaine 1% w/o epi ??Technique: ??Three-sided block (Volar) ??Injection procedure: ??Anatomic landmarks identified, anatomic landmarks palpated, introduced needle, incremental injection and negative aspiration for blood Post-procedure details: ??Outcome: ??Anesthesia achieved ??Procedure completion: ??Tolerated us Jan LIAO IN CLINIC/BEDSIDE ORDERAB LES Final Result * XR Fingers 2+ Views Right (08/17/2024 8:15 PM EST) Anatomical Region Laterality Modality Upper Extremities, Fingers Right Radio graphic Imaging 08/18/2024 10:5 6 AM EST Impressions 08/18/2024 10:57 AM EST FINDINGS/IMPRESSION: Dorsolateral dislocation of the 5th proximal interphalangeal joint. ??Diffuse osteopenia and significant degenerative changes at the 1st CMC. -------- FINAL REPORT -------- Dictated By: Roslyn Haney Dictated Date: 08/18/2024 10:56 ET Assigned Physician: Roslyn Haney Reviewed and Electronically Signed By: Roslyn Haney Signed Date: 08/18/2024 10:57 ET Workstation ID: [id number] Transcribed By: Self Edit Transcribed Date: 08/18/2024 10:56 ET Narrative 08/18/2024 10:57 AM EST XR FINGERS 2+ VIEWS RIGHT INDICATION: pain FALL YESTERDAY 5 TH FINGER PAIN TECHNIQUE: XR FINGERS 2+ VIEWS RIGHT COMPARISON: No priors available. Procedure Note Roslyn Haney MD - 08/18/2024 XR FINGERS 2+ VIEWS RIGHT INDICATION: pain FALL YESTERDAY 5 TH FINGER PAIN TECHNIQUE: XR FINGERS 2+ VIEWS RIGHT COMPARISON: No priors available. IMPRESSION: FINDINGS/IMPRESSION: Dorsolateral dislocation of the 5th proximalinterphalangeal joint. Diffuse osteopenia and significant degenerativechanges at the 1st CMC. -------- FINAL REPORT -------- Dictated By: Roslyn Haney Dictated Date: 08/18/2024 10:56 ET Assigned Physician: Roslyn Haney Reviewed and Electronically Signed By: Roslyn Haney Signed Date: 08/18/2024 10:57 ET Workstation ID: [id number] Transcribed By: Self Edit Transcribed Date: 08/18/2024 10:56 ET us Jeffrey Hwang MD IMG XR PROCEDURES Final R esult documented in this encounter Visit Diagnoses Diagnosis Closed dislocation of finger of right hand, initial encounter- Primary documented in this encounter Administered Medications Inactive Administered Medications - up to 3 most recent administrations Medication Order MAR Action Action Date Dose Rate Site lidocaine (XYLOCAINE) 1 % injection 20 mL 20 mL, infiltration, Once, On 08/17/24 at 0, For 1 dose Given 08/17/2024 9:37 PM EST 20 mL documented in this encounter Active and Recently Administered Medications Times are shown in EST. Scheduled Medication Order 08/15/2024 08/16/2024 08/17/2024 lidocaine (XYLOCAINE) 1 % injection 20 mL (COMPLETED) 20 mL, infiltration, Once, On 08/17/24 at 0, For 1 dose 2136 (Given - Provid er: Hermelindo Maguire RN - Comment: given by YANNI Flores) documented in this encounter Orders Medications Ordered That Marc ht Not Have Been Administered Count Last Ordered Date First Ordered Date lidocaine (XYLOCAINE) 1 % injection 20 mL 1 08/17/2024 documented in this encounter Care Teams Stake Driver Relationship Specialty Start Date End Date Betty Arevalo MD [address] [place] [address] PCP - General Internal Medicine 06/13/24 documented as of this encounter
--- OUTSIDE RECORDS SUMMARY | 2024-08-22 11:15 | XMS_ITS | Clinical Summary ---
Author Organization [address] [facility] Address [address] [place] [address] Phone Care Team Providers Care Senior Qualitative Researcher Name Role Phone Betty Arevalo MD Primary Care Provider [phone] Allergies No known active allergies Medications amLODIPine-olme sartan (DIONISIO) 5-20 mg per tablet Take 1 tablet by mouth 1 (one) time each day. 4 Active donepeziL (ARICEPT) 5 mg tablet Take 1 tablet (5 mg total) by mouth at bedtime. 4 Active furosemide (LASIX) 20 mg tablet Take 1 tablet (20 mg total) by mouth 1 (one) time per week. 4 each 4 Active aspirin 81 mg EC tablet Take 1 tablet (81 mg total) by mouth 1 (one) time each day. 30 each 4 07/25/19 25 lidocaine 4 % patch Apply 1 patch topically 1 (one) time each day. 30 each 4 07/25/19 25 Active Problems Problem Noted Date Diagnosed Date Syncope 06/23/2024 Encounters Date Type Department Care Team Description 08/22/2024 9:04 AM EST Hospital Encounter [facility] Xray [address] [place] [address] Pain 08/17/2024 9:00 PM EST - 08/17/2024 10:34 PM [facility] Emergency [facility] Emergency [address] [place] [phone] Closed dislocation of finger of right hand, initial encounter (Primary Dx) Discharge Disposition: Home or Self Care 06/23/2024 10:57 AM EST - 06/25/2024 3:47 PM [facility] [address] [place] [phone] Jessie Cheng DO Bukalo, Nermina, MD Alam, Aroosa, MD Surendran, MD Christine TIA (transient ischemic attack) (Primary Dx); Syncope, unspecified syncope type Discharge Disposition: Home-Health Care [facility] [place] 06/20/2024 5:45 PM EST - 06/20/2024 10:04 PM [facility] Emergency [facility] Emergency [address] [place] [phone] Sal Bautista MD Closed head injury, initial encounter (Primary Dx); Pulmonary nodule Discharge Disposition: Home or Self Care 06/13/2024 11:06 AM EST - 06/13/2024 2:30 PM [facility] Emergency [address] [place] [phone] Jessie Cheng DO Fall, initial encounter (Primary Dx) Discharge Disposition: Home or Self Care from Last 3 Months Surgical History Surgery Date Site/Laterality Comments OOPHORECTOMY TONSILLECTOMY ADENOIDECTOMY, BILATERAL MYRINGOTOMY AND TUBES SECTION Medical History Medical History Date Comments Hypertension Dementia (CMS/HCC) Hyperlipidemia Asthma Family History Medical History Relation Name Comments Dementia Brother Allergies Mother Dementia Sister Relation Name Status Comments Brother Mother Sister Social History Tobacco Use Types Packs/Day Years Used Date Smoking Tobacco: Former Cigarettes Smokeless Tobacco: Never Tobacco Cessation:Counseling Given: Not Answered Comments:Remote tobacco smoker Alcohol Use Standard Drinks/Week Comments Yes 0 [...] file Not on file Not on file Obstetrics History Last Filed Vital Signs Vital Sign Reading [...] Mass Index 34.75 08/17/2024 8:03 PM EST Plan of Treatment Health Maintenance Due Date Last Done Comments DTaP,Tdap,and Td Vaccines (1 - Tdap) 01/07/1959 Pneumococcal Vaccine: 50+ Years (1 of 1 - PCV) 01/07/1990 Zoster Vaccines (1 of 2) 01/07/1990 RSV Immunization Patients 60 + Years Old (1 - 1-dose 75+ series) 01/07/2015 Depression Screening 06/01/2022 Medicare Annual Wellness Visit 06/01/2022 Osteoporosis Screening (Bone Density Screening) 06/01/2022 Social Influencers of Health Screening 06/01/2022 COVID-19 Vaccine (3 - 2023-2 5 season) 2024 10/28/2020, 10/07/2020 Influenza Vaccine (#1) 2024 Hypertension/CHF/CAD Annual BMP Blood Test 06/24/2025 06/24/2024, 06/23/2024 Falls Risk Assessment 06/25/2025 06/25/2024 Cholesterol Screening (Lipid Panel) 06/24/2029 06/24/2024 HIB Vaccines Aged Out No longer eligi ble based on patient's age to complete this topic HPV Vaccines Aged Out No longer eligi ble based on patient's age to complete this topic Hepatitis A Vaccines Aged Out No long er eligible based on patient's age to complete this topic Hepatitis B Vaccines Aged Out No long er eligible based on patient's age to complete this topic IPV Vaccines Aged Out No longer eligi ble based on patient's age to complete this topic MMR Vaccines Aged Out No longer eligi ble based on patient's age to complete this topic Meningococcal ACWY Vaccine Aged Out N o longer eligible based on patient's age to complete this topic Meningococcal B Vacine Aged Out No lo nger eligible based on patient's age to complete this topic RSV Immunization Patients Under 20 months Aged Out No longer eligible b ased on patient's age to complete this topic Varicella Vaccines Aged Out No longer eligible based on patient's age to complete this topic Procedures Procedure Name Priority Date/Time Associated Diagnosis Comments XR HAND 3+ VIEWS RIGHT Routine 9:15 AM EST Pain XR FINGERS 2+ VIEWS RIGHT STAT 08/17/2024 9:48 PM EST ED ORTHOPEDIC INJURY TREATMENT - UPPER EXTREMITY Routine 08/17/2024 9:33 PM EST MA CLOSED TX IPJ DISLOCATION SINGLE W/MANIPULATION WO ANESTHESIA Routine 08/17/2024 9:33 PM EST ED SPLINT APPLICATION Routine 08/17/2024 9:32 PM EST MA APPLICATION SPLINT STATIC FINGER Routine 08/17/2024 9:32 PM EST ED DIGITAL BLOCK Routine 08/17/2024 9:14 PM EST XR FINGERS 2+ VIEWS RIGHT STAT 08/17/2024 8:15 PM EST MR BRAIN WO CONTRAST Routine 06/24/2024 2:36 PM EST TRANSTHORACIC ECHOCARDIOGRAM (TTE) COMPLETE W/ CONTRAST Routine 06/24/2024 9:42 AM EST Syncope, unspecified syncope type CBC WITH AUTO DIFFERENTIAL Routine 06/24/2024 6:16 AM EST HEMOGLOBIN A1C Routine 06/24/2024 6:16 AM EST LIPID PANEL WITH REFLEX TO DIRECT LDL Routine 06/24/2024 6:16 AM EST COMPREHENSIVE METABOLIC PANEL Routine 06/24/2024 6:16 AM EST CBC AND DIFFERENTIAL Routine 06/24/2024 6:16 AM EST VAS US DUPLEX LOWER EXT VENOUS BILAT Routine 06/23/2024 4:35 PM EST TIA (transient ischemic attack) B-TYPE NATRIURETIC PEPTIDE STAT 06/23/2024 2:35 PM EST VARGAS URINE CULTURE TUBE STAT 06/23/2024 1:04 PM EST URINALYSIS WITH REFLEX MICROSCOPIC AND CULTURE STAT 06/23/2024 1:04 PM EST URINALYSIS WITH REFLEX MICROSCOPIC AND CULTURE STAT 06/23/2024 1:04 PM EST XR CHEST 1 VIEW STAT 06/23/2024 12:23 PM EST CBC WITH AUTO DIFFERENTIAL STAT 06/23/2024 12:20 PM EST ACTIVATED PARTIAL THROMBOPLASTIN TIME STAT 06/23/2024 12:20 PM EST CBC AND DIFFERENTIAL STAT 06/23/2024 12:20 PM EST LACTATE STAT 06/23/2024 11:41 AM EST POC GLUCOSE STAT 06/23/2024 11:28 AM EST ECG 12-LEAD STAT 06/23/2024 11:25 AM EST POCT GLUCOSE BLOOD Routine 06/23/2024 11 :24 AM EST THYROID STIMULATING HORMONE STAT Add-on 06/23/2024 11:22 AM EST PROTHROMBIN TIME WITH INR STAT 06/23/2024 11:22 AM EST BASIC METABOLIC PANEL STAT 06/23/2024 11:[address] ANGIO HEAD/NECK STROKE WO AND/OR W CONTRAST STAT 06/23/2024 11:[address] HEAD STROKE WO CONTRAST STAT 06/23/2024 11:02 AM EST ECG ANNOTATED 06/23/2024 CT CHEST WO CONTRAST STAT 06/20/2024 8:[address] CERVICAL SPINE WO CONTRAST STAT 06/20/2024 8:[address] HEAD WO CONTRAST STAT 06/20/2024 8 :[address] CERVICAL SPINE WO CONTRAST STAT 06/13/2024 12:[address] HEAD WO CONTRAST STAT 06/13/2024 1 2:07 PM EST ECG OUTSIDE 06/13/2024 from Last 3 Months Results * XR Hand 3+ Views Right (08/22/2024 9:15 AM EST) Narrative RIS PACS/VR - 08/22/2024 9:15 AM EST This order has been auto-finalized and does not contain a result. us Jayjay Patel MD IMG XR PROCEDURES Final Result RIS PACS/VR * XR Fingers 2+ Views Right (08/17/2024 9:48 PM EST) Only the most recent of2 resultswithin the time period is included. Anatomical Region Laterality Modality Upper Extremities, Fingers [...] Signed Date: 08/18/2024 10:52 ET Workstation ID: [id number] Transcribed By: Self Edit Transcribed Date: 08/18/2024 [...] Signed Date: 08/18/2024 10:52 ET Workstation ID: [id number] Transcribed By: Self Edit Transcribed Date: 08/18/2024 10:51 ET us Jan LIAO IMG XR PROCEDURES Final R esult * MA CLOSED TX IPJ DISLOCATION SINGLE W/MANIPULATION WO [...] and irreducible dislocation ??Alternatives discussed: ??No treatment Falcon protocol: ??Procedure explained and questions answered to [...] IN CLINIC/BEDSIDE ORDERAB LES Final Result * MA APPLICATION SPLINT STATIC FINGER, HC APPLICATION SPLINT/CAST/STRAP (08/17/2024 9:32 PM EST) Narrative Jeffrey Hwang MD - 08/17/2024 9:32 PM EST YANNI Middleton ? 08/17/2024 10:20 PM Splint Application Date/Time: 08/17/2024 9:32 PM Performed by: YANNI Middleton Authorized by: YANNI Middleton ?? Consent: ??Consent obtained: ??Verbal ??Consent given by: ??Patient ??Alternatives discussed: ??No treatment Falcon protocol: ??Procedure explained and questions answered to [...] and allergic reaction ??Alternatives discussed: ??No treatment Falcon protocol: ??Procedure explained and questions answered to [...] IN CLINIC/BEDSIDE ORDERAB LES Final Result * MR Brain wo Contrast (06/24/2024 2:36 PM EST) Anatomical Region Laterality Modality Head and Neck Magnetic Resonan ce 06/24/2024 3:20 PM EST Impressions 06/24/2024 3:36 PM EST No acute intracranial findings. -------- FINAL REPORT -------- Dictated By: Agus Strong Dictated Date: 06/24/2024 15:20 ET Assigned Physician: Agus Strong Reviewed and Electronically Signed By: Agus Strong Signed Date: 06/24/2024 15:36 ET Workstation ID: [id number] Transcribed By: Self Edit Transcribed Date: 06/24/2024 15:20 ET Narrative 06/24/2024 3:36 PM EST MRI brain dated 06/24/2024 3:20 PM. HISTORY: Mental status change, unknown cause. COMPARISON: Head CT 06/23/2024. TECHNIQUE: Multiplanar multisequence MRI of the brain without intravenous contrast administration. FINDINGS: BRAIN: No diffusion abnormality. ??No mass or extra-axial fluid collection. ??No hydrocephalus. ??The major intracranial flow voids are preserved. Age commensurate ventricles and sulci. ??Foci of T2 prolongation in the supratentorial white matter are nonspecific but likely sequela of mild chronic microvascular ischemic disease. ORBITS: Lens implants. SINUSES/MASTOIDS: Mild mucosal thickening in the ethmoid air cells. ??Minimal mucosal thickening along the floor the maxillary antra. ??Right larger than left minerva bullosa. CALVARIUM: Mild hyperostosis frontalis interna. OTHER: The visualized skull base soft tissues are normal. ??Partially visible degenerative changes of the cervical spine. Procedure Note Agus Strong MD - 06/24/2024 MRI brain dated 06/24/2024 3:20 PM. HISTORY: Mental status change, unknown cause. COMPARISON: Head CT 06/23/2024. TECHNIQUE: Multiplanar multisequence MRI of the brain without intravenouscontrast administration. FINDINGS: BRAIN: No diffusion abnormality. No mass or extra-axial fluid collection.No hydrocephalus. The major intracranial flow voids are preserved. Agecommensurate ventricles and sulci. Foci of T2 prolongation in thesupratentorial white matter are nonspecific but likely sequela of mildchronic microvascular ischemic disease. ORBITS: Lens implants. SINUSES/MASTOIDS: Mild mucosal thickening in the ethmoid air cells.Minimal mucosal thickening along the floor the maxillary antra. Rightlarger than left minerva bullosa. CALVARIUM: Mild hyperostosis frontalis interna. OTHER: The visualized skull base soft tissues are normal. Partiallyvisible degenerative changes of the cervical spine. IMPRESSION: No acute intracranial findings. -------- FINAL REPORT -------- Dictated By: Agus Strong Dictated Date: 06/24/2024 15:20 ET Assigned Physician: Agus Strong Reviewed and Electronically Signed By: Agus Strong Signed Date: 06/24/2024 15:36 ET Workstation ID: [id number] Transcribed By: Self Edit Transcribed Date: 06/24/2024 15:20 ET Anat LIAO IMG MRI PROCEDURES Final Result * (ABNORMAL) TRANSTHORACIC ECHOCARDIOGRAM (TTE) COMPLETE W/ CONTRAST (06/24/2024 9:42 AM EST) Aortic Sinus Valsalva 2.9 cm CV PACS IVSD 0.9 0.6 - 0.9 cm CV PACS LVIDD 2.3(A) 3.8 - 5.2 cm CV PACS LVIDS 2.0(A) 2.2 - 3.5 cm CV PACS LVOT Diameter 1.9 cm CV PACS LVPWD 0.9 0.6 - 0.9 cm CV PACS MV E' Tissue Velocity Lateral 8 cm/s CV PACS MV E' Tissue Velocity Septal 7 cm/s CV PACS LVOT Area 2.8 cm2 CV PACS E Wave Deceleration Time 225 119 - 242 ms CV PACS MV Peak A Jovanni 0.85 m/s CV PACS MV Peak E Jovanni 1.02 m/s CV PACS RV S' 10 cm/s CV PACS E/E' Ratio Septal 15 CV PACS E/E' Ratio Averaged 14 CV PACS Relative Wall Thickness ratio 0.78 CV PACS FS 13 % CV PACS LV Mass 2D 48 g CV PACS LVIDD Index 1.20 cm/m2 CV PACS LVIDS Index 1.05 cm/m2 CV PACS E/A Ratio 1.2 CV PACS E/E' Ratio Lateral 13 CV PACS LV Mass Index 2D 25 g/m2 CV PACS BSA 1.98 m2 CV PACS Est. RA Pressure 3 mmHg CV PACS Anatomical Region Laterality Modality Ultrasound Narrative 06/24/2024 10:05 AM EST ?Left ventricle cavity size is normal.Left ventricle wall thickness is normal.No regional LV wall motion abnormalities noted. Left ventricular systolic function is in the normal range with an ejection fraction of 65-70%. ?Right ventricular systolic function is normal. ?No significant valve disease. Left Ventricle Left ventricle cavity size is normal. Wall thickness is normal. Systolic function is normal with an ejection fraction of 65-70%. There are no regional LV wall motion abnormalities. Right Ventricle Right ventricular end-systolic volume is normal. Systolic function is normal. Left Atrium Left atrium cavity size is normal. Right Atrium Right atrium cavity is normal. IVC/SVC Inferior vena cava structure is normal. Mitral Valve The leaflets are mildly thickened. There is mild annular calcification. There is no regurgitation or stenosis. Tricuspid Valve The leaflets exhibit normal excursion. There is no regurgitation or stenosis. Aortic Valve The aortic valve is trileaflet. The leaflets are mildly thickened. There is no regurgitation or stenosis. Pulmonic Valve Visualized portions of the pulmonic valve appear normal. There is no regurgitation or stenosis. Ascending Aorta The aorta appears normal in size. Pericardium Pericardium appears normal. There is no pericardial effusion. Study Details Overall the study quality was technically difficult. Definity contrast was given to enhance imaging. us Anat LIAO CV ECHO PROCEDURES Final Result * Lipid panel with reflex to direct LDL (06/24/2024 6:16 AM EST) Cholesterol 148 0 - 200 mg/dL LAB CHEMISTRY METHOD 06/24/2024 8:01 AM [facility] Triglycerides 130 0 - 150 mg/dL LAB CHEMISTRY METHOD 06/24/2024 8:01 AM [facility] HDL 54 >=40 mg/dL LAB CHEMISTRY METHOD 06/24/2024 8:01 AM [facility] LDL Calculated 68 0 - 100 mg/dL LAB CHEMISTRY METHOD 06/24/2024 8:01 AM [facility] VLDL Cholesterol Jose Luis 26 mg/dL LAB CHEMISTRY METHOD 06/24/2024 8:01 AM [facility] Non HDL Chol. (LDL+VLDL) 94 <145 mg/dL LAB CHEMISTRY METHOD 06/24/2024 8:01 AM [facility] Chol/HDL Ratio 2.7 0.0 - 4.4 LAB CHEMISTRY METHOD 06/24/2024 8:01 AM [facility] Blood Venous blood specimen / Unknown Venipuncture / Unknown 06/24/2024 6:16 AM EST 06/24/2024 6:43 AM EST us Anat LIAO LAB BLOOD ORDERABLES Final Resu lt [facility] [address] [place] [address], * (ABNORMAL) CBC auto differential (06/24/2024 6:16 AM EST) Only the most recent of2 resultswithin the time period is included. Pathologist [facility] WBC 6.2 4.8 - 10.8 K/[facility] LAB HEMETOLOGY METHOD 06/24/2024 6:52 AM [facility] RBC 3.70(L) 3.80 - 4.80 M/[facility] LAB HEMETOLOGY METHOD 06/24/2024 6:52 AM [facility] Hemoglobin 11.7 11.5 - 16.0 g/dL LAB HEMETOLOGY METHOD 06/24/2024 6:52 AM [facility] Hematocrit 35.4 35.0 - 47.0 % LAB HEMETOLOGY METHOD 06/24/2024 6:52 AM [facility] MCV 94.9 79.0 - 98.0 FL LAB HEMETOLOGY METHOD 06/24/2024 6:52 AM [facility] MCH 31.4 27.0 - 32.0 pcg LAB HEMETOLOGY METHOD 06/24/2024 6:52 AM [facility] MCHC 33.1 32.0 - 37.0 g/dL LAB HEMETOLOGY METHOD 06/24/2024 6:52 AM [facility] RDW 12.6 11.0 - 15.0 % LAB HEMETOLOGY METHOD 06/24/2024 6:52 AM [facility] Platelets 274 130 - 400 K/mcL LAB HEMETOLOGY METHOD 06/24/2024 6:52 AM [facility] MPV 10.8 7.0 - 11.0 FL LAB HEMETOLOGY METHOD 06/24/2024 6:52 AM [facility] NRBC 0.0 <1.0 % LAB HEMETOLOGY METHOD 06/24/2024 6:52 AM [facility] NRBC Absolute 0.00 <0.10 K/mcL LAB HEMETOLOGY METHOD 06/24/2024 6:52 AM [facility] Neutrophils Relative 48.7 % LAB HEMETOLOGY METHOD 06/24/2024 6:52 AM [facility] Lymphocytes Relative 33.0 % LAB HEMETOLOGY METHOD 06/24/2024 6:52 AM [facility] Monocytes Relative 9.9 % LAB HEMETOLOGY METHOD 06/24/2024 6:52 AM EST [facility] Eosinophils Relative 7.1 % LAB HEMETOLOGY METHOD 06/24/2024 6:52 AM [facility] Basophils Relative 1.0 % LAB HEMETOLOGY METHOD 06/24/2024 6:52 AM [facility] Immature Granulocytes Relative 0.3 % LAB HEMETOLOGY METHOD 06/24/2024 6:52 AM EST [facility] Neutrophils Absolute 3.01 1.50 - 7.00 K/mcL LAB HEMETOLOGY METHOD 06/24/2024 6:52 AM EST [facility] Lymphocytes Absolute 2.04 1.00 - 5.00 K/mcL LAB HEMETOLOGY METHOD 06/24/2024 6:52 AM [facility] Monocytes Absolute 0.61 0.20 - 1.00 K/mcL LAB HEMETOLOGY METHOD 06/24/2024 6:52 AM EST [facility] Eosinophils Absolute 0.44 0.00 - 0.50 K/mcL LAB HEMETOLOGY METHOD 06/24/2024 6:52 AM EST [facility] Basophils Absolute 0.06 0.00 - 0.20 K/mcL LAB HEMETOLOGY METHOD 06/24/2024 6:52 AM [facility] Immature Granulocytes Absolute 0.02 0.00 - 0.03 K/mcL LAB HEMETOLOGY METHOD 06/24/2024 6:52 AM EST [facility] Blood Venous blood specimen / Unknown Venipuncture / Unknown 06/24/2024 6:16 AM EST 06/24/2024 6:43 AM EST us Anat LIAO LAB BLOOD ORDERABLES Final Resu lt [facility] [address] [place] [address], * Hemoglobin A1c (06/24/2024 6:16 AM EST) Pathologist [facility] Hemoglobin A1C 5.9 <6.5 % LAB CHEMISTRY METHOD 06/24/2024 1:24 PM [facility] Mean Bld Glu Estim. 123 mg/dL LAB CHEMISTRY METHOD 06/24/2024 1:24 PM [facility] Blood Venous blood specimen / Unknown Venipuncture / Unknown 06/24/2024 6:16 AM EST 06/24/2024 6:43 AM EST us Anat LIAO LAB BLOOD ORDERABLES Final Resu lt [facility] [address] [place] [address], [place] [phone] * (ABNORMAL) Comprehensive metabolic panel (06/24/2024 6:16 AM EST) [facility] Sodium 142 133 - 145 mmol/L LAB CHEMISTRY METHOD 06/24/2024 8:01 AM [facility] Potassium 4.3 3.5 - 5.5 mmol/L LAB CHEMISTRY METHOD 06/24/2024 8:01 AM [facility] Chloride 108 96 - 110 mmol/L LAB CHEMISTRY METHOD 06/24/2024 8:01 AM [facility] CO2 31 21 - 32 mmol/L LAB CHEMISTRY METHOD 06/24/2024 8:01 AM [facility] Anion Gap 3 3 - 11 LAB CHEMISTRY METHOD 06/24/2024 8:01 AM [facility] Glucose 104(H) 70 - 100 mg/dL LAB CHEMISTRY METHOD 06/24/2024 8:01 AM [facility] BUN 16 5 - 25 mg/dL LAB CHEMISTRY METHOD 06/24/2024 8:01 AM [facility] Creatinine 0.98 0.50 - 1.10 mg/dL LAB CHEMISTRY METHOD 06/24/2024 8:01 AM [facility] eGFR 57(L) >=60 mL/min/1. 73m2 LAB CHEMISTRY METHOD 06/24/2024 8:01 AM [facility] Comment:Calculation based on the??Chronic Kidney Disease Epidemiology Collaboration (CKD-EPI) equation refit??without adjustment for race. BUN/Creatinine Ratio 16.3 LAB CHEMISTRY METHOD 06/24/2024 8:01 AM [facility] Calcium 9.3 8.5 - 10.5 mg/dL LAB CHEMISTRY METHOD 06/24/2024 8:01 AM [facility] AST (SGOT) 24 10 - 42 unit/L LAB CHEMISTRY METHOD 06/24/2024 8:01 AM [facility] ALT (SGPT) 24 10 - 60 unit/L LAB CHEMISTRY METHOD 06/24/2024 8:01 AM [facility] Alkaline Phosphatase 76 42 - 121 unit/L LAB CHEMISTRY METHOD 06/24/2024 8:01 AM [facility] Total Protein 5.8(L) 6.0 - 8.0 g/dL LAB CHEMISTRY METHOD 06/24/2024 8:01 AM [facility] Albumin 3.2 3.2 - 5.0 g/dL LAB CHEMISTRY METHOD 06/24/2024 8:01 AM [facility] Total Bilirubin 0.8 0.0 - 1.4 mg/dL LAB CHEMISTRY METHOD 06/24/2024 8:01 AM [facility] Blood Venous blood specimen / Unknown Venipuncture / Unknown 06/24/2024 6:16 AM EST 06/24/2024 6:43 AM EST us Anat LIAO LAB BLOOD ORDERABLES Final Resu lt [facility] [address] [place] [address], * Vascular US duplex lower extremity venous bilateral (06/23/2024 4:35 PM EST) Anatomical Region Laterality Modality Vascular, Abdomen Ultrasound 06/24/2024 5:01 AM EST Impressions 06/24/2024 5:02 AM EST No deep vein thrombosis identified in the bilateral lower extremities -------- FINAL REPORT -------- Dictated By: Rimma Alcazar Dictated Date: 06/24/2024 05:01 ET Assigned Physician: Rimma Alcazar Reviewed and Electronically Signed By: Rimma Alcazar Signed Date: 06/24/2024 05:02 ET Workstation ID: [id number] Transcribed By: Self Edit Transcribed Date: 06/24/2024 05:01 ET Narrative 06/24/2024 5:02 AM EST INDICATION: edema bilateral leg R>L COMPARISON: None TECHNIQUE: Ultrasound of the ??bilateral lower extremity veins is performed using color-flow Doppler, graded compression with B mode Doppler with spectral analysis FINDINGS: The common femoral, superficial femoral and popliteal veins compress normally throughout their length. Normal response to distal augmentation is seen with calf compression. Included calf vessels are patent on color Doppler. ??A left popliteal cyst is noted measuring 4.4 x 1.4 x 2.3 cm. Procedure Note Rimma Alcazar MD - 06/24/2024 INDICATION: edema bilateral leg R>L COMPARISON: None TECHNIQUE: Ultrasound of the bilateral lower extremity veins is performedusing color-flow Doppler, graded compression with B mode Doppler withspectral analysis FINDINGS: The common femoral, superficial femoral and popliteal veinscompress normally throughout their length. Normal response to distalaugmentation is seen with calf compression. Included calf vessels arepatent on color Doppler. A left popliteal cyst is noted measuring 4.4 x1.4 x 2.3 cm. IMPRESSION: No deep vein thrombosis identified in the bilateral lower extremities -------- FINAL REPORT -------- Dictated By: Rimma Alcazar Dictated Date: 06/24/2024 05:01 ET Assigned Physician: Rimma Alcazar Reviewed and Electronically Signed By: Rimma Alcazar Signed Date: 06/24/2024 05:02 ET Workstation ID: [id number] Transcribed By: Self Edit Transcribed Date: 06/24/2024 05:01 ET us Anat LIAO CV VASCULAR PROCEDURES Final Re sult * B-type natriuretic peptide (06/23/2024 2:35 PM EST) BNP 65 <=100 pcg/mL LAB CHEMISTRY METHOD 06/23/2024 3:48 PM [facility] Blood Venous blood specimen / Unknown Venipuncture / Unknown 06/23/2024 2:35 PM EST 06/23/2024 3:10 PM EST us Manjeet Tyler MD LAB BLOOD ORDERABLES Final Res ult [facility] [address] [place] [address], [place] [phone] * Urinalysis with reflex microscopic and culture (06/23/2024 1:04 PM EST) [facility] Specific [place] Urine 1.029 1.003 - 1.030 LAB URINALYSIS - AUTOMATED METHOD 06/23/2024 1:21 PM [facility] pH, Urine 7.5 5.0 - 8.0 pH LAB URINALYSIS - AUTOMATED METHOD 06/23/2024 1:21 PM [facility] Leukocytes, Urine Negative Negative LAB URINALYSIS - AUTOMATED METHOD 06/23/2024 1:21 PM [facility] Nitrite, Urine Negative Negative LAB URINALYSIS - AUTOMATED METHOD 06/23/2024 1:21 PM [facility] Protein, Urine Negative <=Trace mg/dL LAB URINALYSIS - AUTOMATED METHOD 06/23/2024 1:21 PM [facility] Glucose, Urine Negative Negative mg/dL LAB URINALYSIS - AUTOMATED METHOD 06/23/2024 1:21 PM [facility] Ketones, Urine Negative Negative mg/dL LAB URINALYSIS - AUTOMATED METHOD 06/23/2024 1:21 PM EST [facility] Urobilinogen, Urine 0.2 0.2 - 1.0 mg/dL LAB URINALYSIS - AUTOMATED METHOD 06/23/2024 1:21 PM [facility] Bilirubin, Urine Negative Negative LAB URINALYSIS - AUTOMATED METHOD 06/23/2024 1:21 PM [facility] Blood, Urine Negative Negative LAB URINALYSIS - AUTOMATED METHOD 06/23/2024 1:21 PM [facility] Urine Urine specimen obtained by clean catch procedure / Unknown Non-blood Collection / Unknown 06/23/2024 1:04 PM EST 06/23/2024 1:14 PM EST us Riteshcarla Joni Harry LAB URINE ORDERABLES Preeti l Result [facility] [address] [place] [address], [place] [phone] * Vargas urine culture tube (06/23/2024 1:04 PM EST) Extra Tube Hold for add-ons. 06/23/2024 3:01 PM EST [facility] Comment:Auto resulted. Urine Urine specimen obtained by clean catch procedure / Unknown Non-blood Collection / Unknown 06/23/2024 1:04 PM EST 06/23/2024 1:14 PM EST us [employer]la Quinones Harry DO LAB URINE ORDERABLES Preeti l Result [facility] [address] [place] [address], [place] [phone] * XR Chest 1 View (06/23/2024 12:23 PM EST) Anatomical Region Laterality Modality Body Radiographic Nory ging 06/23/2024 12:2 7 PM EST Impressions 06/23/2024 12:28 PM EST No focal pneumonia or alveolar edema. -------- FINAL REPORT -------- Dictated By: Berto Bond Dictated Date: 06/23/2024 12:27 ET Assigned Physician: Berto Bond Reviewed and Electronically Signed By: Berto Bond Signed Date: 06/23/2024 12:28 ET Workstation ID: [id number] Transcribed By: Self Edit Transcribed Date: 06/23/2024 12:27 ET Narrative 06/23/2024 12:28 PM EST EXAMINATION: CHEST CLINICAL INFORMATION: Possible stroke. Neurologic deficit. COMPARISON: Frontal view 04/22/2024 TECHNIQUE: Frontal portable sitting view of the chest FINDINGS: There is some kyphosis and rotation to the right. Devices overlie the patient. There is some tortuosity of the aorta. The cardiac size and antione are within normal limits. Mild generalized interstitial prominence. No focal pneumonia or large area of atelectasis. No pleural fluid or pneumothorax. There are osteophytes in the spine. Chronic appearing rib deformities Procedure Note Berto Bond MD - 06/23/2024 EXAMINATION: CHEST CLINICAL INFORMATION: Possible stroke. Neurologic deficit. COMPARISON: Frontal view 04/22/2024 TECHNIQUE: Frontal portable sitting view of the chest FINDINGS: There is some kyphosis and rotation to the right. Devices overlie thepatient. There is some tortuosity of the aorta. The cardiac size and antione arewithin normal limits. Mild generalized interstitial prominence. No focalpneumonia or large area of atelectasis. No pleural fluid or pneumothorax. There are osteophytes in the spine. Chronic appearing rib deformities IMPRESSION: No focal pneumonia or alveolar edema. -------- FINAL REPORT -------- Dictated By: Berto Bond Dictated Date: 06/23/2024 12:27 ET Assigned Physician: Berto Bond Reviewed and Electronically Signed By: Berto Bond Signed Date: 06/23/2024 12:28 ET Workstation ID: [id number] Transcribed By: Self Edit Transcribed Date: 06/23/2024 12:27 ET us Jessie Cheng DO IMG XR PROCEDURES Final R esult * Activated partial thromboplastin time (06/23/2024 12:20 PM EST) [facility] aPTT 34.7 24.1 - 39.3 sec LAB COAGULATION METHOD 06/23/2024 1:37 PM EST [facility] Blood Venous blood specimen / Unknown Venipuncture / Unknown 06/23/2024 12:20 PM EST 06/23/2024 1:13 PM EST us Jessie Quinones Harrytito Cheng DO LAB BLOOD ORDERABLES Preeti l Result Performing Organization Address City/[facility]/ZIP Co de Phone Number [facility] [address] [place] [address], [place] [phone] * Lactate (06/23/2024 11:41 AM EST) [facility] Lactate 1.5 0.4 - 2.0 mmol/L LAB CHEMISTRY METHOD 06/23/2024 12:12 PM EST [facility] Blood Venous blood specimen / Unknown Venipuncture / Unknown 06/23/2024 11:41 AM EST 06/23/2024 11:50 AM EST us Awadcarla Joni Harry Prosper SMITH LAB BLOOD ORDERABLES Preeti l Result [facility] [address] [place] [address], [place] [phone] * (ABNORMAL) POC glucose manually resulted (06/23/2024 11:28 AM EST) [facility] Glucose POC 118(A) 70 - 110 mg/dL Blood Capillary blood specimen / Unknown 06/23/2024 11:28 AM EST Jessie Ho Harry DO POINT OF CARE TEST ENTER/ EDIT ORDERABLES Final Result * ECG 12 lead (06/23/2024 11:25 AM EST) Ventricular Rate ECG 67 BPM GEMUSE Atrial Rate 67 BPM GEMUSE P-R Interval 208 ms GEMUSE QRS Duration 68 ms GEMUSE Q-T Interval 406 ms GEMUSE QTc 429 ms GEMUSE P Wave [place] 67 degrees GEMUSE R [place] 24 degrees GEMUSE T [place] 48 degrees GEMUSE ECG Interpretation Normal sinus rhythm Normal ECG When compared with ECG of 22-APR-2024 17:48, No significant change was found Confirmed by DOMINIC MATUTE ([id number]) on 06/24/2024 1:17:24 PM GEMUSE 06/23/2024 11:2 5 AM EST 06/24/2024 1:17 PM EST us Jessie Cheng DO ECG ORDERABLES Final Res ult Performing Organization Address City/[facility]/ZIP Co de Phone Number GEMUSE * (ABNORMAL) POCT Glucose, blood (06/23/2024 11:24 AM EST) [facility] Glucose POCT 118(H) 70 - 100 mg/dL 06/23/2024 11:25 AM EST [facility] Blood Capillary blood specimen / Unknown 06/23/2024 11:24 AM EST 06/23/2024 11:26 AM EST us Jessie Cheng DO LAB POINT OF CARE TEST DOCKED DEVICE UNSOLICITED RESULTS Final Result Performing Organization Address City/[facility]/ZIP Co de Phone Number [facility] [address] [place] [address], [place] [phone] * (ABNORMAL) Prothrombin time with INR (06/23/2024 11:22 AM EST) Pathologist [facility] Protime 10.0(L) 10.6 - 13.9 sec LAB COAGULATION METHOD 06/23/2024 12:07 PM EST [facility] INR 0.8 LAB COAGULATION METHOD 06/23/2024 12:07 PM EST [facility] Blood Venous blood specimen / Unknown Venipuncture / Unknown 06/23/2024 11:22 AM EST 06/23/2024 11:49 AM EST Jessie Cheng LAB BLOOD ORDERABLES Preeti l Result Performing Organization Address [facility]/ZIP Co de Phone Number [facility] [address] [place] [address], [place] [phone] * Thyroid stimulating hormone (TSH) (06/23/2024 11:22 AM EST) [facility] TSH 3.34 0.40 - 4.00 mcIU/mL LAB CHEMISTRY METHOD 06/23/2024 12:53 PM EST [facility] Blood Venous blood specimen / Unknown Venipuncture / Unknown 06/23/2024 11:22 AM EST 06/23/2024 11:49 AM EST Jessie Cheng LAB BLOOD ORDERABLES Preeti l Result Performing Organization Address [facility] Co de Phone Number [facility] [address] [place] [address], [place] [phone] * (ABNORMAL) Basic metabolic panel (06/23/2024 11:22 AM EST) [facility] Sodium 137 133 - 145 mmol/L LAB CHEMISTRY METHOD 06/23/2024 12:33 PM [facility] Potassium 4.2 3.5 - 5.5 mmol/L LAB CHEMISTRY METHOD 06/23/2024 12:33 PM [facility] Chloride 105 96 - 110 mmol/L LAB CHEMISTRY METHOD 06/23/2024 12:33 PM [facility] CO2 28 21 - 32 mmol/L LAB CHEMISTRY METHOD 06/23/2024 12:33 PM [facility] Anion Gap 4 3 - 11 LAB CHEMISTRY METHOD 06/23/2024 12:33 PM [facility] Glucose 104(H) 70 - 100 mg/dL LAB CHEMISTRY METHOD 06/23/2024 12:33 PM [facility] BUN 17 5 - 25 mg/dL LAB CHEMISTRY METHOD 06/23/2024 12:33 PM [facility] Creatinine 1.05 0.50 - 1.10 mg/dL LAB CHEMISTRY METHOD 06/23/2024 12:33 PM [facility] eGFR 53(L) >=60 mL/min/1. 73m2 LAB CHEMISTRY METHOD 06/23/2024 12:33 PM [facility] Comment:Calculation based on the??Chronic Kidney Disease Epidemiology Collaboration (CKD-EPI) equation refit??without adjustment for race. BUN/Creatinine Ratio 16.2 LAB CHEMISTRY METHOD 06/23/2024 12:33 PM [facility] Calcium 9.6 8.5 - 10.5 mg/dL LAB CHEMISTRY METHOD 06/23/2024 12:33 PM [facility] Blood Venous blood specimen / Unknown Venipuncture / Unknown 06/23/2024 11:22 AM EST 06/23/2024 11:49 AM EST us Jessie Cheng DO LAB BLOOD ORDERABLES Preeti l Result [facility] [address] [place] [address], [place] [phone] * CT Head Stroke wo Contrast (06/23/2024 11:02 AM EST) Anatomical Region Laterality Modality Head and Neck Computed Tomogra phy 06/23/2024 11:0 6 AM EST Impressions 06/23/2024 11:12 AM EST No acute intracranial hemorrhage. No acute territorial infarct or mass. ?? Preliminary interpretation by telephone to Dr. Casanova at 1110 hours on 06/23/2024 -------- FINAL REPORT -------- Dictated By: Berto Bond Dictated Date: 06/23/2024 11:06 ET Assigned Physician: Berto Bond Reviewed and Electronically Signed By: Berto Bond Signed Date: 06/23/2024 11:12 ET Workstation ID: [id number] Transcribed By: Self Edit Transcribed Date: 06/23/2024 11:06 ET Narrative 06/23/2024 11:12 AM EST EXAMINATION: CT HEAD WITHOUT CONTRAST CLINICAL INFORMATION: Neural deficit. ??Acute stroke suspected COMPARISON: Portions of a previous head CT 06/20/2024 ?? TECHNIQUE: Multidetector CT. Examination of the head. Examination of the head without IV contrast. Reformatting in the coronal and sagittal planes. DLP: 924 mGy-cm Dose optimization was performed including the use of low-dose iterative reconstruction technique with automatic exposure control based on patient size. Type of contrast: None Volume of IV contrast: None Volume of contrast discarded: 0 mL FINDINGS: Intracranial hemorrhage: No evidence of recent intracranial hemorrhage. Ventricles, cisterns and sulci: ??There is no midline shift. The ventricle cisterns and sulci appear within normal limits. Extra-axial mass or collections: No extra-axial mass or collection ?? Intra-axial mass: No mass demonstrated Acute infarct: No acute territorial infarct demonstrated. ?? White matter disease: No significant white matter disease demonstrated. ?? Vargas-white interface: No disruption of the vargas-white interface. ?? Paranasal sinuses: The visualized paranasal sinuses are well pneumatized and aerated ?? Osseous/Scalp[: ??No focal bony lesion Procedure Note Berto Bond MD - 06/23/2024 EXAMINATION: CT HEAD WITHOUT CONTRAST CLINICAL INFORMATION: Neural deficit. Acute stroke suspected COMPARISON: Portions of a previous head CT 06/20/2024 TECHNIQUE: Multidetector CT. Examination of the head. Examination of the head without IV contrast. Reformatting in the coronal and sagittal planes. DLP: 924 mGy-cm Dose optimization was performed including the use of low-dose iterativereconstruction technique with automatic exposure control based on patientsize. Type of contrast: None Volume of IV contrast: None Volume of contrast discarded: 0 mL FINDINGS: Intracranial hemorrhage: No evidence of recent intracranial hemorrhage. Ventricles, cisterns and sulci: There is no midline shift. The ventriclecisterns and sulci appear within normal limits. Extra-axial mass or collections: No extra-axial mass or collection Intra-axial mass: No mass demonstrated Acute infarct: No acute territorial infarct demonstrated. White matter disease: No significant white matter disease demonstrated. Vargas-white interface: No disruption of the vargas-white interface. Paranasal sinuses: The visualized paranasal sinuses are well pneumatizedand aerated Osseous/Scalp[: No focal bony lesion IMPRESSION: No acute intracranial hemorrhage. No acute territorial infarct or mass. Preliminary interpretation by telephone to Dr. Casanova at 1110 hours on06/23/2024 -------- FINAL REPORT -------- Dictated By: Berot Bodn Dictated Date: 06/23/2024 11:06 ET Assigned Physician: Berto Bond Reviewed and Electronically Signed By: Berto Bond Signed Date: 06/23/2024 11:12 ET Workstation ID: [id number] Transcribed By: Self Edit Transcribed Date: 06/23/2024 11:06 ET Jessie Cheng DO IMG CT PROCEDURES Final R esult * CT Angio Head/Neck Stroke wo and/or w Contrast (06/23/2024 11:02 AM EST) Anatomical Region Laterality Modality Head and Neck Computed Tomogra phy 06/23/2024 11:3 1 AM EST Impressions 06/23/2024 11:31 AM EST Impression: The vasculature of the head and neck is widely patent. No acute process. This document has been electronically signed by: David Be MD on 06/23/2024 11:31:47 Narrative 06/23/2024 11:[address] angiography head and neck with contrast. 3D Postprocessing. Comparison: CT - CT HEAD WO CONTRAST - 06/20/24 20:12 EST Findings: CTA head: There is no aneurysms, dissection, significant stenosis or large vessel occlusion. Anterior and posterior circulation appear widely patent. No abnormal postcontrast enhancement identified. CTA neck: There is a normal branching pattern of the aortic arch. There is mild soft and calcific atherosclerotic disease but there is no significant stenosis, dissection or occlusion involving the bilateral common, internal or external carotid arteries. The vertebral arteries are also widely patent. Lung apices demonstrate no suspicious abnormality. The thyroid gland is mildly heterogeneous. Degenerative changes seen within the spine. Procedure Note David Be MD - 06/23/2024 CT angiography head and neck with contrast. 3D Postprocessing. Comparison: CT - CT HEAD WO CONTRAST - 06/20/24 20:12 EST Findings: CTA head: There is no aneurysms, dissection, significant stenosis or large vessel occlusion. Anterior and posterior circulation appear widely patent. No abnormal postcontrast enhancement identified. CTA neck: There is a normal branching pattern of the aortic arch. There is mild soft and calcific atherosclerotic disease but there is no significant stenosis, dissection or occlusion involving the bilateral common, internal or external carotid arteries. The vertebral arteries are also widely patent. Lung apices demonstrate no suspicious abnormality. The thyroid gland is mildly heterogeneous. Degenerative changes seen within the spine. IMPRESSION: Impression: The vasculature of the head and neck is widely patent. No acute process. This document has been electronically signed by: David Be MD on 06/23/2024 11:31:47 Jessie Cheng DO IMG CT PROCEDURES Final R esult * ECG-Annotated (06/23/2024) Provider Onbase MD ECG ORDERABLES Final Result * CT Cervical Spine wo Contrast (06/20/2024 8:24 PM EST) Only the most recent of2 resultswithin the time period is included. Anatomical Region Laterality Modality Spine, C-spine Computed Tomogra phy 06/20/2024 8:50 PM EST Impressions 06/20/2024 8:50 PM EST Impression: No acute fractures. This document has been electronically signed by: Srinivas Atwood MD on 06/20/2024 20:50:34 Narrative 06/20/2024 8:[address] of the cervical spine without contrast. No comparison. Findings: No acute fractures are seen. There are prominent degenerative changes. Reversal of the normal lordosis is present. Mild malalignment is likely degenerative in nature. Procedure Note Nicholas Atwood MD - 06/20/2024 CT of the cervical spine without contrast. No comparison. Findings: No acute fractures are seen. There are prominent degenerative changes. Reversal of the normal lordosis is present. Mild malalignment is likely degenerative in nature. IMPRESSION: Impression: No acute fractures. This document has been electronically signed by: Srinivas Atwood MD on 06/20/2024 20:50:34 [facility] B Michele DAVIDSON IM CT PROCEDURES Final Result * CT Chest wo Contrast (06/20/2024 8:24 PM EST) Anatomical Region Laterality Modality Body Computed Tomogra phy 06/20/2024 8:56 PM EST Impressions 06/20/2024 8:56 PM EST Impression: No acute injury is seen. Indeterminate 6 mm pulmonary nodule recommend comparison to previous or follow-up. This document has been electronically signed by: Srinivas Atwood MD on 06/20/2024 20:56:47 Narrative 06/20/2024 8:[address] of the chest without contrast. No comparison. Findings: There is no pleural or pericardial effusion. The ascending aorta is upper limits of normal in diameter. No pneumothorax is identified. There is no focal consolidation. Mild motion artifact is present. There is an indeterminate 6 mm left upper lobe pulmonary nodule image 39. No acute fractures are identified. Procedure Note Nicholas Atwood MD - 06/20/2024 CT of the chest without contrast. No comparison. Findings: There is no pleural or pericardial effusion. The ascending aorta is upper limits of normal in diameter. No pneumothorax is identified. There is no focal consolidation. Mild motion artifact is present. There is an indeterminate 6 mm left upper lobe pulmonary nodule image39. No acute fractures are identified. IMPRESSION: Impression: No acute injury is seen. Indeterminate 6 mm pulmonary nodule recommend comparison to previous or follow-up. This document has been electronically signed by: Srinivas Atwood MD on 06/20/2024 20:56:47 Salshabana Bautista MD IMG CT PROCEDURES Final Result * CT Head wo Contrast (06/20/2024 8:24 PM EST) Only the most recent of2 resultswithin the time period is included. Anatomical Region Laterality Modality Head and Neck Computed Tomogra phy 06/20/2024 8:51 PM EST Impressions 06/20/2024 8:51 PM EST Impression: No acute intracranial abnormality is identified. This document has been electronically signed by: Srinivas Atwood MD on 06/20/2024 20:51:11 Narrative 06/20/2024 8:[address] of the head without contrast. No comparison. Findings: There is mild diffuse atrophy. No acute hemorrhage or infarct is seen. No masses are identified and there is no hydrocephalus. There is no mass-effect. Procedure Note Nicholas Atwood MD - 06/20/2024 CT of the head without contrast. No comparison. Findings: There is mild diffuse atrophy. No acute hemorrhage or infarct is seen.No masses are identified and there is no hydrocephalus. There is no mass-effect. IMPRESSION: Impression: No acute intracranial abnormality is identified. This document has been electronically signed by: Srinivas Atwood MD on 06/20/2024 20:51:11 Sal Bautista MD IMG CT PROCEDURES Final Result * ECG-Outside (06/13/2024) Provider Onjessica DAVIDSON ECG ORDERABLES Final Result from Last 3 Months Insurance [employer] on file Advance Directives Documents on File Type Date Recorded Patient Dietetic Intern Expl anation Advance Directives and Living Will 06/27/2024 10:01 AM Advance Directives and Living Will 06/25/2024 11:57 AM Bennett [place] Health Care Proxy Advance Directives and Living Will 06/24/2024 3:50 PM Power of Medical Staff Director 06/24/2024 9:37 AM DURA BLE POA Advance Directives and Living Will 06/21/2024 10:40 AM Advance Directives and Living Will 06/14/2024 12:38 PM DURABLE POA Health Care Decision (hx) 04/25/2024 ADVANCE DIRECTIVE Health Care Decision (hx) 04/25/2024 ADVANCE DIRECTIVE Health Care Decision (hx) 02/27/2024 ADVANCE DIRECTIVE Health Care Decision (hx) 02/27/2024 ADVANCE DIRECTIVE Health Care Decision (hx) 02/27/2024 ADVANCE DIRECTIVE * Full Code - Default (Latest Code Status on File) Date Activated Date Inactivated Comments 06/23/2024 2:06 PM 06/25/2024 5:58 PM This is or abiola is used when code status has not been discussed with the patient, or code status is otherwise unknown/unconfirmed To update the patient's code status, place a code status order. Do not modify or discontinue any currently active code status orders. Healthcare Agents on File Name Relationship Healthcare Agent Relationshi p Communication Bennett [place] Son Health Care Agent Jan Garner Son First Alternate Health Care Agent Christian Garner Son Second Alternate Health Care Agent Care Teams Senior Qualitative Researcher Relationship Specialty Start Date End Date Betty Arevalo MD [address] [place] [address] PCP - General Internal Medicine 06/13/24
== END 2024-08-22 10:53 | disposition home or self-care (01) ==
PROVIDERS: PCP Internal Medicine; Visit Provider Internal Medicine
DX: R91.1 Solitary pulmonary nodule (principal); T17.908A Unspecified foreign body in respiratory tract, part unspecified causing other injury, initial encounter; I10 Essential (primary) hypertension; G20.A1 Parkinson's disease without dyskinesia, without mention of fluctuations

== ENCOUNTER → 2024-08-22 10:09 | Outpatient (BNVA) | payer MEDICARE, SELFPAY | PROVIDERS: PCP Internal Medicine; Visit Provider Internal Medicine | DX: R91.1 Solitary pulmonary nodule (principal); I10 Essential (primary) hypertension; G20.A1 Parkinson's disease without dyskinesia, without mention of fluctuations; T17.908A Unspecified foreign body in respiratory tract, part unspecified causing other injury, initial encounter | CPT/HCPCS: 99212 ==

== ENCOUNTER 2024-10-25 11:18 | Outpatient (REF) | payer MEDICARE, SELFPAY ==
--- NOTE | ~2024-10-25 | XR_ITS ---
EXAMINATION: XR CHEST 2 VIEWS HISTORY: R05.9 - Cough, unspecified COMPARISON: Comparison is made with the prior examination dated 05/23/2021. FINDINGS: PA and lateral views of the chest are submitted. The lungs are expanded and clear. There is no pleural effusion, pneumothorax, or pulmonary vascular congestion. The heart is normal in size. There is degenerative disc disease of the spine. There are multiple old healed right rib fractures. XR/XR chest 2V IMPRESSION: No acute cardiopulmonary abnormality. Electronically signed by: Jan Fajardo MD 10/25/2024 12:49 PM EDT
--- OUTSIDE RECORDS SUMMARY | 2024-10-25 12:47 | XMS_ITS | Clinical Summary ---
Author Organization [address] [place] [address] Address [address] [place] [address] Phone Care Team Providers Care Drum Barker Operator Name Role Phone Betty Arevalo MD Primary Care Provider [phone] Allergies No known active allergies Medications amLODIPine-olmes [...] - 08/22/2024 11:59 PM EST Hospital Encounter [facility] Ortho Xray [address] [place] [address] Pain Discharge Disposition: Home or Self Care 08/17/2024 9:00 PM EST - 08/17/2024 10:34 PM EST Emergency [facility] Emergency [address] [place] [address] Closed dislocation of finger of right hand, initial encounter (Primary Dx) Discharge Disposition: Home or Self Care from Last 3 Months Surgical History Surgery Date Site/Laterality Comments OOPHORECTOMY TONSILLECTOMY ADENOIDECTOMY, BILATERAL MYRINGOTOMY AND TUBES SECTION Medical History Medical History Date Comments Hypertension Dementia ([facility] V24, [facility] V28) Hyperlipidemia Asthma Family History [...] UPPER EXTREMITY Routine 08/17/2024 9:33 PM EST NC CLOSED TX IPJ DISLOCATION SINGLE W/MANIPULATION WO ANESTHESIA Routine 08/17/2024 9:33 PM EST ED SPLINT APPLICATION Routine 08/17/2024 9:32 PM EST NC APPLICATION SPLINT STATIC FINGER Routine 08/17/2024 9:32 [...] Roslyn Haney Reviewed and Electronically Signed By: Roslny Haney Signed Date: 08/18/2024 10:52 ET Workstation ID: [id number] Transcribed By: Self Edit Transcribed Date: 08/18/2024 [...] Signed Date: 08/18/2024 10:52 ET Workstation ID: [id number] Transcribed By: Self Edit Transcribed Date: 08/18/2024 10:51 ET us Jan LIAO IMG XR PROCEDURES Final R esult * NC CLOSED TX IPJ DISLOCATION SINGLE W/MANIPULATION WO [...] and irreducible dislocation ??Alternatives discussed: ??No treatment [place] protocol: ??Procedure explained and questions answered to [...] IN CLINIC/BEDSIDE ORDERAB LES Final Result * [place] APPLICATION SPLINT STATIC FINGER, HC APPLICATION SPLINT/CAST/STRAP (08/17/2024 9:32 PM EST) Narrative Jeffrey Hwang MD - 08/17/2024 9:32 PM EST YANNI Middleton ? 08/17/2024 10:20 PM Splint Application Date/Time: 08/17/2024 9:32 PM Performed by: YANNI Middleton Authorized by: YANNI Middleton ?? Consent: ??Consent obtained: ??Verbal ??Consent given by: ??Patient ??Alternatives discussed: ??No treatment [place] protocol: ??Procedure explained and questions answered to [...] and allergic reaction ??Alternatives discussed: ??No treatment [place] protocol: ??Procedure explained and questions answered to [...] mg/dL LAB CHEMISTRY METHOD 06/24/2024 8:01 AM [facility] Triglycerides 130 0 - 150 mg/dL LAB CHEMISTRY METHOD 06/24/2024 8:01 AM [facility] HDL 54 >=40 mg/dL LAB CHEMISTRY METHOD 06/24/2024 8:01 AM [facility] LDL Calculated 68 0 - 100 mg/dL LAB CHEMISTRY METHOD 06/24/2024 8:01 AM [facility] VLDL Cholesterol Jose Luis 26 mg/dL LAB CHEMISTRY METHOD 06/24/2024 8:01 AM [facility] Non HDL Chol. (LDL+VLDL) 94 <145 mg/dL LAB CHEMISTRY METHOD 06/24/2024 8:01 AM [facility] Chol/HDL Ratio 2.7 0.0 - 4.4 LAB CHEMISTRY METHOD 06/24/2024 8:01 AM [facility] Blood Venous blood specimen / Unknown Venipuncture / Unknown 06/24/2024 6:16 AM EST 06/24/2024 6:43 AM EST us Anat LIAO LAB BLOOD ORDERABLES Final Resu lt [facility] [address] [place] [address], * (ABNORMAL) Comprehensive metabolic panel (06/24/2024 6:16 AM EST) Sodium 142 133 - 145 mmol/L LAB CHEMISTRY METHOD 06/24/2024 8:01 AM [facility] Potassium 4.3 3.5 - 5.5 mmol/L LAB CHEMISTRY METHOD 06/24/2024 8:01 AM [facility] Chloride 108 96 - 110 mmol/L LAB CHEMISTRY METHOD 06/24/2024 8:01 AM [facility] CO2 31 21 - 32 mmol/L LAB CHEMISTRY METHOD 06/24/2024 8:01 AM [facility] Anion Gap 3 3 - 11 LAB CHEMISTRY METHOD 06/24/2024 8:01 AM [facility] Glucose 104(H) 70 - 100 mg/dL LAB CHEMISTRY METHOD 06/24/2024 8:01 AM [facility] BUN 16 5 - 25 mg/dL LAB CHEMISTRY METHOD 06/24/2024 8:01 AM [facility] Creatinine 0.98 0.50 - 1.10 mg/dL LAB CHEMISTRY METHOD 06/24/2024 8:01 AM [facility] eGFR 57(L) >=60 mL/min/1. 73m2 LAB CHEMISTRY METHOD 06/24/2024 8:01 AM [facility] Comment:Calculation based on the??Chronic Kidney Disease Epidemiology Collaboration (CKD-EPI) equation refit??without adjustment for race. BUN/Creatinine Ratio 16.3 LAB CHEMISTRY METHOD 06/24/2024 8:01 AM [facility] Calcium 9.3 8.5 - 10.5 mg/dL LAB CHEMISTRY METHOD 06/24/2024 8:01 AM [facility] AST (SGOT) 24 10 - 42 unit/L LAB CHEMISTRY METHOD 06/24/2024 8:01 AM [facility] ALT (SGPT) 24 10 - 60 unit/L LAB CHEMISTRY METHOD 06/24/2024 8:01 AM [facility] Alkaline Phosphatase 76 42 - 121 unit/L LAB CHEMISTRY METHOD 06/24/2024 8:01 AM [facility] Total Protein 5.8(L) 6.0 - 8.0 g/dL LAB CHEMISTRY METHOD 06/24/2024 8:01 AM [facility] Albumin 3.2 3.2 - 5.0 g/dL LAB CHEMISTRY METHOD 06/24/2024 8:01 AM [facility] Total Bilirubin 0.8 0.0 - 1.4 mg/dL LAB CHEMISTRY METHOD 06/24/2024 8:01 AM EST [facility] Blood Venous blood specimen / Unknown Venipuncture / Unknown 06/24/2024 6:16 AM EST 06/24/2024 6:43 AM EST us Anat LIAO LAB BLOOD ORDERABLES Final Resu lt [facility] [address] [place] [address], [place] [phone] from Last 3 Months or Most Recently Relevant to Health Maintenance Insurance [employer]AGE on file Advance Directives Documents on File Type Date Recorded Patient Manager Operations Research Expl anation Advance Directives and Living Will 06/27/2024 10:01 AM Advance Directives and Living Will 06/25/2024 11:57 AM [facility] Proxy Advance Directives and Living Will 06/24/2024 3:50 PM Power of Door Core Assembler 06/24/2024 9:37 AM DURA BLE POA Advance [...] Healthcare Agent Relationshi p Communication Bennett Washington [facility] Health Care Agent Jan Feng [facility] Health Care Agent Christian Feng [facility] Health Care Agent Care Teams Drum Barker Operator Relationship Specialty Start Date End Date Betty Arevalo MD PCP - General Internal Medicine 06/13/24
--- OUTSIDE RECORDS SUMMARY | 2024-10-25 12:47 | XMS_ITS | Continuity of Care Document ---
Author Organization [facility] Address [address] [address] Phone Care Team Providers Care Emergency Care Attendant Name Role Phone Bang DAVIDSON, Aqib Unavailable Unavailable Advance Directives Directive Yes / No Effective Date File Name No Information Encounters Encounter Description Practice Location Reason(s) For Visit Diagnoses Date Provider [facility], [address] [address], [place], [place], [id number], [place] tel:[phone] [address] [place] [address] No Information 2024 Bang Aqib. [address] [place], [place], [id number], [place]. tel:[phone] Family History Family Member Type Diagnosis Age At Onset No Information Payers Payer name Insurance type Covered democrat ID Authoriza tion(s) No Information Social History Type Description Quantity Date Captured Comments Sex Female Smoking Status No Information Chief Complaint And Reason For Visit No Information History Of Present Illness Encounter Date Complaint History Of Prese nt Illness No Information Instructions Date Instruction Additional Infor mation No Information Assessments Type Assessment Date No Information
[2024-10-25 13:51] LABS: Influenza A PCR NEGATIVE (Negative); Influenza B PCR NEGATIVE (Negative); Resp Syncy Virus RNA Qual PCR NEGATIVE (Negative); SARS COV2 PCR INHOUSE NEGATIVE (Negative)
== END 2024-10-25 11:19 | disposition home or self-care (01) ==
LOC: HO.HMGCX 11:18
PROVIDERS: PCP Internal Medicine; Visit Provider Physician Assistant
DX: J22 Unspecified acute lower respiratory infection (principal); J45.901 Unspecified asthma with (acute) exacerbation; R05.9 Cough, unspecified; R09.89 Other specified symptoms and signs involving the circulatory and respiratory systems
CPT/HCPCS: 0241U; 71046; 99212

== ENCOUNTER 2024-10-25 11:18 | Outpatient (AMB) | payer MEDICARE, SELFPAY ==
--- NOTE | 2024-10-25 11:40 | AM.OFFWIN_ITS ---
Intake Vital Signs 10/25/24 11:41 BP 128/80 Blood Pressure Location Rt brachial Position Sitting Pulse 68 Pulse Source Pulse Oximeter Temp 98.5 F Temp Source Oral Pulse Oximetry (%) 95 Oxygen Delivery Method Room Air Intake Visit Reasons: EP-sob,cough Patient Tobacco Use Status: Never used Tobacco Allergies No Known Allergies Allergy (Verified 10/25/24 11:45) Do you need a note to return to daycare/school/sports/work: No HPI HPI Comments History of Present Illness Details History - The patient is an 84-year-old female p resenting with respiratory symptoms including cough and wheezing. - Her son is with her to help with her H PI. - Symptoms onset occurred approximately five to six days prior to the visit, with a notable period of wellness preceding this episode. - The patient reports shortness of breat h, cough, and wheezing, noting no symptoms of headache, sinus pain, ear pain, or chest pain. - The patient has a known history of ast hma, previously utilizing an albuterol inhaler to manage symptoms, which is currently out of stock. - No fever or recent use of cough medica tions was reported. Physical Exam General: Cooperative, healthy appearing, comfortable and no acute distress Orientation/consciousness: Patient oriented x3 Limitations: No limitations Head: Normal to inspection Ears: Hearing grossly normal bilaterally, external ears normal and TM's normal bilaterally Nose: Normal external nose present, Normal nares present and No nasal discharge present Face and sinus: Normal facial exam and Yes sinuses nontender Mouth: Normal oral and palatal mucosa present and moist mucous membranes Throat: Yes tonsils normal, Yes uvula midline. Posterior oropharynx erythema Eyes: Appearance normal, both eyes and all related structures Neck: Normal visual inspection Respiratory: Clear to auscultation bilaterally. Normal respiratory effort, able to speak in complete sentences, Actively coughing, wheezing, no respiratory distress, not tachypneic, no tripod positioning and no use of accessory muscles Cardiovascular: Regular rate and rhythm. Normal S1 and S2 Skin: No rashes or lesions noted Neuro: Patient oriented x3 Extremities: Normal to inspection and Yes no clubbing, cyanosis or edema [facility] Medical History HTN (hypertension) Hyperlipidemia Left carotid bruit Head trauma Glaucoma Surgical History H/O left knee surgery H/O colonoscopy Family History Father No problems noted. Mother No problems noted. Social History Household Members: Children Household Members Other:: [facility] assisted [facility] Housing: House Are you a primary primary care sales representative to a significant other at home: No Alcohol intake: current Alcohol intake frequency: holidays/special occasions only Patient Tobacco Use Status: Never used Tobacco e-Cigarette/Vaping Use: Never Used Second Hand Smoke Exposure: No service: No Current occupational status: retired Cognitive needs: No Hearing needs: No Vision needs: Yes Review of Systems Const All systems reviewed & are unremarkable except as noted in HPI and below Physical Exam Vital Signs: Last Vital Signs Temp 98.5 F 10/25/24 11:41 Pulse 68 10/25/24 11:41 BP 128/80 10/25/24 11:41 Pulse Ox 95 10/25/24 11:41 Oxygen Delivery Method Room Air 10/25/24 11:41 Assessment & Plan Assessment & Plan (1) Lower respiratory infection (e.g., bronchitis, pneumonia, pneumonitis, pulmonitis): Code(s): J22 - Unspecified acute lower respiratory infection Plan: Patient asked us to call her son, Oz, with results at [phone] or Bennett [phone]. If we end up sending abx once CXR is read, pls send to Eric. O2 sat 95% on RA otherwise VSS, pt well appearing and PE remarkable for insp/exp wheezes and dim lung sounds. Likely asthma exacerbation secondary to bronchitis. The management plan includes patient picking up a new albuterol inhaler (her PCP sent it to [facility] last month with 3 refills) to address the patient's asthma exacerbation, with instructions for use every four to six hours as necessary. A course of prednisone has been initiated to reduce airway inflammation, with two pills to be taken daily for five days. A chest x-ray is ordered to rule out pneumonia, and antibiotics will be provided if pneumonia is detected. The patient will be informed of the respiratory swab test results, including flu, COVID-19, and RSV, and management will be adjusted accordingly. The patient is to prioritize acquiring prescribed medications and to contact for further instructions upon receiving test results. If she experiences worsening of symptoms, she should go to the emergency department. Patient was informed and verbally consented to the use of an ambient scribe for clinic note documentation during this visit (2) Asthma exacerbation: Code(s): J45.901 - Unspecified asthma with (acute) exacerbation Qualifiers: Asthma severity: mild Asthma persistence: unspecified Qualified Code(s): J45.901 - Unspecified asthma with (acute) exacerbation Plan: as above Orders: Orders SARS-CoV2/FLU/RSV Today R09.89 - Other specified symptoms and signs involving the circulatory and respiratory systems XR chest 2V Today R05.9 - Cough, unspecified Medications: New prednisone 40 mg (2 x 20 mg) PO QAM 10 tabs 0RF Coding Level of Care Code Est Pt Level 4 (92356) Diagnoses Lower respiratory infection (e.g., bronchitis, pneumonia, pneumonitis, pulmonitis) J22 Mild asthma with exacerbation, unspecified whether persistent J45.901 Asthma severity: mild Asthma persistence: unspecified
[2024-10-25 11:41] VITALS: BP 128/80; PULSE 68; TEMP 36.9; O2SAT 95
--- OUTSIDE RECORDS SUMMARY | 2024-10-25 12:12 | XMS_ITS | Continuity of Care Document ---
Author Organization [facility] Address [address] [address] Phone Care Team Providers Care Reagent Tender Helper Name Role Phone Bang DAVIDSON, Aqib Unavailable Unavailable Advance Directives Directive Yes / No Effective Date File Name No Information Encounters Encounter Description Practice Location Reason(s) For Visit Diagnoses Date Provider [facility], [address] [address], [place], [place], [id number], [place] tel:[phone] [address] [place] [address] No Information 2024 Bang Aqib. [address] [place], [id number], [place]. tel:[phone] Family History Family Member Type Diagnosis Age At Onset No Information Payers Payer name Insurance type Covered libertarian ID Authoriza tion(s) No Information Social History Type Description Quantity Date Captured Comments Sex Female Smoking Status No Information Chief Complaint And Reason For Visit No Information History Of Present Illness Encounter Date Complaint History Of Prese nt Illness No Information Instructions Date Instruction Additional Infor mation No Information Assessments Type Assessment Date No Information
--- OUTSIDE RECORDS SUMMARY | 2024-10-25 12:12 | XMS_ITS | Clinical Summary ---
Author Organization [address] [place] [address] Address [address] [place] [address] Phone Care Team Providers Care Pipe Changer Name Role Phone Betty Arevalo MD Primary Care Provider [phone] Allergies No known active allergies Medications amLODIPine-olmes kimmy (DIONISIO) 5-20 mg per tablet Take 1 tablet by mouth 1 (one) time each day. 06/11/2024 Active donepeziL (ARICEPT) 5 mg tablet Take 1 tablet (5 mg total) by mouth at bedtime. 06/14/2024 Active furosemide (LASIX) 20 mg tablet Take 1 tablet (20 mg total) by mouth 1 (one) time per week. 4 each 06/25/2024 Active Active Problems Problem Noted Date Diagnosed Date Syncope 06/23/2024 Encounters Date Type Department Care Team Description 08/22/2024 9:04 AM EST - 08/22/2024 11:59 PM EST Hospital Encounter [facility] Ortho Xray [address] [place] [address] Pain Discharge Disposition: Home or Self Care 08/17/2024 9:00 PM EST - 08/17/2024 10:34 PM EST Emergency [facility] Emergency [address] [place] [address] Closed dislocation of finger of right hand, initial encounter (Primary Dx) Discharge Disposition: Home or Self Care from Last 3 Months Surgical History Surgery Date Site/Laterality Comments OOPHORECTOMY TONSILLECTOMY ADENOIDECTOMY, BILATERAL MYRINGOTOMY AND TUBES SECTION Medical History Medical History Date Comments Hypertension Dementia ([facility] V24, [facility] V28) Hyperlipidemia Asthma Family History Medical History Relation [...] Vaccines (1 of 2) 01/07/1990 RSV Immunization Adult Patients (1 - 1-dose 75+ series) 01/07/2015 Depression Screening 06/01/2022 Medicare Annual Wellness Visit 06/01/2022 Osteoporosis Screening (Bone Density Screening) 06/01/2022 Social Influencers of Health Screening 06/01/2022 COVID-19 Vaccine (3 - 2023-2 5 season) 2024 10/28/2020, 10/07/2020 Influenza Vaccine (Season Ended) 2025 Hypertension/CHF/CAD Annual BMP Blood Test 06/24/2025 06/24/2024, [...] age to complete this topic Meningococcal B Vaccine Aged Out No l onger eligible based on patient's age to complete [...] UPPER EXTREMITY Routine 08/17/2024 9:33 PM EST PA CLOSED TX IPJ DISLOCATION SINGLE W/MANIPULATION WO ANESTHESIA Routine 08/17/2024 9:33 PM EST ED SPLINT APPLICATION Routine 08/17/2024 9:32 PM EST PA APPLICATION SPLINT STATIC FINGER Routine 08/17/2024 9:32 PM EST ED DIGITAL BLOCK Routine 08/17/2024 9:14 PM EST XR FINGERS 2+ VIEWS RIGHT STAT 08/17/2024 8:15 PM EST COMPREHENSIVE METABOLIC PANEL Routine 06/24/2024 6:16 AM EST LIPID PANEL WITH REFLEX TO DIRECT LDL Routine 06/24/2024 6:16 AM EST from Last 3 Months or Most Recently Relevant to Health Maintenance Results * XR Hand 3+ Views Right [...] Signed Date: 08/18/2024 10:52 ET Workstation ID: [id number] Transcribed By: Self Edit Transcribed Date: 08/18/2024 [...] Signed Date: 08/18/2024 10:52 ET Workstation ID: [id number] Transcribed By: Self Edit Transcribed Date: 08/18/2024 10:51 ET us Jan LIAO IMG XR PROCEDURES Final R esult * PA CLOSED TX IPJ DISLOCATION SINGLE W/MANIPULATION WO [...] and irreducible dislocation ??Alternatives discussed: ??No treatment [place] protocol: ??Procedure explained and questions answered to [...] IN CLINIC/BEDSIDE ORDERAB LES Final Result * PA APPLICATION SPLINT STATIC FINGER, HC APPLICATION SPLINT/CAST/STRAP (08/17/2024 9:32 PM EST) Narrative Jeffrey Hwang MD - 08/17/2024 9:32 PM EST YANNI Middleton ? 08/17/2024 10:20 PM Splint Application Date/Time: 08/17/2024 9:32 PM Performed by: YANNI Middleton Authorized by: YANNI Middleton ?? Consent: ??Consent obtained: ??Verbal ??Consent given by: ??Patient ??Alternatives discussed: ??No treatment [place] protocol: ??Procedure explained and questions answered to [...] and allergic reaction ??Alternatives discussed: ??No treatment [place] protocol: ??Procedure explained and questions answered to [...] IN CLINIC/BEDSIDE ORDERAB LES Final Result * Lipid panel with reflex to direct LDL (06/24/2024 6:16 AM EST) Cholesterol 148 0 - 200 mg/dL LAB CHEMISTRY METHOD 06/24/2024 8:01 AM [facility] Triglycerides 130 0 - 150 mg/dL LAB CHEMISTRY METHOD 06/24/2024 8:01 AM [facility] HDL 54 >=40 mg/dL LAB CHEMISTRY METHOD 06/24/2024 8:01 AM [facility] LDL Calculated 68 0 - 100 mg/dL LAB CHEMISTRY METHOD 06/24/2024 8:01 AM [facility] VLDL Cholesterol Jose Luis 26 mg/dL LAB CHEMISTRY METHOD 06/24/2024 8:01 AM [facility] Non HDL Chol. (LDL+VLDL) 94 <145 mg/dL LAB CHEMISTRY METHOD 06/24/2024 8:01 AM [facility] Chol/HDL Ratio 2.7 0.0 - 4.4 LAB CHEMISTRY METHOD 06/24/2024 8:01 AM [facility] Blood Venous blood specimen / Unknown Venipuncture / Unknown 06/24/2024 6:16 AM EST 06/24/2024 6:43 AM EST us Anat LIAO LAB BLOOD ORDERABLES Final Resu lt [facility] [address] [place] [address], * (ABNORMAL) Comprehensive metabolic panel (06/24/2024 6:16 AM EST) Sodium 142 133 - 145 mmol/L LAB CHEMISTRY METHOD 06/24/2024 8:01 AM [facility] Potassium 4.3 3.5 - 5.5 mmol/L LAB CHEMISTRY METHOD 06/24/2024 8:01 AM [facility] Chloride 108 96 - 110 mmol/L LAB CHEMISTRY METHOD 06/24/2024 8:01 AM [facility] CO2 31 21 - 32 mmol/L LAB CHEMISTRY METHOD 06/24/2024 8:01 AM [facility] Anion Gap 3 3 - 11 LAB CHEMISTRY METHOD 06/24/2024 8:01 AM [facility] Glucose 104(H) 70 - 100 mg/dL LAB CHEMISTRY METHOD 06/24/2024 8:01 AM [facility] BUN 16 5 - 25 mg/dL LAB CHEMISTRY METHOD 06/24/2024 8:01 AM [facility] Creatinine 0.98 0.50 - 1.10 mg/dL LAB CHEMISTRY METHOD 06/24/2024 8:01 AM [facility] eGFR 57(L) >=60 mL/min/1. 73m2 LAB CHEMISTRY METHOD 06/24/2024 8:01 AM [facility] Comment:Calculation based on the??Chronic Kidney Disease Epidemiology Collaboration (CKD-EPI) equation refit??without adjustment for race. BUN/Creatinine Ratio 16.3 LAB CHEMISTRY METHOD 06/24/2024 8:01 AM [facility] Calcium 9.3 8.5 - 10.5 mg/dL LAB CHEMISTRY METHOD 06/24/2024 8:01 AM [facility] AST (SGOT) 24 10 - 42 unit/L LAB CHEMISTRY METHOD 06/24/2024 8:01 AM [facility] ALT (SGPT) 24 10 - 60 unit/L LAB CHEMISTRY METHOD 06/24/2024 8:01 AM [facility] Alkaline Phosphatase 76 42 - 121 unit/L LAB CHEMISTRY METHOD 06/24/2024 8:01 AM [facility] Total Protein 5.8(L) 6.0 - 8.0 g/dL LAB CHEMISTRY METHOD 06/24/2024 8:01 AM [facility] Albumin 3.2 3.2 - 5.0 g/dL LAB CHEMISTRY METHOD 06/24/2024 8:01 AM [facility] Total Bilirubin 0.8 0.0 - 1.4 mg/dL LAB CHEMISTRY METHOD 06/24/2024 8:01 AM EST [facility] Blood Venous blood specimen / Unknown Venipuncture / Unknown 06/24/2024 6:16 AM EST 06/24/2024 6:43 AM EST us Anat LIAO LAB BLOOD ORDERABLES Final Resu lt [facility] [address] [place] [address], [place] [phone] from Last 3 Months or Most Recently Relevant to Health Maintenance Insurance [employer] on file Advance Directives Documents on File Type Date Recorded Patient Typesetters Printer Expl anation Advance Directives and Living Will 06/27/2024 10:01 AM Advance Directives and Living Will 06/25/2024 11:57 AM [facility] Care Proxy Advance Directives and Living Will 06/24/2024 3:50 PM Power of Data Analytics Analyst 06/24/2024 9:37 AM DURA BLE POA Advance [...] Healthcare Agent Relationshi p Communication Bennett Washington [facility] Care Agent Jan Feng [facility] Health Care Agent Christian Feng [facility] Health Care Agent Care Teams Pipe Changer Relationship Specialty Start Date End Date Betty Arevalo MD PCP - General Internal Medicine 06/13/24
== END 2024-10-25 12:21 | disposition home or self-care (01) ==
PROVIDERS: PCP Internal Medicine; Visit Provider Physician Assistant
DX: J22 Unspecified acute lower respiratory infection (principal); J45.901 Unspecified asthma with (acute) exacerbation

== ENCOUNTER → 2024-10-25 12:06 | Outpatient (BNV) | payer MEDICARE, SELFPAY | PROVIDERS: PCP Internal Medicine; Visit Provider Radiology Diagnostic Radiology | DX: R05.9 Cough, unspecified (principal) | CPT/HCPCS: 71046 ==